=== PATIENT | male | born 1940 | race Caucasian/White ===

== ENCOUNTER 2016-09-07 16:34 | Inpatient (IN) | payer MEDICARE, OTHER ==
--- NOTE | 2016-09-07 17:34 | RAD ---
INDICATION: Short of breath . Recent valvular surgery. COMPARISON: Chest x-ray June 07, 2015 TECHNIQUE: PA and lateral dual-energy views were obtained. FINDINGS: Bones/Soft Tissues: There is interval sternotomy. There is interval cardiac pacemaker placement. Cardiomediastinal: The heart is normal in size. There is no vascular congestion. Lungs: There is mild airspace disease in right lung base Pleura: There are bilateral pleural effusions right greater than left. Other: None IMPRESSION: INTERVAL CARDIOTHORACIC SURGERY. MILD RIGHT BASILAR AIRSPACE DISEASE WITH SMALL BILATERAL PLEURAL EFFUSIONS RIGHT GREATER THAN LEFT.
[2016-09-07 18:53] LABS: Hematocrit 38 % (42-52); Hemoglobin 12.4 g/dl (14.0-18.0); Mean Corpuscular HGB Conc 33 g/dl (31-36); Mean Corpuscular Hemoglobin 28 pg (27-31); Mean Corpuscular Volume 86 fL (80-94); Mean Platelet Volume 8 um3 (7.4-10.4); Red Blood Count 4.39 10^6/ul (4.0-5.4); Red Cell Distribution Width 15 % (10.5-15)
[2016-09-07] MEDS ORDERED: Acetaminophen TAB* 325 MG PO PRN (18:57)
[2016-09-07] MEDS ORDERED: Acetaminophen TAB* 325 MG PO ONE (18:57)
[2016-09-07] MEDS ORDERED: Levofloxacin 750 MG IVPREMIX(* 750 MG/150 ML BAG IVPB ONE (19:06)
[2016-09-07 19:07] LABS: BUN/Creatinine Ratio 18.7 (8-20); C Reactive Protein 246.88 mg/L (< 5.00); Calcium 9.5 mg/dL (8.6-10.3); EGFR African American 67.2 (>60); EGFR Non-African American 52.3 (>60); Globulin 3.8 g/dL (2-4); Potassium 4.7 mmol/L (3.5-5.0); Total Bilirubin 1.5 mg/dL (0.2-1.0); Total Protein 7.8 g/dL (6.4-8.9)
[2016-09-07 19:13] LABS: Troponin I 0.18 ng/mL (<0.04)
[2016-09-07] MEDS ORDERED: Azithromycin IV(*) 500 MG in NS 0.9% 250 ML* 250 ML IVPB ONE (19:14)
--- NOTE | 2016-09-07 19:18 | ED ---
Sabino Morillo Janilya, scribed for Britt Servin MD on 09/07/16 at 1802 . Shortness of Breath - HPI Summary HPI Summary: A 75 y/o male came in to [facility] presenting w/ a gradual onset of constant SOB, low-grade fever of 100.5 F, and light productive cough starting a few days ago. Pt has been using Oxygen, which has relived some of his Sx. In addition, pt states that he has been sleeping more than usual. Pt denies urinary problems. On the or 26 of August, pt had aortic valve replacement and artery bypass surgeries in [place], [place]. The following week, pt had a pacemaker put in. Pt has been taking aspirin. - History of Current Complaint Chief Complaint: EDShortnessOfBreath Time Seen by Provider: 09/07/16 17:14 Hx Obtained From: Patient Onset/Duration: Gradual Onset, Lasting Days, Still Present Timing: Constant Current Severity: Moderate Alleviating Factors: Oxygen Associated Signs & Symptoms: Cough (Productive), Fever - Risk Factors Pulmonary Embolism: Negative Cardiac: Negative Pseudomonas: Negative Tuberculosis: Negative - Allergy/Home Medications Allergies/Adverse Reactions: Allergies Allergy/AdvReac Type Severity Reaction Status Date / Time No Known Drug Allergy Allergy none Verified 06/19/15 11:56 bees AdvReac Intermediate Swelling Uncoded 06/18/15 08:19 Home Medications: Home Medications Furosemide TAB* [Lasix TAB*] 40 mg PO DAILY 09/07/16 [History Confirmed 09/07/16 ] Gpzfkbyumzm-Altlmwjagpz-Vjg C- [Glucosamine Chondroitin] 1 tab PO DAILY [History Confirmed 09/07/16] Levothyroxine TAB* [Synthroid TAB*] 112 mcg PO DAILY 09/07/16 [History Confirmed 09/07/16] Lisinopril TAB* [Prinivil TAB*] 10 mg PO DAILY 09/07/16 [History Confirmed 09/07] Metoprolol Succinate XL TAB* [Toprol XL TAB*] 25 mg PO DAILY 09/07/16 [History Confirmed 09/07/16] Potassium Chlor TAB* [Klor Con ER TAB*] 20 meq PO DAILY 09/07/16 [History Confirmed 09/07/16] Simvastatin (NF) [Zocor (NF)] 40 mg PO QPM 09/07/16 [History Confirmed 09/07/16] oxyCODONE TAB* [Roxycodone TAB 5 mg*] 5 - 10 mg PO Q4HR 09/07/16 [History Confirmed 09/07/16] PMH/Surg Hx/FS Hx/Imm Hx Endocrine/Hematology History: Reports: Hx Diabetes, Hx Thyroid Disease Cardiovascular History: Reports: Hx Coronary Artery Disease - STENT 2010, Hx Hypertension - ON MEDICATION, Hx Myocardial Infarction - SILENT NOT SURE WHEN, Hx Pacemaker/ICD, Hx Valvular Heart Disease - AORTIC VALVE DISORDER, Other Cardiovascular Problems/Disorders - AORTIC ANEURYSM Respiratory History: Reports: Hx Sleep Apnea Denies: Hx Asthma Musculoskeletal History: Reports: Hx Arthritis - LEFT KNEE JOINT Sensory History: Reports: Hx Contacts or Glasses - GLASSES Denies: Hx Hearing Aid Opthamlomology History: Reports: Hx Contacts or Glasses - GLASSES - Surgical History Surgery Procedure, Year, and Place: HERNIA 1963. 2009 [facility]. 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 Have You Smoked in the Last Year: No Review of Systems Positive: Fever - 100.5 F Positive: Shortness Of Breath, Cough - light productive cough Genitourinary: Negative All Other Systems Reviewed And Are Negative: Yes Physical Exam Triage Information Reviewed: Yes Vital Signs On Initial Exam: Initial Vitals Temp Pulse Resp BP Pulse Ox 100.8 F 61 20 152/39 96 09/07/16 16:38 09/07/16 16:38 09/07/16 16:38 09/07/16 16:38 09/07/16 16:38 Vital Signs Reviewed: Yes Appearance: Positive: Well-Appearing, No Pain Distress Skin: Positive: Warm, Skin Color Reflects Adequate Perfusion, Dry, Other - Feels warm to touch Eyes: Positive: EOMI, TELMA ENT: Positive: Pharynx normal, TMs normal Neck: Positive: Supple, Nontender Respiratory/Lung Sounds: Positive: Clear to Auscultation, Breath Sounds Present. Negative: Rales, Rhonchi - no wheezes Cardiovascular: Positive: Tachycardia. Negative: Murmur, Rub - no gallops Abdomen Description: Positive: Nontender, Soft. Negative: Distended, Guarding - no rebound Bowel Sounds: Positive: Present Musculoskeletal: Positive: Strength/ROM Intact. Negative: Edema Left, Edema Right Neurological: Positive: Sensory/Motor Intact, Alert, Oriented to Person Place, Time, CN Intact II-III Psychiatric: Positive: Affect/Mood Appropriate Diagnostics - Vital Signs Vital Signs Temp Pulse Resp BP Pulse Ox 09/07/16 16:38 100.8 F 61 20 152/39 96 - Laboratory Lab Results: Lab Results 09/07/16 09/07/16 09/07/16 Range/Units 18:30 18:30 18:30 WBC 18.0 H (3.5-10.8) 10^3/ul RBC 4.39 (4.0-5.4) 10^6/ul Hgb 12.4 L (14.0-18.0) g/dl Hct 38 L (42-52) % MCV 86 (80-94) fL MCH 28 (27-31) pg MCHC 33 (31-36) g/dl RDW 15 (10.5-15) % Plt Count 254 (150-450) 10^3/ul MPV 8 (7.4-10.4) um3 Neut % (Auto) 92.1 H (38-83) % Lymph % (Auto) 2.6 L (25-47) % Hall % (Auto) 4.6 (1-9) % Eos % (Auto) 0 (0-6) % Baso % (Auto) 0.7 (0-2) % Absolute Neuts (auto) 16.5 H (1.5-7.7) 10^3/ul Absolute Lymphs (auto) 0.5 L (1.0-4.8) 10^3/ul Absolute Monos (auto) 0.8 (0-0.8) 10^3/ul Absolute Eos (auto) 0 (0-0.6) 10^3/ul Absolute Basos (auto) 0.1 (0-0.2) 10^3/ul Absolute Nucleated RBC 0 10^3/ul Nucleated RBC % 0 Sodium 134 (133-145) mmol/L Potassium 4.7 (3.5-5.0) mmol/L Chloride 102 (101-111) mmol/L Carbon Dioxide 24 (22-32) mmol/L Anion Gap 8 (2-11) mmol/L BUN 25 H (6-24) mg/dL Creatinine 1.34 H (0.67-1.17) mg/dL Est GFR ( Amer) 67.2 (>60) Est GFR (Non-Af Amer) 52.3 (>60) BUN/Creatinine Ratio 18.7 (8-20) Glucose 166 H (70-100) mg/dL Lactic Acid 1.8 (0.5-2.0) mmol/L Calcium 9.5 (8.6-10.3) mg/dL Total Bilirubin 1.50 H (0.2-1.0) mg/dL AST 27 (13-39) U/L ALT 29 (7-52) U/L Alkaline Phosphatase 70 (34-104) U/L Troponin I 0.18 H* (<0.04) ng/mL C-Reactive Protein 246.88 H (< 5.00) mg/L B-Natriuretic Peptide ( - 100) pg/mL Total Protein 7.8 (6.4-8.9) g/dL Albumin 4.0 (3.2-5.2) g/dL Globulin 3.8 (2-4) g/dL Albumin/Globulin Ratio 1.1 (1-3) Influenza A (Rapid) (Negative) Influenza B (Rapid) (Negative) 09/07/16 09/07/16 Range/Units 18:30 18:55 WBC (3.5-10.8) 10^3/ul RBC (4.0-5.4) 10^6/ul Hgb (14.0-18.0) g/dl Hct (42-52) % MCV (80-94) fL MCH (27-31) pg MCHC (31-36) g/dl RDW (10.5-15) % Plt Count (150-450) 10^3/ul MPV (7.4-10.4) um3 Neut % (Auto) (38-83) % Lymph % (Auto) (25-47) % Hall % (Auto) (1-9) % Eos % (Auto) (0-6) % Baso % (Auto) (0-2) % Absolute Neuts (auto) (1.5-7.7) 10^3/ul Absolute Lymphs (auto) (1.0-4.8) 10^3/ul Absolute Monos (auto) (0-0.8) 10^3/ul Absolute Eos (auto) (0-0.6) 10^3/ul Absolute Basos (auto) (0-0.2) 10^3/ul Absolute Nucleated RBC 10^3/ul Nucleated RBC % Sodium (133-145) mmol/L Potassium (3.5-5.0) mmol/L Chloride (101-111) mmol/L Carbon Dioxide (22-32) mmol/L Anion Gap (2-11) mmol/L BUN (6-24) mg/dL Creatinine (0.67-1.17) mg/dL Est GFR ( Amer) (>60) Est GFR (Non-Af Amer) (>60) BUN/Creatinine Ratio (8-20) Glucose (70-100) mg/dL Lactic Acid (0.5-2.0) mmol/L Calcium (8.6-10.3) mg/dL Total Bilirubin (0.2-1.0) mg/dL AST (13-39) U/L ALT (7-52) U/L Alkaline Phosphatase (34-104) U/L Troponin I (<0.04) ng/mL C-Reactive Protein (< 5.00) mg/L B-Natriuretic Peptide 299 H ( - 100) pg/mL Total Protein (6.4-8.9) g/dL Albumin (3.2-5.2) g/dL Globulin (2-4) g/dL Albumin/Globulin Ratio (1-3) Influenza A (Rapid) Negative (Negative) Influenza B (Rapid) Negative (Negative) Result Diagrams: 09/07/16 18:30 09/07/16 18:30 Lab Statement: Any lab studies that have been ordered have been reviewed, and results considered in the medical decision making process. - Radiology CXR Xray Interpretation: Positive (See Comments) - IMPRESSION: INTERVAL CARDIOTHORACIC SURGERY. MILD RIGHT BASILAR AIRSPACE DISEASE WITH SMALL BILATERAL PLEURAL EFFUSIONS RIGHT GREATER THAN LEFT. Radiology Interpretation Completed By: Radiologist - EKG 1634 Cardiac Rate: Tachycardia EKG Rhythm: Sinus Tachycardia - at 114 bpm EKG Interpretation: right BBB, PVC, with premature beats; similar to EKG on 12/2014 Course/Dx - Course Course Of Treatment: 75 yo male s/p aortic valve replacement sent in by Dr. Weiss with sob pt has wbc of 18K and a likely pneumonia. Hospitalist is already in the room, sepsis is in the differential as well as chf, but his bnp is not elevated. The hospitalist will be deciding on fluids for this pt. We did decide on abx and ceftriaxone and azithro have been ordered. Labs drawn at the [facility] show a ddimer that is elevated and the hospitalist will be made aware of this as well. - Diagnoses Provider Diagnoses: Pneumonia Discharge - Discharge Plan Condition: Stable Disposition: ADMITTED TO [facility] Referrals: Omari Gonzalez MD [Primary Care Provider] - The documentation as recorded by the Sabino tang Janilya accurately reflects the service I personally performed and the decisions made by me, Britt Servin MD.
[2016-09-07] MEDS ORDERED: oxyCODONE/Acetamin 5/325 MG* TAB PO PRN (19:29)
[2016-09-07] MEDS ORDERED: Ondansetron INJ* 2 MG/ML VIAL IV PRN (19:29)
[2016-09-07] MEDS ORDERED: NS 0.9% 1000 ML* 1,000 ML IV SCH (19:30)
[2016-09-07] MEDS ORDERED: Azithromycin IV(*) 500 MG in NS 0.9% 250 ML* 250 ML IVPB SCH (20:00)
[2016-09-07] MEDS ORDERED: cefTRIAXone VIAL(*) 1,000 MG in NS 0.9% 50 ML* 50 ML IVPB SCH (20:00)
[2016-09-07] MEDS ORDERED: Enoxaparin(*) 40 MG/0.4 ML SYR SUBCUT SCH (20:00)
[2016-09-07] MEDS ORDERED: cefTRIAXone VIAL(*) 1,000 MG in NS 0.9% 50 ML* 50 ML IVPB ONE (20:00)
[2016-09-07] MEDS ORDERED: Cefepime(*) 2 GM in NS 0.9% 50 ML* 50 ML IVPB SCH (20:00)
[2016-09-07] MEDS ORDERED: Levofloxacin 500 MG IVPREMIX(* 500 MG/100 ML BAG IVPB SCH (20:00)
[2016-09-07 20:08] LABS: Urine Bilirubin Negative (Negative); Urine Glucose Negative (Negative); Urine Nitrite Negative (Negative)
[2016-09-07] MEDS ORDERED: ceFAZolin 2 GM PREMIX (*) 0 GM/0 ML BAG IVPB ONE (20:18)
[2016-09-07] MEDS ORDERED: Levofloxacin 500 MG IVPREMIX(* 500 MG/100 ML BAG IVPB ONE (20:30)
[2016-09-07] MEDS ORDERED: Heparin DRIP 25,000 UNITS(*) 25,000 UNITS/500 ML BAG IVPB SCH (20:30)
[2016-09-07] MEDS ORDERED: Heparin VIAL(*) 5000 UNITS/ML VIAL (FIVE THOUSAND) IV SCH (21:00)
--- NOTE | 2016-09-07 21:14 | HP ---
HISTORY AND PHYSICAL:* ADDENDUM: DATE OF ADMISSION: 09/07/16 Shortly after admission, it was made aware that his outpatient labs from earlier today included a D-dimer which was grossly positive, reported at greater than 1050. This certainly may be due to recent surgery, but PE cannot be excluded. He is not a good candidate for CTA at this time due to his acute kidney injury. We will elect to hydrate him overnight to repeat basic metabolic panel in the morning and in the interim empirically treat with a heparin drip. Assuming that his renal function improves back to baseline tomorrow, he will undergo CTA to evaluate for pulmonary embolus to further determine longer term anticoagulation needs. JHONY ALBA [id number]/[facility] #: [id number]
[2016-09-07] MEDS ORDERED: CEFTAZIDIME 2 GM IVPB SCH ×2 (21:30)
--- NOTE | 2016-09-07 21:33 | HP ---
ADDENDUM NOW INCLUDED ON THIS REPORT ADMISSION HISTORY AND PHYSICAL: DATE OF ADMISSION: 09/07/16 PRIMARY CARE PROVIDER: Omari Gonzalez MD PRIMARY ELECTRONIC MUSICAL INSTRUMENT REPAIRER: Dr. Weiss. SUPERVISING PHYSICIAN: Everardo Cutler MD* (DICTATED BY JHONY ALBA) CHIEF COMPLAINT: Dyspnea. HISTORY OF PRESENT ILLNESS: This is a 75-year-old gentleman who recently underwent aortic valve replacement, CABG, and pacemaker placement who was referred by Dr. Weiss to the emergency department for evaluation of dyspnea. The patient's dyspnea started earlier this morning but he has had a productive cough over the last couple of days. He has been afebrile at home, but reports increased fatigue over the last couple of days and has been sleeping the majority of the day. The patient had a routine scheduled followup with Dr. Weiss today where he mentioned the dyspnea. He underwent pacemaker interrogation and echocardiogram, results of which are not available for review at this time. The patient reports no lower extremity edema or complaints of orthopnea. Denies abdominal pain, nausea, vomiting, diarrhea or urinary symptoms. PAST MEDICAL HISTORY: 1. Hypertension. 2. Aortic stenosis, status post aortic valve replacement. 3. Coronary artery disease, status post CABG. 4. Third degree heart block status post pacemaker placement. 5. Osteoarthritis. 6. History of diabetes, which improved with weight loss. 7. Hyperlipidemia. 8. Hypothyroidism. 9. AAA noted to be stable on prior imaging. PAST SURGICAL HISTORY: 1. CABG and aortic valve replacement on 08/25/16. 2. Pacemaker insertion on 08/31/16. 3. Bilateral inguinal hernia repairs. 4. Total knee arthroplasty. HOME MEDICATIONS: 1. Aspirin 162.5 mg p.o. daily. 2. Lasix 40 mg p.o. daily. 3. Glucosamine and chondroitin supplement 1 tablet p.o. daily. 4. Levothyroxine 112 mcg p.o. daily. 5. Lisinopril 10 mg p.o. daily. 6. Metoprolol succinate 25 mg p.o. daily. 7. Potassium chloride 20 mEq p.o. daily. 8. Simvastatin 40 mg p.o. daily. 9. Oxycodone 5 mg p.o. q.4 hours as needed for pain. FAMILY HISTORY: A brother had a history of acute MO and another brother had what sounded to be congenital heart disease. SOCIAL HISTORY: The patient lives with a female partner. He has less than 5- pack- year smoking history and denies any regular alcohol consumption. REVIEW OF SYSTEMS: As listed above in HPI and otherwise negative. PHYSICAL EXAMINATION GENERAL: This is a pleasant 75-year-old gentleman, lying comfortably in the hospital stretcher, accompanied by female partner, in no acute distress. VITAL SIGNS: Initial vitals are temperature 100.8 degrees Fahrenheit, pulse 61 beats per minute, respiratory rate 20, oxygen saturation 96% on room air, and blood pressure of 152/39 mmHg. Repeat vitals in the emergency department showed temperature at 102.8 degrees Fahrenheit, and pulse gianluca to 117 beats per minute, respiratory rate of 26, and oxygen saturation 95% on 2 L but blood pressure remaining the same at 154/48 mmHg. HEENT: Head is normocephalic and atraumatic. Mucous membranes are mildly dry. NECK: Supple and free of lymphadenopathy. No JVD appreciated. RESPIRATORY: There are reduced breath sounds appreciated in the right lower lobe but otherwise clear without crackles, rhonchi, or wheeze. CARDIOVASCULAR: Heart has a regular rate and rhythm. There is a subtle murmur appreciated. ABDOMEN: Soft and nontender to palpation. EXTREMITIES: No lower extremity edema appreciated. SKIN: Evaluated recent surgical sites, which includes a midline sternotomy incision that appears to be healing well without significant erythema or purulent drainage. There is also a pacemaker placed in the left upper chest. Steri-Strips are still in place, but again no gross erythema or purulent drainage. No fluctuance appreciated. PSYCH: The patient is alert and appropriately oriented. LABORATORY DATA: CBC: White blood cell count of 18,000, hemoglobin 12.4 g/dL , and platelet count of 254,000. Comprehensive metabolic panel shows normal sodium of 134 mmol/L, potassium 4.7 mmol/L. BUN elevated at 25, creatinine elevated at 1.34. Random glucose of 166 mg/dL. Total bilirubin mildly elevated at 1.5 with normal transaminases. Troponin mildly elevated at 0.18. CRP significantly elevated at 246. BNP mildly elevated at 299,000. Influenza screening is negative. Chest x-ray shows right pleural effusion. EKG shows sinus rhythm with biphasic precordial leads and a borderline right bundle- branch block. ASSESSMENT AND PLAN: This is a 75-year-old gentleman with a recent aortic valve replacement and CABG and pacemaker insertion who presents with dyspnea and productive cough, noted to be febrile in the emergency department. He is being admitted for presumed pneumonia. 1. Pneumonia - no significant infiltrate appreciated on chest x-ray, but there is pleural effusion and has history of productive cough and dyspnea accompanying obvious infectious parameters including fever, leukocytosis, and elevated CRP makes this most likely to be pneumonia. Urinalysis and culture are still pending. Blood cultures have also been collected. Based on his recent surgery and hospitalization, this will be classified as a hospital required pneumonia and treated as such with Levaquin, vancomycin, and cefepime. Sputum cultures have also been ordered. 2. Acute kidney injury - assume this is due to his acute infectious stage. Hold his Lasix and we will give him 1 L of fluid slowly. 3. Elevated troponin - assume this is demand related at this time. We will cycle troponins accordingly. 4. Recent pacemaker placement for what sounds to be third degree block. 5. Recent CABG and aortic valve replacement at [place]. 6. Hypothyroidism. Continue levothyroxine. 7. Hypertension. Continue metoprolol succinate. We will hold JIMENA inhibitor in the setting of acute kidney injury. 8. Hyperlipidemia - continue simvastatin. 9. Code status. The patient is full code. 10. DVT prophylaxis. The patient is at moderate to high risk for DVT and will be placed on 40 mg of Lovenox subcu daily. 11. Healthcare proxy is the patient's stepdaughter, Ro Rasmussen. DISPOSITION: The patient is being admitted to the hospital under inpatient status for pneumonia, status post CABG, aortic valve replacement, and pacemaker placement. ANTICIPATED LENGTH OF STAY: Greater than 2 days. JHONY ALBA ADDENDUM: DATE OF ADMISSION: 09/07/16 Shortly after admission, it was made aware that his outpatient labs from earlier today included a D-dimer which was grossly positive, reported at greater than 1050. This certainly may be due to recent surgery, but PE cannot be excluded. He is not a good candidate for CTA at this time due to his acute kidney injury. We will elect to hydrate him overnight to repeat basic metabolic panel in the morning and in the interim empirically treat with a heparin drip. Assuming that his renal function improves back to baseline tomorrow, he will undergo CTA to evaluate for pulmonary embolus to further determine longer term anticoagulation needs. JHONY ALBA CC: Omari Gonzalez MD; Dr. Weiss * [id number]/[facility] #: [id number]/[facility] #: [id number] BESSY
[2016-09-07] MEDS ORDERED: NS 0.9% 1000 ML* 500 ML IV ONE (21:34)
[2016-09-07] MEDS ORDERED: Vancomycin(*) 1,250 MG in NS 0.9% 250 ML* 250 ML IVPB ONE (22:00)
[2016-09-08 00:26] LABS: FIO2 40
[2016-09-08 00:29] LABS: PCO2 Arterial 35 mmHg (35-45)
[2016-09-08] MEDS ORDERED: Iodixanol* (CONTRAST) 320 MG/ML 100 ML SDV IV ONE (00:44)
[2016-09-08] MEDS ORDERED: Norepinephrine 16MCG/ML IVPRE* 4,000 MCG/250 ML BAG IV ONE ×2 (01:22→03:30)
[2016-09-08] MEDS ORDERED: Succinylcholine* 20 MG/ML 10 ML VIAL ONE (01:32)
[2016-09-08] MEDS ORDERED: Etomidate* 2 MG/ML 20 ML VIAL (40 MG) ONE (01:33)
[2016-09-08] MEDS ORDERED: Norepinephrine 16MCG/ML IVPRE* 4,000 MCG/250 ML BAG IV SCH (02:00)
[2016-09-08] MEDS ORDERED: NS 0.9% 1000 ML* 1,000 ML IV SCH (02:00)
[2016-09-08] MEDS ORDERED: Propofol* 100 ML ONE (02:42)
--- NOTE | 2016-09-08 02:52 | DS ---
TRANSFER SUMMARY Date of Admission: 09/07/2016 Date of Discharge: 09/08/2016 TRANSFER Diagnoses massive B pulmonary embolisms 2 weeks s/p bovine AVR & 1vCABG via sternotomy 1 week s/p pacer placement for 3rd degree AV block DM2, diet controlled HTN HLD hypothyroidism HPI This is a 75-year-old gentleman who recently underwent aortic valve replacement , CABG, and pacemaker placement who was referred by Dr. Weiss to the emergency department for evaluation of dyspnea. The patient's dyspnea started earlier this morning but he has had a productive cough over the last couple of days. He has been afebrile at home, but reports increased fatigue over the last couple of days and has been sleeping the majority of the day. The patient had a routine scheduled followup with Dr. Weiss today where he mentioned the dyspnea. He underwent pacemaker interrogation and echocardiogram, results of which are not available for review at this time. The patient reports no lower extremity edema or complaints of orthopnea. Denies abdominal pain, nausea, vomiting, diarrhea or urinary symptoms. Hospital Course Mr Morris presented during the day with constellation most concerning for HCAP. However due to his high risk of PE and concurrent JUAN it was decided to initiate heparin GTT, rehydrate the kidneys overnight, & perform CTA in AM. However within hours of admission, Mr Morris sat up to use a urinal becoming instantly severely SOB, tachycardic in the 150s, and hypotensive with systolics in the 70s-80s. He had no chest pain. SaO2 dropped to the high 80s, but were easily brought back to the mid 90s with an oxymask at ~5L. He was sent immediately to CTA of chest and then to ICU. Films were reviewed by myself in radiology identifying B massive pulmonary embolisms. As we do not have the capability for thrombectomy or intravascular tPA, a call to [facility] where he had his bovine AVR, 1vCABG, & pacer placed recently was made. Dr Tamez accepted the patient and ICU bed [address] Torres, ED graciously placed a femoral line for use of norepinephrine GTT for pressure support. Due to his co- morbidities and massive clot burden decision was made to intubate for safety en route. He will be sent on NS @125cc/hr, heparin GTT, norepinephrine GTT, & propofol GTT. Discharge Exam Lungs: clear CV: sinus tach, normal S1S2 abdomen: SNTND skin: diaphoretic, cool Radiology Exams CTA chest: massive B pulmonary embolism CXR: mild R basilar airspace disease, small B effusions Time for Discharge: 40min
[2016-09-08] MEDS ORDERED: fentaNYL* 50 MCG/ML 5 ML VIAL (250 MCG VIAL) ONE ×2 (03:30→03:34)
[2016-09-08 05:54] VITALS: BP 106/48
[2016-09-08] MEDS ORDERED: Levothyroxine TAB* 112 MCG TAB PO SCH (06:00)
--- NOTE | 2016-09-08 06:54 | PN ---
Progress Note - Progress Note Note: INTUBATION PROCEDURE NOTE INDICATION: airway protection in a critically ill patient for transfer to [facility] PROCEDURE PARACHUTE/COMBATANT DIVER OFFICER: Jose Leos MD ATTENDING PHYSICIAN: Bijan Torres MD CONSENT: Consent was obtained from Mr Morris prior to the procedure. Indications , risks, and benefits were explained at length. PROCUDURE SUMMARY: My hands were washed immediately prior to the procedure. [place] precautions were practiced. The patient was placed on a playground monitor including continuous pulse oximetry. Integrity of endotracheal tube balloon was demonstrated. Rapid sequence intubation was conducted. The patient received etomidate 20mg IV & succinyl choline for adequate paralysis. Using a Glidescope and size 8 endotracheal tube with stylet, the patient was intubated on the first attempt. The stylet was removed and cuff balloon was inflated. Appropriate endotracheal tube position was confirmed by direct visualization of vocal cord passage, fogging of the tube, and symmetric breath sounds. The tube was secured at 23cm at the lips. Post intubation chest x-ray confirmed appropriate placement. Attending physician was present throughout.
--- NOTE | 2016-09-08 08:10 | RAD ---
HISTORY: Elevated d-dimer, dyspnea COMPARISONS: None TECHNIQUE: Multiple contiguous axial CT scans of the chest were obtained after the administration of nonionic intravenous contrast, timed to the pulmonary arterial phase of contrast enhancement.. Coronal and sagittal multiplanar reformations are also submitted for review. FINDINGS: NECK AND THYROID: The lower neck and thyroid are unremarkable. CHEST WALL: There is no lower cervical, axillary, or supraclavicular lymphadenopathy by size criteria. A left-sided pacemaker is noted. HEART AND PERICARDIUM: The heart is unremarkable. AORTA AND PULMONARY VASCULATURE: A prosthetic aortic valve is noted. There are multiple pulmonary arterial filling defects within the lobar branches bilaterally. The thoracic aorta is otherwise unremarkable. There is ulcerated plaque versus short segment dissection of the abdominal aorta MEDIASTINUM: There are calcified mediastinal lymph nodes YANET: There is no hilar lymphadenopathy by size criteria. AIRWAY AND ESOPHAGUS: The airway is unremarkable, without endobronchial filling defect. The esophagus is grossly normal. LUNG PARENCHYMA: There is atelectasis of the right lower lobe. PLEURA: There is a moderate to large right pleural effusion. This may be partially loculated. There is a trace left pleural effusion UPPER ABDOMEN: As noted above, there is a short segment dissection versus ulcerated plaque of the abdominal aorta. Calcium adrenals are noted in the spleen. BONES AND SOFT TISSUES: Degenerative changes are noted of the spine. The patient is status post median sternotomy. OTHER: None. IMPRESSION: 1. MULTIPLE PULMONARY ARTERIAL FILLING DEFECTS IN THE LOBAR BRANCHES BILATERALLY CONSISTENT WITH BILATERAL PULMONARY EMBOLI. FINDINGS WERE COMMUNICATED TO DR. JORGE AT APPROXIMATELY 1:28 AM ON SEPTEMBER 08, 2016. 2. MODERATE TO LARGE RIGHT PLEURAL EFFUSION THAT MAY BE PARTIALLY LOCULATED. THERE IS ASSOCIATED COMPRESSIVE ATELECTASIS OF THE RIGHT LOWER LOBE. 3. ATHEROSCLEROSIS. THERE IS A SHORT SEGMENT DISSECTION VERSUS ULCERATIVE PLAQUE OF THE ABDOMINAL AORTA.
--- NOTE | 2016-09-08 08:12 | RAD ---
HISTORY: endotracheal tube placement COMPARISONS: September 07, 2016 at 5:24 PM, CT dated September 08, 2016 VIEWS:1: Single frontal portable view of the chest at 2:05 AM FINDINGS: LINES AND TUBES: An endotracheal tube is noted with the tip overlying the trachea at level clavicles. A left-sided pacemaker generator is noted. CARDIOMEDIASTINAL SILHOUETTE: The cardiomediastinal silhouette is normal for portable technique. PLEURA: Again noted is a partially loculated right pleural effusion LUNG PARENCHYMA: There is atelectasis of the right lower lung ABDOMEN: The upper abdomen is clear. There is no subphrenic gas. BONES AND SOFT TISSUES: The patient is status post median sternotomy. IMPRESSION: 1. LINES AND TUBES ABOVE. 2. RIGHT PLEURAL EFFUSION, PARTIALLY LOCULATED, WITH RIGHT BASILAR ATELECTASIS
--- NOTE | 2016-09-08 08:13 | RAD ---
HISTORY: Central line placement COMPARISONS: None VIEWS: Frontal views of the abdomen. FINDINGS: BOWEL: There is a nonobstructive bowel gas pattern. CALCULI: There are no abnormal calculi. BONES AND SOFT TISSUES: Degenerative changes are noted of the spine OTHER FINDINGS: Contrast is noted within the bladder. There is a central venous catheter overlying the expected location of the right common iliac vein. IMPRESSION: NONSPECIFIC BOWEL GAS PATTERN. LINES AND TUBES ABOVE.
[2016-09-08] MEDS ORDERED: Potassium Chlor TAB* 20 MEQ TAB.ER PO SCH (09:00)
[2016-09-08] MEDS ORDERED: Aspirin TAB* 325 MG PO SCH (09:00)
[2016-09-08] MEDS ORDERED: Atorvastatin* 20 MG TAB PO SCH (18:00)
[2016-09-08] MEDS ORDERED: Metoprolol Succinate XL TAB* 25 MG PO SCH (19:00)
== END 2016-09-08 03:45 | disposition short-term general hospital (02) | DRG 208 ==
LOC: ED 16:34 → MEDTELE 20:43 → ICU 09-08 00:14
PROVIDERS: ADMIT Hospitalist; ATTEND Hospitalist
PROC: 0BH17EZ Insertion of Endotracheal Airway into Trachea, Via Natural or Artificial Opening (ICD-10-PCS; principal; 2016-09-08)
PROC: 5A1935Z Respiratory Ventilation, Less than 24 Consecutive Hours (ICD-10-PCS; 2016-09-08)
PROC: 06HM33Z Insertion of Infusion Device into Right Femoral Vein, Percutaneous Approach (ICD-10-PCS; 2016-09-08)
DX: I26.99 Other pulmonary embolism without acute cor pulmonale (principal); I44.2 Atrioventricular block, complete; N17.9 Acute kidney failure, unspecified; I25.810 Atherosclerosis of coronary artery bypass graft(s) without angina pectoris; E11.9 Type 2 diabetes mellitus without complications; I11.9 Hypertensive heart disease without heart failure; E78.5 Hyperlipidemia, unspecified; E03.9 Hypothyroidism, unspecified; I71.4 Abdominal aortic aneurysm, without rupture; R74.8 Abnormal levels of other serum enzymes; M19.90 Unspecified osteoarthritis, unspecified site; Z96.659 Presence of unspecified artificial knee joint; Z79.84 Long term (current) use of oral hypoglycemic drugs; Z95.4 Presence of other heart-valve replacement; Z95.0 Presence of cardiac pacemaker; Z79.82 Long term (current) use of aspirin; Z95.1 Presence of aortocoronary bypass graft; Z79.891 Long term (current) use of opiate analgesic; Z79.899 Other long term (current) drug therapy; Z82.49 Family history of ischemic heart disease and other diseases of the circulatory system; Z87.891 Personal history of nicotine dependence
CPT/HCPCS: 36415; 71010; 71020; 71275; 74000; 80053; 81003; 82803; 83605; 83880; 84145; 84484; 85025; 85379; 85730; 86140; 87040; 87502; 93005; 99284; A9270-GY; J0330; J0690; J0696; J0713; J1644; J1650; J1956; J2704; J3010; J3370; Q9967

== ENCOUNTER 2017-10-05 02:28 | Emergency (ER) | payer MEDICARE, OTHER ==
[2017-10-05] MEDS ORDERED: Aspirin Low Dose CHEW TAB* 81 MG PO ONE (02:45)
[2017-10-05 03:05] LABS: ABS Basophils 0 10^3/ul (0-0.2); ABS Eosinophils 0 10^3/ul (0-0.6); ABS Lymphocytes 1.5 10^3/ul (1.0-4.8); ABS Monocytes 0.3 10^3/ul (0-0.8); ABS Neutrophils 10.5 10^3/ul (1.5-7.7); ABS Nucleated RBC 0 10^3/ul; Eosinophil % 0.3 % (0-6); Hematocrit 43 % (42-52); Hemoglobin 14.5 g/dl (14.0-18.0); Lymphocyte % 11.8 % (25-47); Mean Corpuscular HGB Conc 33 g/dl (31-36); Mean Corpuscular Hemoglobin 29 pg (27-31); Mean Corpuscular Volume 87 fL (80-94); Mean Platelet Volume 8 um3 (7.4-10.4); Nucleated Red Blood Cells % 0; Platelet Count 173 10^3/ul (150-450); Red Blood Count 5.02 10^6/ul (4.0-5.4); Red Cell Distribution Width 14 % (10.5-15); White Blood Count 12.3 10^3/ul (3.5-10.8)
[2017-10-05] MEDS ORDERED: Ketorolac INJ* 30 MG/ML 1 ML VIAL IV PUSH ONE (03:11)
[2017-10-05 03:14] LABS: INR 0.92 (0.77-1.02)
[2017-10-05 03:15] LABS: EGFR Non-African American 78.4 (>60)
[2017-10-05 04:45] VITALS: BP 156/69
--- NOTE | 2017-10-05 06:25 | ED ---
Alisson Morillo Julia, scribed for Sergio Haq MD on 10/05/17 at 0245 . HPI Chest Pain - HPI Summary HPI Summary: This patient is a 76 year old M presenting to [facility] with a chief complaint of lower anterior rib pain for the past week s/p fall worsening last night at 22: 00. Pt fell 8 days ago and hit his R hand into his anterior ribs and has had consistent pain since the fall. The patient rates the pain 6/10 in severity. Symptoms aggravated by deep breaths. Patient has a hx of CABG, OA, HTN, HLD. He takes baby ASA and 2 Oxycodone daily. - History of Current Complaint Chief Complaint: EDChestPainROMI Hx Obtained From: Patient Onset/Duration: Started Weeks Ago Timing: Constant Pain Intensity: 6 Pain Scale Used: 0-10 Numeric Chest Pain Location: Lower Sternal - and lower ribs Aggravating Factor(s): Deep Breaths Related History: Similar Episode/Dx as: - CABG, HTN - Additional Pertinent History Primary Care Physician: [id number] - Allergy/Home Medications Allergies/Adverse Reactions: Allergies Allergy/AdvReac Type Severity Reaction Status Date / Time bees AdvReac Intermediate Swelling Uncoded 10/05/17 02:38 PMH/Surg Hx/FS Hx/Imm Hx Endocrine/Hematology History: Reports: Hx Diabetes - TYPE II, Hx Thyroid Disease Cardiovascular History: Reports: Hx Coronary Artery Disease - STENT 2010, Hx Hypertension - ON MEDICATION, Hx Myocardial Infarction - SILENT NOT SURE WHEN, Hx Pacemaker/ICD, Hx Valvular Heart Disease - AORTIC VALVE DISORDER, Other Cardiovascular Problems/Disorders - AORTIC ANEURYSM Respiratory History: Reports: Hx Sleep Apnea Denies: Hx Asthma History: Denies: Hx Renal Disease Musculoskeletal History: Reports: Hx Arthritis - LEFT KNEE JOINT Sensory History: Reports: Hx Contacts or Glasses - GLASSES Denies: Hx Hearing Aid Opthamlomology History: Reports: Hx Contacts or Glasses - GLASSES - Surgical History Surgery Procedure, Year, and Place: HERNIA 1963. 2010 [facility] [place]. 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 Have You Smoked in the Last Year: No Review of Systems Negative: Fever Positive: Chest Pain All Other Systems Reviewed And Are Negative: Yes Physical Exam - Summary Physical Exam Summary: Appearance: Well appearing, no pain distress Skin: warm, dry, reflects adequate perfusion Head/face: normal Eyes: EOMI, TELMA ENT: normal, moist mucous membranes Neck: supple, non-tender Respiratory: CTA, breath sounds present Cardiovascular: RRR, pulses symmetrical, sternotomy scar, tenderness to palpation to left lateral chest wall without swelling or bruising, pacemaker left chest, no signifcantpain to palpation to anterior chest Abdomen: non-tender, soft Bowel: present Musculoskeletal: normal, strength/ROM intact, no LE edema Neuro: normal, sensory motor intact, A&Ox3 Triage Information Reviewed: Yes Vital Signs On Initial Exam: Initial Vitals Temp Pulse Resp BP Pulse Ox 97.3 F 65 18 168/72 97 10/05/17 02:32 10/05/17 02:32 10/05/17 02:32 10/05/17 02:32 10/05/17 02:32 Vital Signs Reviewed: Yes Diagnostics - Vital Signs Vital Signs Temp Pulse Resp BP Pulse Ox 10/05/17 02:32 97.3 F 65 18 168/72 97 - Laboratory Lab Results: Lab Results 10/05/17 10/05/17 10/05/17 Range/Units 02:48 02:48 02:48 WBC 12.3 H (3.5-10.8) 10^3/ul RBC 5.02 (4.0-5.4) 10^6/ul Hgb 14.5 (14.0-18.0) g/dl Hct 43 (42-52) % MCV 87 (80-94) fL MCH 29 (27-31) pg MCHC 33 (31-36) g/dl RDW 14 (10.5-15) % Plt Count 173 (150-450) 10^3/ul MPV 8 (7.4-10.4) um3 Neut % (Auto) 84.9 H (38-83) % Lymph % (Auto) 11.8 L (25-47) % [place] % (Auto) 2.8 (1-9) % Eos % (Auto) 0.3 (0-6) % Baso % (Auto) 0.2 (0-2) % Absolute Neuts (auto) 10.5 H (1.5-7.7) 10^3/ul Absolute Lymphs (auto) 1.5 (1.0-4.8) 10^3/ul Absolute Monos (auto) 0.3 (0-0.8) 10^3/ul Absolute Eos (auto) 0 (0-0.6) 10^3/ul Absolute Basos (auto) 0 (0-0.2) 10^3/ul Absolute Nucleated RBC 0 10^3/ul Nucleated RBC % 0 INR (Anticoag Therapy) 0.92 (0.77-1.02) APTT 30.0 (26.0-36.3) seconds Sodium (133-145) mmol/L Potassium (3.5-5.0) mmol/L Chloride (101-111) mmol/L Carbon Dioxide (22-32) mmol/L Anion Gap (2-11) mmol/L BUN (6-24) mg/dL Creatinine (0.67-1.17) mg/dL Est GFR ( Amer) (>60) Est GFR (Non-Af Amer) (>60) BUN/Creatinine Ratio (8-20) Glucose (70-100) mg/dL Lactic Acid (0.5-2.0) mmol/L Calcium (8.6-10.3) mg/dL Total Bilirubin (0.2-1.0) mg/dL AST (13-39) U/L ALT (7-52) U/L Alkaline Phosphatase (34-104) U/L Troponin I (<0.04) ng/mL B-Natriuretic Peptide 76 ( - 100) pg/mL Total Protein (6.4-8.9) g/dL Albumin (3.2-5.2) g/dL Globulin (2-4) g/dL Albumin/Globulin Ratio (1-3) 10/05/17 10/05/17 Range/Units 02:48 02:48 WBC (3.5-10.8) 10^3/ul RBC (4.0-5.4) 10^6/ul Hgb (14.0-18.0) g/dl Hct (42-52) % MCV (80-94) fL MCH (27-31) pg MCHC (31-36) g/dl RDW (10.5-15) % Plt Count (150-450) 10^3/ul MPV (7.4-10.4) um3 Neut % (Auto) (38-83) % Lymph % (Auto) (25-47) % [place] % (Auto) (1-9) % Eos % (Auto) (0-6) % Baso % (Auto) (0-2) % Absolute Neuts (auto) (1.5-7.7) 10^3/ul Absolute Lymphs (auto) (1.0-4.8) 10^3/ul Absolute Monos (auto) (0-0.8) 10^3/ul Absolute Eos (auto) (0-0.6) 10^3/ul Absolute Basos (auto) (0-0.2) 10^3/ul Absolute Nucleated RBC 10^3/ul Nucleated RBC % INR (Anticoag Therapy) (0.77-1.02) APTT (26.0-36.3) seconds Sodium 138 (133-145) mmol/L Potassium 4.1 (3.5-5.0) mmol/L Chloride 105 (101-111) mmol/L Carbon Dioxide 27 (22-32) mmol/L Anion Gap 6 (2-11) mmol/L BUN 14 (6-24) mg/dL Creatinine 0.94 (0.67-1.17) mg/dL Est GFR ( Amer) 100.9 (>60) Est GFR (Non-Af Amer) 78.4 (>60) BUN/Creatinine Ratio 14.9 (8-20) Glucose 214 H (70-100) mg/dL Lactic Acid 1.4 (0.5-2.0) mmol/L Calcium 9.7 (8.6-10.3) mg/dL Total Bilirubin 0.50 (0.2-1.0) mg/dL AST 16 (13-39) U/L ALT 13 (7-52) U/L Alkaline Phosphatase 89 (34-104) U/L Troponin I 0.00 (<0.04) ng/mL B-Natriuretic Peptide ( - 100) pg/mL Total Protein 7.7 (6.4-8.9) g/dL Albumin 4.5 (3.2-5.2) g/dL Globulin 3.2 (2-4) g/dL Albumin/Globulin Ratio 1.4 (1-3) Result Diagrams: 10/05/17 02:48 10/05/17 02:48 Lab Statement: Any lab studies that have been ordered have been reviewed, and results considered in the medical decision making process. - Radiology CXR (Ribs) Radiology Interpretation Completed By: ED Physician - no PTX, no definate fractures - EKG 0227 Cardiac Rate: NL - at 70 BPM, Other Rate ST Segment: Non-Specific Ectopy: PVCs - single EKG Interpretation: RBBB Re-Evaluation - Re-Evaluation 1 Re-Evaluation Time: 04:30 Change: Improved - Pt's pain is resolved with a Fentonyl patch Chest Pain Course/Dx - Course Course Of Treatment: Injury to chest wall. Constant pain since. Tonight some pain on L side also. No def fx seen. No Pneumonia seen. Pain totally gone with toradol. No ECG change or trop elevation. Tx symptomatically. Pt had been told to stay off NSAID (rx) given his lisinopril. use cyclobenzaprine. - Chest Pain Differential Diagnosis/HQI/PQRI: Acute OK, ACS, Angina, Chest Wall, GI Disease - Diagnoses Provider Diagnoses: Atypical chest pain, Chest wall contusion Discharge - Discharge Plan Condition: Good Disposition: HOME Prescriptions: Cyclobenzaprine (NF) [Cyclobenzaprine 5 MG (NF)] 5 mg PO TID PRN #15 tab PRN Reason: chest wall/muscle pain Patient Education Materials: Chest Wall Pain (ED) Referrals: Omari Gonzalez MD [Primary Care Provider] - Additional Instructions: Call to follow up with your doctor today. Return with shortness of breath, increased or new pain in your chest, worse, new symptoms or other concerns. The documentation as recorded by the Alisson tang Julia accurately reflects the service I personally performed and the decisions made by , Sergio Haq MD.
--- NOTE | 2017-10-05 08:03 | RAD ---
Indication: Chest pain, rib injury. Dual energy PA view of the chest, 3 views of the right ribs and 3 views of left ribs are reviewed. There is mild osteopenia noted. Overlying metallic structures may obscure some areas of the ribs. No definite fracture is identified. The lung rockwell demonstrate no pneumothorax. No mediastinal shift is noted. Patient is status post transsternal thoracotomy. IMPRESSION: No definite rib fractures are noted. Pacemaker leads are in place. Patient is status post transsternal thoracotomy.
== END 2017-10-05 04:47 | disposition home or self-care (01) ==
LOC: ED 02:28
DX: R07.89 Other chest pain (principal); S20.219A Contusion of unspecified front wall of thorax, initial encounter; W19.XXXA Unspecified fall, initial encounter; Y92.9 Unspecified place or not applicable; Z87.891 Personal history of nicotine dependence
CPT/HCPCS: 36415; 71111; 80053; 83605; 83880; 84484; 85025; 85610; 85730; 93005; 96374; 99283; A9270-GY; J1885

== ENCOUNTER 2017-10-09 08:35 | Inpatient (IN) | payer MEDICARE, OTHER ==
[2017-10-09 09:52] LABS: Hematocrit 38 % (42-52); Hemoglobin 12.7 g/dl (14.0-18.0); Mean Corpuscular HGB Conc 34 g/dl (31-36); Mean Corpuscular Hemoglobin 29 pg (27-31); Mean Corpuscular Volume 87 fL (80-94); Mean Platelet Volume 8 um3 (7.4-10.4); Platelet Count 140 10^3/ul (150-450); Red Blood Count 4.32 10^6/ul (4.0-5.4); Red Cell Distribution Width 14 % (10.5-15); White Blood Count 15.3 10^3/ul (3.5-10.8)
[2017-10-09 10:00] LABS: INR 1.04 (0.77-1.02)
[2017-10-09 10:07] LABS: EGFR Non-African American 24.2 (>60)
[2017-10-09 10:11] LABS: ABS Basophils 0.1 10^3/ul (0-0.2); ABS Eosinophils 0 10^3/ul (0-0.6); ABS Lymphocytes 1.3 10^3/ul (1.0-4.8); ABS Monocytes 1.6 10^3/ul (0-0.8); ABS Neutrophils 12.4 10^3/ul (1.5-7.7); ABS Nucleated RBC 0 10^3/ul; Eosinophil % 0.1 % (0-6); Lymphocyte % 8.3 % (25-47); Nucleated Red Blood Cells % 0
[2017-10-09] MEDS ORDERED: NS 0.9% 1000 ML* 1,000 ML IV SCH (10:30)
[2017-10-09] MEDS ORDERED: Pantoprazole IV* 40 MG IV ONE (10:31)
[2017-10-09] MEDS ORDERED: KCL 10 MEQ/50 ML IVPREMIX* 10 MEQ/50 ML BAG IV SCH (10:31)
[2017-10-09] MEDS ORDERED: Pantoprazole IV* 80 MG in NS 0.9% 250 ML* 250 ML IVPB SCH (11:00)
[2017-10-09] MEDS ORDERED: Potassium Chloride IV* 20 MEQ in NS 0.9% 100 ML* 100 ML IVPB ONE (11:00)
--- NOTE | 2017-10-09 11:31 | RAD ---
Indication: GI bleeding. Single frontal view of the chest performed at 0946 hours was reviewed. Comparison is made with previous exam dated September 08, 2016. No mediastinal shift is noted. Heart is of normal size and configuration. Lung rockwell appear clear. Pacemaker leads are in place. Patient is status post tracer thoracotomy. IMPRESSION: NO ACTIVE CARDIOPULMONARY DISEASE IS NOTED.
[2017-10-09] MEDS ORDERED: Ondansetron INJ* 2 MG/ML VIAL IV PRN (11:45)
[2017-10-09] MEDS ORDERED: Morphine INJ* 4 MG/ML 1 ML SYRINGE (NEW SYRINGE VERSION) IV PRN (11:45)
[2017-10-09 11:58] LABS: Urine Appearance Cloudy; Urine Blood Negative (Negative); Urine Color Yellow; Urine Ketones Negative (Negative); Urine Protein Negative (Negative); Urine Specific Gravity 1.013 (1.010-1.030); Urine Urobilinogen Negative (Negative)
--- NOTE | 2017-10-09 12:31 | RAD ---
Indication: Right red blood per rectum. CT of the abdomen and pelvis was performed without IV contrast. Oral contrast was administered. Coronal and sagittal reconstructed images were obtained. The lung bases demonstrate pleural thickening in the right lung base. Heart demonstrates no pericardial effusion. Liver is normal size. No focal lesions or intrahepatic duct dilatation is noted. The gallbladder demonstrates distended gallbladder. There is suggestion of high density material in the wall of the gallbladder which may represent gallstones. Pericholecystic fluid or wall thickening is noted. The possibility of acute cholecystitis should BE considered. The spleen demonstrates multiple calcifications from old granulomatous disease. The pancreas demonstrates no mass or pancreatic ductal dilatation. The common duct is not dilated. No adrenal masses are noted. The kidneys demonstrate no hydronephrosis. Atherosclerotic aorta is noted. No dilated loops of bowel are noted. CT of the pelvis demonstrates no pelvic adenopathy. Urinary bladder, prostate and seminal vesicles are grossly unremarkable. There is focal wall thickening in the descending colon extending to the sigmoid colon. There is some mild infiltration of fat is noted. This is suggestive of a colitis. There is diverticulosis of the sigmoid colon noted. No evidence of bowel obstruction is dense contrast in the right colon. Urinary bladder is otherwise unremarkable. The visualized bony structures demonstrates multilevel degenerative disc disease. IMPRESSION: There is diffuse circumferential wall thickening of the descending colon with some pericolonic stranding and reticulation of fat. Findings are suggestive of colitis which may be infectious or inflammatory. Additionally there is suggestion of a dilated gallbladder with gallbladder wall thickening and pericholecystic fluid suggestive of cholecystitis. There are likely gallstones in the gallbladder.
[2017-10-09] MEDS ORDERED: Piperacillin/Tazobac ADVAN(*) 3.375 GM in NS 0.9% 100 ML* 100 ML IVPB ONE (13:10)
[2017-10-09] MEDS ORDERED: Zosyn per Pharmacy* NOTE FOLLOW UP SCH (14:00)
[2017-10-09] MEDS: oxyCODONE TAB* 5 MG TAB PO SCH (14:39)
--- NOTE | 2017-10-09 16:00 | HP ---
CC: Dr. Gonzalez * HISTORY AND PHYSICAL: DATE OF ADMISSION: 10/09/17 PRIMARY CARE PROVIDER: Dr. Gonzalez. CHIEF COMPLAINT: Bright red blood per rectum. HISTORY OF PRESENT ILLNESS: Mr. Morris is 76-year-old male who presented to the emergency room on 10/05/17 with complaints of left upper quadrant pain. The patient tells me at that time he had pain right at the lower level of the ribs. He states that it became severely incapacitating and therefore he had presented to the emergency room. He was felt to have likely musculoskeletal pain. 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 He questioned that the pain may have been related to this. The patient states that he took 1 dose of Flexeril on 10/05/17, and following that he did vomit. He states following the vomiting episode his appetite has been worse than normal. The patient's daughter states that his appetite generally is poor; however, he is able to tell me that the appetite is worse than normal. On 10/06/17 the patient began to pass mucus per rectum. By Wednesday evening, the mucus was blood- tinged. On morning patient woke up and start to passing bright red blood per rectum. He was concerned that the Flexeril may have been interacting with his medications and therefore contacted his primary care provider's office to see if there could be any potential interaction. At that point, no recommendations were made. The patient continued to pass bright red blood per rectum on Wednesday and therefore again called his primary's office. At that time, he was instructed to stop the Flexeril. The patient also notes that while he was on the Flexeril and oxycodone together he felt very loopy. On Wednesday when he spoke to the nurse in his primary's office he was instructed, however, to present to the emergency room if the bleeding continued into Wednesday. Because of this the patient presented here. The patient denies feeling unwell. He denies any rectal pain. He denies any abdominal pain. He does state that the pain he was having earlier this week essentially resolved at this point unless he palpates deeply within his abdomen. The patient describes the bleeding episode, as if he has some leakage of a liquid material that he feels some wetness; he will then have the urge to have a bowel movement, he will go to the bathroom, clean himself up, and when he goes he notes that it is pure blood. This seemed to be the pattern. The patient did have a pad on when he came from his home to the hospital today so he will not make a mess. In the ER it was noted that pad was soaked. The pad was placed for approximately 1- 1/2 to 2 hours. The patient states that his bowel movements prior to this beginning were small amount. He never went over 2 days without having a bowel movement. He denies any black stools. He denies stools being hard or dry. The patient's daughter does note that he may have been having some diarrhea, though patient does not admit this to me. PAST MEDICAL HISTORY: 1. Status post bioprosthetic aortic valve replacement and single vessel CABG, August 2016. 2. Status post pacemaker for prolonged pauses. 3. Massive bilateral pulmonary emboli following the August 2016 hospitalization. 4. Borderline diabetes. 5. Hyperlipidemia. 6. Hypothyroidism. PAST SURGICAL HISTORY: 1. Bilateral inguinal hernia repair. 2. Bioprosthetic aortic valve with single vessel CABG. 3. Pacer insertion. 4. Right total knee replacement. 5. Left knee meniscus surgery. MEDICATIONS: 1. Oxycodone 5 mg p.o. twice daily. 2. Lipitor 20 mg p.o. daily. 3. Glucosamine chondroitin 1 tab p.o. daily. 4. Lisinopril 40 mg p.o. daily. 5. Amlodipine 5 mg p.o. daily. 6. Lasix 40 mg p.o. daily. 7. Metoprolol XL 50 mg p.o. daily. 8. Levothyroxine 112 mcg p.o. daily. ALLERGIES: BEES. FAMILY HISTORY: Mom due to suicide when he was a young child. Dad related complications from a gastric ulcer. SOCIAL HISTORY: The patient is a former smoker, he quit in 1979. He drinks alcohol very rarely. He works as a villegas. He is . He has 1 daughter, her name is Ro Rasmussen, phone number [phone]. REVIEW OF SYSTEMS: No fever. No chills. He does again state that his appetite has been poor since this past Wednesday. No chest pain. No palpitations. No edema. No cough. No shortness of breath. He had the one episode of vomiting this past Wednesday. He admits to the abdominal pain that he had had previously. He admits to the bright red blood per rectum. No hematuria. No dysuria. No focal weakness or sensory loss. No sudden changes in vision. No dysphagia. No joint pains or muscle pains out of the ordinary. No rashes. No anxiety or depression. PHYSICAL EXAMINATION GENERAL: The patient is a well-developed elderly male, sitting up in the stretcher; in no acute distress. VITAL SIGNS: Blood pressure 119/60, pulse 85, respirations 19, temp 96.5, O2 sat 98% on room air. HEENT: Pupils are equal and round. Extraocular muscles are intact. Oropharynx is clear. Oral mucosa is moist. There is no submandibular, cervical , or supraclavicular adenopathy. Thyroid is not enlarged. No thyroid nodules are noted. PULMONARY: Lungs are clear to auscultation bilaterally. CARDIAC: Normal S1 and S2. Regular rate and rhythm. There is a soft 2/6 systolic murmur. [place] best at the left upper sternal border. There is no lower extremity edema. ABDOMEN: Bowel sounds are present. Abdomen is soft, nondistended. He has mild tenderness in the left lower quadrant. MUSCULOSKELETAL: There is no cyanosis or clubbing of the digits. There is full active range of motion of all 4 extremities. NEURO: Cranial nerves II through XII are grossly intact. Sensation is intact to light touch throughout. Strength is 5/5 and symmetric in both upper and lower extremities bilaterally. SKIN: Warm and dry. There are no rashes. PSYCH: The patient is alert. He is oriented x3. Affect appears appropriate. LABORATORY DATA/DIAGNOSTIC STUDIES: WBC 15.3, hemoglobin 12.7, hematocrit 38, platelets 140. INR 1.04. Sodium 132, potassium 3.2, chloride 100, CO2 23, BUN 50, creatinine 2.60, glucose 199, bilirubin 1.2, AST 30, ALT 30, alk phos 87, BNP 162, albumin 3.4. Urinalysis reveals a specific gravity of 1.013 and otherwise negative. EKG reveals normal sinus rhythm with a right bundle branch block. He is essentially unchanged from previous. Chest x-ray no active cardiopulmonary disease is noted. ASSESSMENT AND PLAN: Mr. Morris is a 76-year-old male with a history of bioprosthetic aortic valve replacement, not on anticoagulation, history of massive bilateral pulmonary emboli, borderline type 2 diabetes, hypothyroidism, hyperlipidemia, and chronic pain for which he takes twice daily oxycodone, who presents to the emergency room with complaints of bright red blood per rectum. 1. Bright red blood per rectum. My suspicion is the patient may be suffering from a diverticular bleed. The patient describes a truly painless bleed at this point. The patient's hemoglobin has dropped from 14.5 on 10/05/17 down to 12.7 four days later. Additionally, I suspect he is somewhat dehydrated, so volume replacement may cause hemoglobin to drop lower. For now a repeat hemoglobin has been ordered for 1600 today. A GI consult has been requested. I spoke with Dr. Quan who will see the patient today. The plan will be to likely have the patient undergo scope tomorrow. Upper gastrointestinal bleed is in the differential however the patient looks quite well. While the BUN is elevated I do believe that the degree of elevation of the BUN is consistent with the degree of elevation in his creatinine. The patient received Protonix 80 mg p.o. x1. I will continue Protonix twice daily until decision is made about where he is likely bleeding from. 2. Acute renal failure. The patient's baseline creatinine is around 0.8 to 0.9. His creatinine is 3 times his baseline. The etiology to his renal failure is not completely clear. However, I do suspect may be partly related to volume depletion. The patient indicates that he has essentially not had very much to eat over the last several days. This in conjunction with being on Lasix can definitely cause dehydration. The patient has received 1 L of normal saline in the emergency room and will continue with normal saline at 100 mL per hour once he arrives to the floor. A followup BMP will be obtained tomorrow morning. Of note, the patient is mildly hypokalemic. He has ordered to receive 40 mEq of potassium IV. This will be rechecked tomorrow. The patient will have urine sent for urine sodium and urine urea as he is on Lasix making the fractional excretion of sodium not useful. 3. Leukocytosis. The patient has a moderate leukocytosis of 15,300. The patient shows no signs of infection. I suspect this may represent a stress reaction however on 10/05/17 his white blood cell count was elevated to 12.3. The patient is getting a CAT scan now with just oral contrast to see if anything in particular shows up. The patient did complain of left upper quadrant abdominal pain. However, when he described this to me he states that there was also pain within the left flank and intermittently the right flank. The left side seemed to radiate towards the front and possibly down towards the groin, making me suspicious that perhaps he could have had a kidney stone. We will monitor for any other signs of infection by holding off on antibiotics at this point. 4. Borderline diabetes. The patient's hemoglobin A1c will be obtained. For now I will hold off on fingersticks. 5. Hypothyroidism. We will continue patient's Synthroid at his current dose. 6. History of bilateral pulmonary embolisms. The patient will have SCDs ordered. Chemical prophylaxis will be avoided due to the patient's gastrointestinal bleed. 7. Code status is full. Again the patient indicates that his daughter Ro is his healthcare proxy. TIME SPENT: 65 minutes was spent admitting this patient. [id number]/[facility] #: [id number] BESSY
[2017-10-09 16:34] LABS: Hematocrit 38 % (42-52); Hemoglobin 12.7 g/dl (14.0-18.0)
--- NOTE | 2017-10-09 19:29 | RAD ---
Indication: Evaluate for cholecystitis. Real-time sonography of the right upper quadrant was performed. The liver measures 18 cm in length. No focal lesions or intrahepatic ductal dilatation is noted. The gallbladder demonstrates sludge within the gallbladder. Gallstones are noted with gallbladder wall thickening measuring up to 6 mm. Common duct measures 4 mm. Right kidney measures 13.2 x 5.7 x 6.0 cm. Pancreas, aorta and inferior vena cava are not visualized. IMPRESSION: Cholelithiasis. Gallbladder wall thickening and sludge is noted in the gallbladder.
--- NOTE | 2017-10-09 20:56 | CONS ---
GASTROENTEROLOGY CONSULT: DATE: 10/09/17 CONSULTING PHYSICIANS: Omari Gonzalez, Joe Weiss, Aparna Mead. REASON FOR CONSULT: Lower GI bleeding in a man known to have an abdominal aortic aneurysm and status post bioprosthetic aortic valve replacement and pacemaker 13 months ago. HISTORY OF PRESENT ILLNESS: This 76-year-old man, still active on [employer], does not have any chronic gastrointestinal problems. He is having some right subcostal abdominal pain and went to the emergency room on 10/05/17. It was felt to be musculoskeletal and he received a shot of Toradol and was sent home on cyclobenzaprine. The source of the presumed musculoskeletal pain was a fall or overwork or an occluding weightlifters belt he was using to hold up extra close. The very next day, he noticed that he was passing mucus that was bloody. That seemed to increase over the next couple of days. He was not running any fever and did not seem acutely ill. So, when he called in to his primary office, he was just told to stop the cyclobenzaprine. He was not on any NSAIDs apparently other than aspirin 81 mg. He began feeling a little weaker and the mucus discharge was if anything more profuse and so he came to the emergency room for assessment today. Yesterday, he went to the wash room 5 times passing this copious bloody mucus and twice so far today. At this time, he says there is a left subcostal pain in the left lower quadrant , component of distress. It is mild and he does not really feel bad overall. He vomited once yesterday. He had a colonoscopy in 2008 with a small tubular adenoma removed from 40 cm. Some diverticulosis was seen. He has never had any trouble with that. His usual bowel pattern is daily with rare skips. He eats an unrestricted diet and his weight may have gone up to 3 pounds since the time of his cardiac surgery, mid August 2016, in [place]. PAST MEDICAL HISTORY: 1. Coronary disease - single-vessel bypass, August 2016. 2. Conducting system disease - permanent pacemaker, August 2016, for third- degree block postop. 3. Aortic valve replacement. 4. Infrarenal abdominal aneurysm - being followed, having expanded 5 mm at his last ultrasound, CT 10/09/17 dimension pending 5. Hypertension. 6. Gallstones - seen on CT scan. 7. Status post right total knee replacement, 06/18/15. 8. Bilateral pulmonary emboli - August 2016 and treated with warfarin for 6 months. 9. Sigmoid tubular adenoma - 2008 colonoscopy. MEDICATIONS: As an outpatient oxycodone regularly BID, Lipitor 20, lisinopril 40, Toprol 50 XL, levothyroxine 112 mcg, aspirin 81, furosemide 40. ALLERGIES: BEE STINGS. 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 His daughter is a physician, who just moved to the [place] area to pursue acting. His son-in-law was a hospitalist at [facility]. REVIEW OF SYSTEMS: No history of fever, rash, cough, hemoptysis, syncope, palpitations, rectal bleeding prior to this month, hematuria, dysuria, fall, or trauma. PHYSICAL EXAM: He is a middle-aged man, in bed, appearing well, saying he is no distress at this time, afebrile, pulse 86, blood pressure 120/50. HEENT exam shows no icterus. He has no adenopathy. His lungs are clear and heart sounds are regular. The pacer pocket is nontender. The abdomen is symmetric with normal bowel sounds, soft, and with some subjective left-sided deep tenderness. Perianal inspection is normal and rectal reveals a copious amount of mucoid bloody effluent. Extremities show no edema. Neurologic shows normal orientation, mentation, cranial nerves, movement of all 4 extremities and gait. DIAGNOSTIC STUDIES/LAB DATA: Today, white count 15.3, hemoglobin 12.7, hematocrit 38, MCV 87, platelets 140. INR 1.04. Sodium 132; potassium 3.2; BUN 50, up from 4 days ago at 14; creatinine 2.60, up from 4 days ago at 0.94. Bilirubin is 1.20. Albumin 3.4. CT scan - thickening of the left colon on a study without IV contrast but with p.o. contrast. Diverticula are suggested. No change in his aneurysm is mentioned. Addendum on request IMPRESSION: This 76-year-old man has been passing bloody mucus for 3 to 3-1/2 days. It is quite striking, possibly suggest a colitic process. Alternately, it could be from ischemic colitis, although the amount of pain he complains of is rather unimpressive for that diagnosis. Nonetheless, he is clearly somewhat stoical. An unprepped flexible sigmoidoscopy should be of useful information is planned. It is planned to give him some cautious IV hydration and see how his renal function goes. Changes in his aneurysm affecting the inferior mesenteric artery and renal arteries are consideration. [id number] #: [id number] MTDD
[2017-10-09] MEDS: Pantoprazole IV* 40 MG IV SCH (23:08)
[2017-10-09] MEDS: ZOSYN 3.375 GM Q8H per EXTENDED INFUSION IVPB SCH ×2 (23:08)
--- NOTE | 2017-10-09 23:40 | ED ---
Russ Morillo Tiffany, scribed for Windy Figueroa MD on 10/09/17 at 0920 . GI/ HPI - HPI Summary HPI Summary: The patient is a 76 year old M [facility] of bloody mucous and bright red blood per rectum since two nights ago. Symptoms aggravated by nothing. Symptoms alleviated by nothing. Reports decreased appetite and rectal drainage. Denies vomiting, fever, chills. Patient was in ED four days ago, complained of chest wall pain then and additional left-sided abdominal pain that was resolved by the time he departed. Reports mucous stool three days ago which turned to blood tinged mucous, and now bright red blood per rectum. Called primary care providers office yesterday and spoke with nurse, who advised him to present to ED if bloody stools continued. Pt not taking anti- coagulants despite aortic valve replacement. Pt does take ASA 81mg daily. Pt was started on flexeril after the ED visit four days ago and wonders if the bright red blood is related to the flexeril. Pt also wears a tight belt around his abdomen and wonders if the blood is due to the belt. Describes poor appetite for the past several days. Was advised by Dr. Gonzalez's office to seek medical attention today. - History of Current Complaint Chief Complaint: EDGIBleed Time Seen by Provider: 10/09/17 09:00 Stated Complaint: F/U FOR PAIN Hx Obtained From: Patient, Family/Testing Manager - daughter is a physician in [place], I spoke to her by phone Onset/Duration: Started Days Ago - Two nights ago, Still Present Timing: Constant Severity: Moderate Current Severity: Severe Vaginal Bleeding Description: Bright Red Pain Intensity: 0 Associated Signs and Symptoms: Positive: Change in Appetite - decreased, Other: - Decreased appetite, mucousy rectal drainage with bright red blood. Negative: Vomiting Aggravating Factor(s): Nothing Alleviating Factor(s): Nothing - Additional Pertinent History Primary Care Physician: [id number] - Allergy/Home Medications Allergies/Adverse Reactions: Allergies Allergy/AdvReac Type Severity Reaction Status Date / Time bees AdvReac Intermediate Swelling Uncoded 10/05/17 02:38 Home Medications: Home Medications Aspirin EC Low Dose* [Ecotrin EC Low Dose 81 MG*] 81 mg PO DAILY 10/09/17 [ History Confirmed 10/09/17] Atorvastatin* [Lipitor 20 MG*] 20 mg PO DAILY 10/09/17 [History Confirmed ] Metoprolol Succinate XL TAB* [Toprol XL TAB*] 50 mg PO DAILY 10/09/17 [History Confirmed 10/09/17] oxyCODONE TAB* [Roxycodone TAB 5 mg*] 5 mg PO 1200,0000 10/09/17 [History Confirmed 10/09/17] PMH/Surg Hx/FS Hx/Imm Hx Previously Healthy: No Endocrine/Hematology History: Reports: Hx Diabetes - TYPE II, Hx Thyroid Disease Cardiovascular History: Reports: Hx Coronary Artery Disease - STENT 2010, Hx Hypertension, Hx Myocardial Infarction - SILENT NOT SURE WHEN, Hx Pacemaker/ICD , Hx Valvular Heart Disease - AORTIC VALVE DISORDER, Other Cardiovascular Problems/Disorders - AORTIC ANEURYSM Respiratory History: Reports: Hx Sleep Apnea Denies: Hx Asthma History: Denies: Hx Renal Disease Musculoskeletal History: Reports: Hx Arthritis - LEFT KNEE JOINT Sensory History: Reports: Hx Contacts or Glasses - GLASSES Denies: Hx Hearing Aid Opthamlomology History: Reports: Hx Contacts or Glasses - GLASSES - Surgical History Surgery Procedure, Year, and Place: HERNIA 1963. 2010 [facility]. 2010 [facility]. Aortic valve replacement Hx Anesthesia Reactions: No Infectious Disease History: No Infectious Disease History: Denies: Traveled Outside the [place] in Last 30 Days - Family History Known Family History: Positive: Other - mother of suicide - Social History Lives: Alone Alcohol Use: None Hx Substance Use: No Substance Use Type: Reports: None Hx Tobacco Use: Yes Smoking Status (MU): Former Smoker Type: Cigarettes Length of Time of Smoking/Using Tobacco: NOT SURE WHEN STARTED PROB TEENAGER Have You Smoked in the Last Year: No Review of Systems Negative: Fever, Chills Positive: Other - Bloody stools, decreased appetite, rectal drainage. Negative : Vomiting Genitourinary: Negative Skin: Negative Neurological: Negative Psychological: Normal All Other Systems Reviewed And Are Negative: Yes Physical Exam - Summary Physical Exam Summary: Appearance: mildly Ill-appearing, no pain distress, Well-nourished, wearing a sanitary pad that is soaked with bright red blood after 1.5 hrs in the ED Skin: Warm, color reflects adequate perfusion, midline scar on chest from aortic valve replacement Head: Normal Head/Face inspection Eyes: Conjunctiva clear ENT: Normal inspection Neck: Supple, no nodes, no JVD. Respiratory: Lungs clear, Normal breath sounds, no respiratory distress Cardio: RRR, No murmur, pulses normal, brisk capillary refill Abdomen: soft, nontender, no masses, no bruits Bowel sounds: present Rectal exam: large amount of bright red blood coming from rectum, no hemorrhoids , no masses, no stool Musculoskeletal: Strength Intact/ ROM intact. No calf tenderness. No edema. Neuro: Alert, muscle tone normal, facial symmetry, speech normal, sensory/motor intact Psychological: Normal Triage Information Reviewed: Yes Vital Signs On Initial Exam: Initial Vitals Temp Pulse Resp BP Pulse Ox 96.5 F 98 19 107/56 98 10/09/17 08:38 10/09/17 08:38 10/09/17 08:38 10/09/17 08:38 10/09/17 08:38 Vital Signs Reviewed: Yes Diagnostics - Vital Signs Vital Signs Temp Pulse Resp BP Pulse Ox 10/09/17 08:38 96.5 F 98 19 107/56 98 - Laboratory Lab Results: Lab Results 10/09/17 10/09/17 10/09/17 Range/Units 09:40 09:40 09:40 WBC 15.3 H (3.5-10.8) 10^3/ul RBC 4.32 (4.0-5.4) 10^6/ul Hgb 12.7 L (14.0-18.0) g/dl Hct 38 L (42-52) % MCV 87 (80-94) fL MCH 29 (27-31) pg MCHC 34 (31-36) g/dl RDW 14 (10.5-15) % Plt Count 140 L (150-450) 10^3/ul MPV 8 (7.4-10.4) um3 Neut % (Auto) 80.7 (38-83) % Lymph % (Auto) 8.3 L (25-47) % [place] % (Auto) 10.6 H (0-7) % Eos % (Auto) 0.1 (0-6) % Baso % (Auto) 0.3 (0-2) % Absolute Neuts (auto) 12.4 H (1.5-7.7) 10^3/ul Absolute Lymphs (auto) 1.3 (1.0-4.8) 10^3/ul Absolute Monos (auto) 1.6 H (0-0.8) 10^3/ul Absolute Eos (auto) 0 (0-0.6) 10^3/ul Absolute Basos (auto) 0.1 (0-0.2) 10^3/ul Absolute Nucleated RBC 0 10^3/ul Nucleated RBC % 0 INR (Anticoag Therapy) 1.04 H (0.77-1.02) APTT 27.7 (26.0-36.3) seconds Sodium 132 L (133-145) mmol/L Potassium 3.2 L (3.5-5.0) mmol/L Chloride 100 L (101-111) mmol/L Carbon Dioxide 23 (22-32) mmol/L Anion Gap 9 (2-11) mmol/L BUN 50 H (6-24) mg/dL Creatinine 2.60 H (0.67-1.17) mg/dL Est GFR ( Amer) 31.2 (>60) Est GFR (Non-Af Amer) 24.2 (>60) BUN/Creatinine Ratio 19.2 (8-20) Glucose 199 H (70-100) mg/dL Calcium 9.1 (8.6-10.3) mg/dL Total Bilirubin 1.20 H (0.2-1.0) mg/dL AST 30 (13-39) U/L ALT 30 (7-52) U/L Alkaline Phosphatase 87 (34-104) U/L B-Natriuretic Peptide ( - 100) pg/mL Total Protein 6.7 (6.4-8.9) g/dL Albumin 3.4 (3.2-5.2) g/dL Globulin 3.3 (2-4) g/dL Albumin/Globulin Ratio 1.0 (1-3) Urine Color Urine Appearance Urine pH (5-9) Ur Specific [place] (1.010-1.030) Urine Protein (Negative) Urine Ketones (Negative) Urine Blood (Negative) Urine Nitrate (Negative) Urine Bilirubin (Negative) Urine Urobilinogen (Negative) Ur Leukocyte Esterase (Negative) Urine Glucose (Negative) Blood Type Antibody Screen 10/09/17 10/09/17 10/09/17 Range/Units 09:40 09:40 10:46 WBC (3.5-10.8) 10^3/ul RBC (4.0-5.4) 10^6/ul Hgb (14.0-18.0) g/dl Hct (42-52) % MCV (80-94) fL MCH (27-31) pg MCHC (31-36) g/dl RDW (10.5-15) % Plt Count (150-450) 10^3/ul MPV (7.4-10.4) um3 Neut % (Auto) (38-83) % Lymph % (Auto) (25-47) % [place] % (Auto) (0-7) % Eos % (Auto) (0-6) % Baso % (Auto) (0-2) % Absolute Neuts (auto) (1.5-7.7) 10^3/ul Absolute Lymphs (auto) (1.0-4.8) 10^3/ul Absolute Monos (auto) (0-0.8) 10^3/ul Absolute Eos (auto) (0-0.6) 10^3/ul Absolute Basos (auto) (0-0.2) 10^3/ul Absolute Nucleated RBC 10^3/ul Nucleated RBC % INR (Anticoag Therapy) (0.77-1.02) APTT (26.0-36.3) seconds Sodium (133-145) mmol/L Potassium (3.5-5.0) mmol/L Chloride (101-111) mmol/L Carbon Dioxide (22-32) mmol/L Anion Gap (2-11) mmol/L BUN (6-24) mg/dL Creatinine (0.67-1.17) mg/dL Est GFR ( Amer) (>60) Est GFR (Non-Af Amer) (>60) BUN/Creatinine Ratio (8-20) Glucose (70-100) mg/dL Calcium (8.6-10.3) mg/dL Total Bilirubin (0.2-1.0) mg/dL AST (13-39) U/L ALT (7-52) U/L Alkaline Phosphatase (34-104) U/L B-Natriuretic Peptide 162 H ( - 100) pg/mL Total Protein (6.4-8.9) g/dL Albumin (3.2-5.2) g/dL Globulin (2-4) g/dL Albumin/Globulin Ratio (1-3) Urine Color Yellow Urine Appearance Cloudy Urine pH 5.0 (5-9) Ur Specific [place] 1.013 (1.010-1.030) Urine Protein Negative (Negative) Urine Ketones Negative (Negative) Urine Blood Negative (Negative) Urine Nitrate Negative (Negative) Urine Bilirubin Negative (Negative) Urine Urobilinogen Negative (Negative) Ur Leukocyte Esterase Negative (Negative) Urine Glucose Negative (Negative) Blood Type O Positive Antibody Screen Negative Result Diagrams: 10/11/17 06:42 10/11/17 06:42 Lab Statement: Any lab studies that have been ordered have been reviewed, and results considered in the medical decision making process. - Radiology CXR Radiology Interpretation Completed By: Radiologist - NO ACTIVE CARDIOPULMONARY DISEASE IS NOTED. ED physician has reviewed this radiology report. - CT Abd/Pel CT Interpretation Completed By: ED Physician - There is diffuse circumferential wall thickening of the descending colon with some pericolonic stranding and reticulation of fat. Findings are suggestive of colitis which may be infectious or inflammatory. Additionally there is suggestion of a dilated gallbladder with gallbladder wall thickening and pericholecystic fluid suggestive of cholecystitis. There are likely gallstones in the gallbladder. ED physician has reviewed this radiology report. - EKG 09:22 Cardiac Rate: NL - 90 BPM EKG Rhythm: Sinus Rhythm ST Segment: Non-Specific Ectopy: None EKG Interpretation: Nml AV. Prolonged IVCT with RBBB. Nml QTc. Left axis -2. EKG Comparison: No Significant Change - From 10/05/17 Re-Evaluation - Re-Evaluation First Eval Re-Evaluation Time: 10:54 Change: Improved Comment: Pt having no pain. Heart rate 88 BPM. BP 124 systolic. Called daughter , who is physician, and advised her of his status. GIGU Course/Dx - Course Course Of Treatment: Medications reviewed this visit. EKG no change from . Nml CXR. CT Abd/Pel reveals, per radiologist, There is diffuse circumferential wall thickening of the descending colon with some pericolonic stranding and reticulation of fat. Findings are suggestive of colitis which may be infectious or inflammatory. Additionally there is suggestion of a dilated gallbladder with gallbladder wall thickening and pericholecystic fluid suggestive of cholecystitis. There are likely gallstones in the gallbladder. Discussed with Dr. Mead (hospitalist), who will admit patient. The patient is agreeable with this plan. - Diagnoses Differential Diagnoses - Male: Diverticulitis, Blood Dyscrasia, Ischemic Bowel, Peptic Ulcer Disease Provider Diagnoses: Bright red blood per rectum, Hypokalemia, Acute kidney injury (nontraumatic) - Physician Notifications Discussed Care Of Patient With: Aparna Mead Time Discussed With Above Provider: 10:48 Instructed by Provider To: Other - Dr. Mead (hospitalist) agrees to admit patient. She will consult Dr. Quan Discharge - Discharge Plan Condition: Good Disposition: ADMITTED TO [facility] documentation as recorded by the Russ tang Tiffany accurately reflects the service I personally performed and the decisions made by Henry dallas Barbara J, MD.
--- NOTE | 2017-10-09 23:42 | CONS ---
GASTROENTEROLOGY CONSULTATION DATE: 10/09/17 CONSULTING PHYSICIANS: Dr. Omari Gonzalez; Dr. Joe Weiss; Dr. Aparna Mead. REASON FOR CONSULT: Passage of rectal blood and mucus after an emergency room visit, 10/05/17, where he received Toradol and cyclobenzaprine. HISTORY: This 76-year-old man who, 13 months ago, had a bioprosthetic aortic valve replacement and a week later a permanent pacemaker and 3 weeks after that bilateral pulmonary emboli, made a full recovery, but for the last 3 days has been passing abnormal mucus and blood. History is complex, but he was having some pain in the right subcostal area after falling and striking that area with his hand about 10 or 12 days ago. He also wondered whether wearing a tight weightlifters belt to hold clothes in place may have been related to that. With a nagging left subcostal pain, he went to the emergency room on 10/05/17. It was felt that his pain was musculoskeletal and he received a Toradol shot and was sent home on cyclobenzaprine. The very next day, he said his stool became mucousy and blood tinged and this increased steadily over the next several days. There was no fever or severe crampy pain. Yesterday, over 24 hours, he went to the washroom about 5 times passing the mucus and blood. It has happened twice today. With this being mysterious, he came to the emergency room today. DICTATION ENDS ABRUPTLY [id number]/[facility] #: [id number]
[2017-10-10] MEDS: oxyCODONE TAB* 5 MG TAB PO SCH ×3 (00:54→23:28)
[2017-10-10] MEDS: NS 0.9% 1000 ML* 1,000 ML IV SCH ×2 (02:25→15:25)
[2017-10-10] MEDS: ZOSYN 3.375 GM Q8H per EXTENDED INFUSION IVPB SCH ×4 (05:34→14:08)
[2017-10-10] MEDS: Levothyroxine TAB* 112 MCG TAB PO SCH (05:34)
[2017-10-10 06:17] LABS: ABS Basophils 0.1 10^3/ul (0-0.2); ABS Eosinophils 0.1 10^3/ul (0-0.6); ABS Lymphocytes 1.7 10^3/ul (1.0-4.8); ABS Monocytes 1.4 10^3/ul (0-0.8); ABS Neutrophils 11.1 10^3/ul (1.5-7.7); ABS Nucleated RBC 0 10^3/ul; Eosinophil % 0.6 % (0-6); Hematocrit 37 % (42-52); Hemoglobin 12.4 g/dl (14.0-18.0); Lymphocyte % 11.7 % (25-47); Mean Corpuscular HGB Conc 34 g/dl (31-36); Mean Corpuscular Hemoglobin 29 pg (27-31); Mean Corpuscular Volume 86 fL (80-94); Mean Platelet Volume 8 um3 (7.4-10.4); Nucleated Red Blood Cells % 0; Platelet Count 135 10^3/ul (150-450); Red Cell Distribution Width 14 % (10.5-15); White Blood Count 14.4 10^3/ul (3.5-10.8)
[2017-10-10 06:28] LABS: EGFR Non-African American 51.2 (>60)
[2017-10-10] MEDS ORDERED: Atorvastatin* 20 MG TAB PO SCH (09:00)
[2017-10-10] MEDS: Pantoprazole IV* 40 MG IV SCH ×2 (09:31→22:31)
[2017-10-10] MEDS ORDERED: fentaNYL* 50 MCG/ML 2 ML VIAL (100 MCG VIAL) ONE (10:18)
[2017-10-10] MEDS ORDERED: Midazolam* 1 MG/ML 10 ML VIAL (10 MG) ONE (10:18)
[2017-10-10] MEDS: Metoprolol Succinate XL TAB* 50 MG PO SCH (11:50)
--- NOTE | 2017-10-10 17:08 | PN ---
Subjective Date of Service: 10/10/17 Interval History: Seen this AM No additional diarrhea or bloody BMs mild abdominal pain with pressure otherwise none no N/V Objective Active Medications: Atorvastatin Calcium (Lipitor*) 20 mg PO DAILY [facility] Sodium Chloride (Ns 0.9% 1000 Ml*) 1,000 mls @ 150 mls/hr IV PER RATE [facility] Last Admin: 10/09/17 10:52 Dose: 150 mls/hr Sodium Chloride (Ns 0.9% 1000 Ml*) 1,000 mls @ 100 mls/hr IV PER RATE [facility] Last Admin: 10/10/17 15:25 Dose: 100 mls/hr Piperacillin Sod/Tazobactam (Sod 3.375 gm/ Sodium Chloride) 100 mls @ 25 mls/ hr IVPB Q8H [facility] Last Admin: 10/10/17 14:08 Dose: 25 mls/hr Levothyroxine Sodium (Synthroid Tab*) 112 mcg PO 0600 [facility] Last Admin: 10/10/17 05:34 Dose: 112 mcg Metoprolol Succinate (Toprol Xl Tab*) 50 mg PO DAILY [facility] Last Admin: 10/10/17 11:50 Dose: 50 mg Morphine Sulfate (Morphine Inj (Syringe)*) 4 mg IV Q4H PRN PRN Reason: PAIN Ondansetron HCl (Zofran Inj*) 4 mg IV Q6H PRN PRN Reason: NAUSEA Oxycodone HCl (Roxycodone Tab*) 5 mg PO 1200,0000 [facility] Last Admin: 10/10/17 11:50 Dose: 5 mg Pantoprazole Sodium (Protonix Iv*) 40 mg IV Q12H [facility] Last Admin: 10/10/17 09:31 Dose: 40 mg Pharmacy Consult (Zosyn Per Pharmacy*) 1 note FOLLOW UP .ZOSYN PER PHARMACY [facility] Vital Signs - 8 hr 10/10/17 10/10/17 10/10/17 11:28 11:50 14:18 Temperature 97.4 F Pulse Rate 79 Respiratory 16 16 16 Rate Blood Pressure 113/63 (mmHg) O2 Sat by Pulse 96 Oximetry 10/10/17 16:59 Temperature 98.3 F Pulse Rate 70 Respiratory 17 Rate Blood Pressure 124/61 (mmHg) O2 Sat by Pulse 98 Oximetry Oxygen Devices in Use Now: None Appearance: NAD Eyes: No Scleral Icterus, PERRLA Ears/Nose/Mouth/Throat: Clear Oropharnyx, Mucous Membranes Moist Neck: NL Appearance and Movements; NL JVP, Trachea Midline Respiratory: Symmetrical Chest Expansion and Respiratory Effort, Clear to Auscultation Cardiovascular: RRR, - - 2/6 VINICIO Abdominal: - - LLQ TTP Extremities: No Edema Skin: No Rash or Ulcers Neurological: Alert and Oriented x 3 Result Diagrams: 10/10/17 05:55 10/10/17 05:55 Additional Lab and Data: Lab Results 10/09/17 10/09/17 10/09/17 Range/Units 09:40 09:40 09:40 WBC 15.3 H (3.5-10.8) 10^3/ul RBC 4.32 (4.0-5.4) 10^6/ul Hgb 12.7 L (14.0-18.0) g/dl Hct 38 L (42-52) % MCV 87 (80-94) fL MCH 29 (27-31) pg MCHC 34 (31-36) g/dl RDW 14 (10.5-15) % Plt Count 140 L (150-450) 10^3/ul MPV 8 (7.4-10.4) um3 Neut % (Auto) 80.7 (38-83) % Lymph % (Auto) 8.3 L (25-47) % [place] % (Auto) 10.6 H (0-7) % Eos % (Auto) 0.1 (0-6) % Baso % (Auto) 0.3 (0-2) % Absolute Neuts (auto) 12.4 H (1.5-7.7) 10^3/ul Absolute Lymphs (auto) 1.3 (1.0-4.8) 10^3/ul Absolute Monos (auto) 1.6 H (0-0.8) 10^3/ul Absolute Eos (auto) 0 (0-0.6) 10^3/ul Absolute Basos (auto) 0.1 (0-0.2) 10^3/ul Absolute Nucleated RBC 0 10^3/ul Nucleated RBC % 0 INR (Anticoag Therapy) 1.04 H (0.77-1.02) APTT 27.7 (26.0-36.3) seconds Sodium 132 L (133-145) mmol/L Potassium 3.2 L (3.5-5.0) mmol/L Chloride 100 L (101-111) mmol/L Carbon Dioxide 23 (22-32) mmol/L Anion Gap 9 (2-11) mmol/L BUN 50 H (6-24) mg/dL Creatinine 2.60 H (0.67-1.17) mg/dL Est GFR ( Amer) 31.2 (>60) Est GFR (Non-Af Amer) 24.2 (>60) BUN/Creatinine Ratio 19.2 (8-20) Glucose 199 H (70-100) mg/dL Calcium 9.1 (8.6-10.3) mg/dL Total Bilirubin 1.20 H (0.2-1.0) mg/dL AST 30 (13-39) U/L ALT 30 (7-52) U/L Alkaline Phosphatase 87 (34-104) U/L B-Natriuretic Peptide ( - 100) pg/mL Total Protein 6.7 (6.4-8.9) g/dL Albumin 3.4 (3.2-5.2) g/dL Globulin 3.3 (2-4) g/dL Albumin/Globulin Ratio 1.0 (1-3) Urine Color Urine Appearance Urine pH (5-9) Ur Specific [place] (1.010-1.030) Urine Protein (Negative) Urine Ketones (Negative) Urine Blood (Negative) Urine Nitrate (Negative) Urine Bilirubin (Negative) Urine Urobilinogen (Negative) Ur Leukocyte Esterase (Negative) Urine Glucose (Negative) Blood Type Antibody Screen 10/09/17 10/09/17 10/09/17 Range/Units 09:40 09:40 10:46 WBC (3.5-10.8) 10^3/ul RBC (4.0-5.4) 10^6/ul Hgb (14.0-18.0) g/dl Hct (42-52) % MCV (80-94) fL MCH (27-31) pg MCHC (31-36) g/dl RDW (10.5-15) % Plt Count (150-450) 10^3/ul MPV (7.4-10.4) um3 Neut % (Auto) (38-83) % Lymph % (Auto) (25-47) % [place] % (Auto) (0-7) % Eos % (Auto) (0-6) % Baso % (Auto) (0-2) % Absolute Neuts (auto) (1.5-7.7) 10^3/ul Absolute Lymphs (auto) (1.0-4.8) 10^3/ul Absolute Monos (auto) (0-0.8) 10^3/ul Absolute Eos (auto) (0-0.6) 10^3/ul Absolute Basos (auto) (0-0.2) 10^3/ul Absolute Nucleated RBC 10^3/ul Nucleated RBC % INR (Anticoag Therapy) (0.77-1.02) APTT (26.0-36.3) seconds Sodium (133-145) mmol/L Potassium (3.5-5.0) mmol/L Chloride (101-111) mmol/L Carbon Dioxide (22-32) mmol/L Anion Gap (2-11) mmol/L BUN (6-24) mg/dL Creatinine (0.67-1.17) mg/dL Est GFR ( Amer) (>60) Est GFR (Non-Af Amer) (>60) BUN/Creatinine Ratio (8-20) Glucose (70-100) mg/dL Calcium (8.6-10.3) mg/dL Total Bilirubin (0.2-1.0) mg/dL AST (13-39) U/L ALT (7-52) U/L Alkaline Phosphatase (34-104) U/L B-Natriuretic Peptide 162 H ( - 100) pg/mL Total Protein (6.4-8.9) g/dL Albumin (3.2-5.2) g/dL Globulin (2-4) g/dL Albumin/Globulin Ratio (1-3) Urine Color Yellow Urine Appearance Cloudy Urine pH 5.0 (5-9) Ur Specific [place] 1.013 (1.010-1.030) Urine Protein Negative (Negative) Urine Ketones Negative (Negative) Urine Blood Negative (Negative) Urine Nitrate Negative (Negative) Urine Bilirubin Negative (Negative) Urine Urobilinogen Negative (Negative) Ur Leukocyte Esterase Negative (Negative) Urine Glucose Negative (Negative) Blood Type O Positive Antibody Screen Negative Assess/Plan/Problems-Billing Assessment: 76 yo M h/o CABG, AVR, transient HB s/p PPM, PEs 2017, DM2 p/w blood and mucous in stool found with e/o ischemic colitis
--- NOTE | 2017-10-10 17:55 | PN ---
Progress Note - Progress Note Date of Service: 10/10/17 Note: Continuation of todays progress note: A/P: 76 yo M h/o CABG, AVR, transient HB s/p PPM, Ps 2017, DM2 found with blood and mucous in stools with e/o ischemic colitis on flex-sigmoidoscopy Ischemic colitis - s/p flex sig. Blood has abated. Advance diet. Check H/H in morning. Stop abx. JUAN - suspect pre renal. Improved with fluids. Continue light fluids overnight. DM2 - on no meds. CAD - restart ASA. c/w metoprolol DVT ppx - SCDs
[2017-10-10] MEDS: Atorvastatin* 20 MG TAB PO SCH (19:41)
[2017-10-11] MEDS: NS 0.9% 1000 ML* 1,000 ML IV SCH (02:32)
[2017-10-11] MEDS: Levothyroxine TAB* 112 MCG TAB PO SCH (05:54)
[2017-10-11 07:20] LABS: ABS Basophils 0 10^3/ul (0-0.2); ABS Eosinophils 0.2 10^3/ul (0-0.6); ABS Lymphocytes 1.9 10^3/ul (1.0-4.8); ABS Neutrophils 8.2 10^3/ul (1.5-7.7); ABS Nucleated RBC 0 10^3/ul; Eosinophil % 1.6 % (0-6); Hematocrit 36 % (42-52); Lymphocyte % 16.7 % (25-47); Mean Corpuscular HGB Conc 34 g/dl (31-36); Mean Corpuscular Hemoglobin 29 pg (27-31); Mean Corpuscular Volume 86 fL (80-94); Mean Platelet Volume 8 um3 (7.4-10.4); Nucleated Red Blood Cells % 0; Platelet Count 162 10^3/ul (150-450); Red Blood Count 4.12 10^6/ul (4.0-5.4); Red Cell Distribution Width 14 % (10.5-15); White Blood Count 11.2 10^3/ul (3.5-10.8)
[2017-10-11 07:32] VITALS: BP 136/65
[2017-10-11 07:37] LABS: EGFR Non-African American 67.6 (>60)
[2017-10-11] MEDS: Atorvastatin* 20 MG TAB PO SCH (09:17)
[2017-10-11] MEDS: Metoprolol Succinate XL TAB* 50 MG PO SCH (09:17)
[2017-10-11] MEDS: Pantoprazole IV* 40 MG IV SCH (09:17)
--- NOTE | 2017-10-11 12:18 | PRO ---
DATE: 10/10/17 - ROOM #[id number] REFERRING PHYSICIAN: Omari Gonzalez; Jhon Ravi.* PROCEDURE: Upper gastrointestinal endoscopy and CLOtest; flexible sigmoidoscopy and biopsy of proximal sigmoid edema and exudate. INDICATION: This 76-year-old man complained of upper abdominal pain in several locations over the last 5 to 6 days. It seemed to be in the right upper quadrant, then in the left upper quadrant and then on exam yesterday it was more in left lower quadrant. He presented apparently dehydrated with creatinine 2.4, BUN 50, well above his base line. CT scan showed thickening of the descending colon suggestive of ischemic colitis. He had been passing bloody almost jelly like stools. He is known to have an infrarenal aneurysm and the measurements from yesterday' s CT scan are pending. ENDOSCOPIST: Dr. Quan MEDICATIONS: Midazolam 5.5, fentanyl 87.5. FINDINGS: He is a healthy-appearing older man in no distress at this time. His abdomen is soft and there is some minimal left periumbilical to left lower quadrant tenderness. Perianal inspection is unremarkable. EGD: Larynx - narrow, symmetric. Esophagus - easily entered and the mucosa is normal in the upper and mid esophagus. At 8 o'clock orientation, there is a diverticulum at about 34 to 35 cm, smooth, relatively shallow with a wide opening and empty. There were no erosions and no scars. The EG junction is at 40, normal snug and there is no hiatal hernia. Stomach - Generally normal mucosa in the cardia, fundus, body and antrum. The rugal folds are a little bit attenuated with a question of atrophy. There was no blood and no erosions. Duodenum - the pylorus, bulb and second through fourth portions were normal. During withdrawal, a biopsy was taken mid gastric body for CLOtest (patient on Zosysn last 18 hours). FLEXIBLE SIGMOIDOSCOPY: Initial views show a coating of dark ochre stool in the rectum and rectosigmoid. Lavage reveals a totally normal mucosa in the rectum. There is a transition to some erythema and granularity at about 25 cm and then by 30 cm exudate on the edges of the folds, typical of ischemic colitis , which becomes overt and moderately severe at about 35 to 38 cm. There is thumbprinting and a purplish-white color to the swollen folds. Five biopsies were taken from that area. IMPRESSION: 1. Small esophageal diverticulum. 2. Minimal gastric granularity - CLOtest pending Addendum: Clotest negative; biopsy chronic gastritis + ischemic colitis 3. Mild distal sigmoid diverticulosis. 4. Typical ischemic colitis in the upper sigmoid, biopsies pending. Whether the ischemic colitis is just occurring in a high risk individual or whether it reflects expansion or dissection of his aneurysm is still being worked through, although the dramatic fall in his BUN and creatinine today is generally a good sign and his lack of pain supports that. [id number]/[facility] #: [id number] [facility]
--- NOTE | 2017-10-12 03:04 | DS ---
CC: Dr. Gonzalez * DISCHARGE SUMMARY: DATE OF ADMISSION: 10/09/17 DATE OF DISCHARGE: 10/11/17 PRIMARY CARE PROVIDER: Omari Gonzalez MD PRIMARY DIAGNOSES: 1. Ischemic colitis. 2. Acute kidney injury. SECONDARY DIAGNOSES: Include: 1. Type 2 diabetes, hemoglobin A1c is 6.7 on this admission. 2. History of coronary artery disease with single-vessel coronary artery bypass graft. 3. History of aortic valve replacement. 4. Hyperlipidemia. 5. Hypothyroidism. MEDICATIONS ON DISCHARGE: Include: 1. Oxycodone 5 mg twice daily. 2. Atorvastatin 20 mg daily. 3. Glucosamine chondroitin 1 tab daily. 4. Lasix 40 mg daily. 5. Metoprolol succinate 50 mg daily. 6. Levothyroxine 112 mcg daily. 7. Aspirin 81 mg daily. 8. Metformin 500 mg daily. 9. Lisinopril 20 mg daily. Please note the addition of metformin 500 mg daily and the decrease in dose of lisinopril from 40 to 20 mg daily. Please also note the discontinuation of amlodipine 5 mg daily. The patient's blood pressures ranged in the one teens to 130s prior to discharge suspect on the reintroduction of his blood pressure medications upon followup. PERTINENT IMAGING PERFORMED DURING HOSPITAL STAY: CT abdomen and pelvis, there is diffuse circumferential wall thickening of the descending colon with some pericolonic stranding and reticulation of fat. Findings are suggestive of colitis, which may be infectious or inflammatory. Additionally, there is suggestion of dilated gallbladder with gallbladder wall thickening and pericholecystic fluid with suggestion of cholecystitis. There are likely gallstones in the gallbladder. Gallbladder ultrasound performed to follow up to CT abdomen and pelvis, impression: Cholelithiasis, gallbladder wall thickening, a sludge is noted in the gallbladder. Gallbladder wall thickening measured 6 mm and the common duct is 4 mm. PERTINENT LABORATORY DATA: Hemoglobin on presentation 12.7, hemoglobin on discharge 12.0. Creatinine on presentation 2.6, creatinine on discharge 1.07. Hemoglobin A1c 6.7. PROCEDURES PERFORMED DURING HOSPITAL STAY: EGD and flex sigmoidoscopy by Dr. Quan. HISTORY OF PRESENT ILLNESS AND HOSPITAL COURSE: This is a 76-year-old man with a past medical history as outlined in the history of present illness on the day of admission, who presented to the hospital with abdominal pain as well as bright red blood and mucus in stools for several days prior to presentation. He underwent a flex sigmoidoscopy with evidence of ischemic colitis per discussion with Dr. Quan. Formal report of EGD and flex sigmoidoscopy is still pending. Biopsies were taken and pending at the time of this discharge. His bleeding subsided during the course of the hospital stay. His last stool on the day of discharge was brown without blood or melena. He is tolerating diet, mostly eating soft foods such as eggs prior to his discharge. His hemoglobin remains largely stable, dropped to less than 1 g/dL during the course of this hospital stay and discharge value of 12.0. On presentation, his white blood cell count is 15.3. He was started on Zosyn, which was discontinued after flex sigmoidoscopy and his white blood cell count was noted to continue to decline. His T-max during the hospital stay was 100.6 on the day of presentation. There were no complications during the course of this hospital stay. FOLLOWUP INSTRUCTIONS: At followup, please: 1. Please note the discontinuation of antihypertensives and the decrease of lisinopril. Please add antihypertensives as blood pressure rebounds. 2. Metformin added at low dose to start 1 week after discharge. Please follow hemoglobin A1c and titrate medications as necessary. 3. Please follow biopsies obtained during EGD and flex sigmoidoscopy. 4. No other specific labs or vitals that need followup. Reasons to return to the hospital include, but are not limited to, recurrent or worsening symptoms including bleeding, mucus from any source including rectum, chest pain or shortness of breath, lightheadedness, loss of consciousness, near loss of consciousness, and inability to obtain or tolerate medications discussed with the patient at length. He acknowledged understanding. TIME SPENT: Greater than 60 minutes was spent on discharge of this patient of which greater than half was spent [id number] with the patient. [id number]/[facility] #: [id number] [facility]
== END 2017-10-11 12:00 | disposition home or self-care (01) | DRG 394 ==
LOC: ED 08:35 → MED 11:45
PROVIDERS: ADMIT Hospitalist; ATTEND Internal Medicine
PROC: 0DB68ZX Excision of Stomach, Via Natural or Artificial Opening Endoscopic, Diagnostic (ICD-10-PCS; principal; 2017-10-10)
PROC: 0DBN8ZX Excision of Sigmoid Colon, Via Natural or Artificial Opening Endoscopic, Diagnostic (ICD-10-PCS; 2017-10-10)
DX: K55.9 Vascular disorder of intestine, unspecified (principal); N17.9 Acute kidney failure, unspecified; I44.2 Atrioventricular block, complete; E11.9 Type 2 diabetes mellitus without complications; E78.5 Hyperlipidemia, unspecified; E03.9 Hypothyroidism, unspecified; D72.829 Elevated white blood cell count, unspecified; I45.10 Unspecified right bundle-branch block; E87.6 Hypokalemia; I25.10 Atherosclerotic heart disease of native coronary artery without angina pectoris; E86.0 Dehydration; K80.20 Calculus of gallbladder without cholecystitis without obstruction; K57.30 Diverticulosis of large intestine without perforation or abscess without bleeding; K22.5 Diverticulum of esophagus, acquired; G89.29 Other chronic pain; I71.4 Abdominal aortic aneurysm, without rupture; Z96.651 Presence of right artificial knee joint; Z95.1 Presence of aortocoronary bypass graft; Z95.2 Presence of prosthetic heart valve; Z95.0 Presence of cardiac pacemaker; Z79.891 Long term (current) use of opiate analgesic; Z79.899 Other long term (current) drug therapy; Z91.030 Bee allergy status; Z81.8 Family history of other mental and behavioral disorders; Z83.79 Family history of other diseases of the digestive system; Z87.891 Personal history of nicotine dependence; Z86.711 Personal history of pulmonary embolism
CPT/HCPCS: 36415; 71045; 74176; 76705; 80048; 80053; 81003; 82272; 83036; 83880; 84300; 84540; 85014; 85018; 85025; 85610; 85730; 86850; 86900; 86901; 87077; 88305; 88342; 93005; 99156; 99157; 99285; A9270-GY; J2250; J2543; J3010; J3480

== ENCOUNTER 2018-08-10 13:46 | Emergency (ER) | payer MEDICARE, OTHER ==
--- OUTSIDE RECORDS SUMMARY | 2018-08-10 13:53 | XMS REPORT | Continuity of Care Document ---
:1940 External Reference #:[id number] Author Name Becky Mackey Care Team Providers Name Role Phone Cullen Jordan MD Primary Care Physician Unavailable Payers Type Date Identification Numbers Payment Provider Subscriber Effective: 2008 Policy Number: [id number] Medicare Kole Suárez PayID: [id number] [address] [place] [address] Policy Number: [id number] [employer] Kole Suárez Group Number: [id number] [address] PayID: [id number] [place] [address] Advance Directives Description No Information Available Problems Date Description Provider Status Onset: 10/18/2017 Cholelithiasis without Monroe Swift Active obstruction Delmy,FACP Onset: 06/14/2008 Hypothyroidism Jose Carlos Coates M.D.,FACP Onset: 07/01/2009 Mixed hyperlipidemia Jose Carlos Coates M.D.FACP Onset: 12/31/2010 Abdominal aortic aneurysm without Monroe Swift Active rupture Delmy,FACP Note: 4 cm Onset: 02/06/2012 Coronary arteriosclerosis Joes Carlos Coates M.D.,FACP Onset: 07/29/2012 Type 2 diabetes mellitus Jose Carlos Coates M.D.,FACP Onset: 06/20/2013 Chronic ischemic heart disease Joe Weiss M.D., FACC, Active FSCAI Onset: 06/20/2013 Essential hypertension Joe Weiss M.D., JAVIER, Active FSCAI Onset: 01/24/2015 Localized, primary osteoarthritis Nithin Cuevas M.D. Active Onset: 09/11/2015 Arthroplasty of knee Marline Kim M.D. Active Onset: 03/27/2016 Localized, primary osteoarthritis Marline Kim M.D. Active of the pelvic region and thigh Onset: 04/29/2016 Pain in thoracic spine Marline Kim M.D. Active Onset: 09/07/2016 Heart valve replacement Joe Weiss M.D., JAVIER, Active FSCAI Onset: 09/07/2016 Cardiac pacemaker in situ Joe Weiss M.D., JAVIER, Active [facility]SCAI Onset: 05/03/2018 Premature beats Jess Jones M.D. Active Onset: 05/03/2018 Paroxysmal atrial fibrillation Jess Jones M.D. Active Onset: 05/03/2018 Right bundle branch block Jess Jones M.D. Active Onset: 05/03/2018 Complete atrioventricular block Jess Jones M.D. Active Onset: 05/03/2018 Arteriosclerosis of coronary Jess Jones M.D. Active artery bypass graft Onset: 06/14/2008 Impaired fasting glycaemia Monroe Swift, José Antonio Brock FACP Inactive: 07/29/2012 Onset: 06/20/2013 Hyperlipidemia Joe Weiss M.D., FACC, FSCAI Inactive Inactive: 11/09/2013 Onset: 06/14/2008 Benign essential hypertension Monroe Swift M.D.,FACP Inactive Inactive: 11/09/2013 Onset: 06/14/2008 Aortic valve disorder Monroe Swift M.D.,FACP Inactive Inactive: 03/28/2015 Onset: 03/28/2011 Aortic valve stenosis Monroe Swift M.D.,FACP Inactive Inactive: 11/04/2016 Note: mod-severe Onset: 05/06/2015 Chronic ischemic heart disease, Joe eWiss M.D., JAVIER, Inactive unspecified FSCAI Inactive: 12/27/2016 Onset: 06/24/2016 Encounter for planned Joe Weiss M.D., FACC, Inactive postprocedural wound closure FSCAI Inactive: 12/27/2016 Family History Date Family Member(s) Problem(s) Comments Father due to Cancer () - thyroid Mother due to Suicide () Siblings 2 3 originally First Brother due to Heart Disease () - VSD or ASD, was on balloon pump First Sister Arthritis, Rheumatoid Social History Type Date Description Comments Sex Unknown Marital Status Marital Status Lives With Occupation Currently Working Tobacco Use Start: Unknown End: Former Cigarette Smoker Unknown ETOH Use 11/20/2016 Denies alcohol use Recreational Drug Use Denies Drug Use Tobacco Use Start: Unknown End: Patient is a former smoker quit in 1980 Unknown Smoking Status Reviewed: 07/27/18 Patient is a former smoker quit in 1980 Exercise Type/Frequency Exercises sporadically Allergies, Adverse Reactions, Alerts Date Description Reaction Status Severity Comments 06/14/2008 Bee Stings Active 11/04/2016 Tramadol Active Medications Medication Date Status Form Strength Qnty SIG Indications Ordering Provider Viagra 03/12 Active Tablets 50mg 10tab take 1 [place] s tablet by eleno Jordan as M.D. needed Shingrix 02/09 Active Suspension 50mcg 2unit 0.5 Rec s milliliters Adalberto Swift, intramuscula M.D.,FACP r now and 2-3 months later repeat Amlodipine 10/18 Active Tablets 2.5mg 90tab take 1 s tablet by Adalberto Swift mouth every M.D.,FACP day Lisinopril 10/18 Active Tablets 20mg 90tab take 1 I10 s tablet by Adalberto Swift mouth every M.D.,FACP day Amoxicillin 04/13 Active Capsules 500mg 12cap 4 tabs 1 hr s prior to Adalberto Swift dental M.D.,FACP procedure prn Atorvastatin 12/07 Active Tablets 20mg 90tab Take 1 s Tablet By Adalberto Swift, Mouth AT M.D.,FACP Bedtime Furosemide 11/20 Active Tablets 20mg 30tab Take 1 s Tablet By Adalberto Swift Mouth Every M.D.,FACP Morning Metoprolol 11/20 Active Tablets ER 50mg 90tab Take 1 Monroe Succinate 24HR s Tablet By Adalberto Swift, Mouth Every M.D.,FACP Day Oxycodone HCL 07/18 Active Tablets 5mg 90tab Take 1 To 2 s Tablets By Adalberto Swift, Mouth Every M.D.,FACP 12 Hours as Needed For Pain Maximum Daily Dose Of 3 Per Day Synthroid 01/11 Active Tablets 112mcg 90tab take 1 s tablet by Adalberto Swift, mouth every M.D.,FACP morning Voltaren 05/03 Active Gel 1% 100un apply 4 M17.11 its grams to Adalberto Swift, affected M.DRohan,FAC area(s) two times daily as needed Glucosamine Active Capsules 1500Com 1 by mouth Unknown every day Aspirin Active Chewtabs 81mg 90uni 1 by mouth ts every day Adalberto Swift M.D.,[facility] Multivitamin Active 1 po daily Metformin HCL 10/11 Hx Tablets 500mg 1 by mouth daily - 10/18 Augmentin 07/09 Hx Tablets 875-125mg 14tab by mouth s twice a day Mildred Vance.DRohan,[facility] 10/01 Amlodipine 02/01 Hx Tablets 5mg 90tab Take 1 Monroe Bes s Tablet By Adalberto Swift, - Mouth Every M.D.,[facility] Amlodipine 12/04 Hx Tablets 2.5mg 30tab 1 by mouth Monroe Bes s every day Mildred Vance M.D.,FACP 02/01 Furosemide 11/09 Hx Tablets 40mg 30tab 1 by mouth Monroe s every day Mildred Vance M.D.,[facility] 11/20 Furosemide 10/29 Hx Tablets 20mg 30tab take 1 s tablet every Adalberto Swift, - morning M.D.,[facility] 11/09 Lisinopril 10/19 Hx Tablets 40mg 30tab Take 1/2 I10 Laura s Tablet By Jamaal, - Mouth Every [employer] Lisinopril 10/12 Hx Tablets 30mg 30tab 1 by mouth I10 s every day [place], [employer] - 10/19 Lisinopril 10/05 Hx Tablets 20mg 90tab 1 by mouth I10 s every day [place], [employer] - 10/12 [place] 09/29 Hx Tablets 5mg 1tabs take 1 tab by mouth Adalberto Swift, - (patient is M.D.,[facility] 11/20 not taking at this time) Warfarin 09/14 Hx Tablets 3mg 120ta 2 tabs daily bs or as Adalberto Swift, - directed Delmy,[facility] 12/13 Lisinopril 09/14 Hx Tablets 10mg 30tab 1 by mouth I10 s every day Adalberto Swift, - Delmy,[facility] 10/05 Cheratussin ac 09/14 Hx Syrup 100-10mg/ 236ml 10 5ML milliliters Adalberto Swift, - by mouth Delmy,[facility] 11/04 four times a day as needed Tramadol HCL 04/29 Hx Tablets 50mg 60tab four times a Z96.651 s day as Adalberto Swift, - needed M.Adalberto,[facility] 06/09 Oxycodone HCL 10/14 Hx Tablets 5mg 45tab 1-2 tab by s mouth twice [place], - a day as [employer] 03/31 needed for pain Oxycodone HCL 07/04 Hx Tablets 5mg 60tab 1 -2 tabs by Latonya /2015 s mouth every [place], - 6 hours as [employer] 07/18 needed pain Cephalexin 06/26 Hx Tablets 500mg 60tab one by mouth Z47.1 s four times a [place], - day for two [employer] Oxycodone HCL 06/07 Hx Tablets 5mg 90tab 1-2 every 4 M17.11 s hours as Julio, - needed for M.D. 09/21 pain. Warfarin 06/07 Hx Tablets 2mg 60tab 1 tablet by M17.11 Latonya Sodium s mouth daily, Shayna, - or dose per [employer] 07/03 /mind[facility] nurse service. do not start until after surgery. Valium 01/08 Hx Tablets 5mg 5tabs 1 by mouth 30 minutes Young, - before M.D. 03/28 injections. May take a second if no effect. Oxycodone HCL 01/08 Hx Capsules 5mg 80cap 1-2 tab by s mouth four Young, - times a day M.D. 07/03 as needed pain Ibuprofen 12/11 Hx Tablets 800mg 90tab by mouth s three times Young, - a day as M.D. 01/24 needed [place] 10/26 Hx Tablets 5-325mg 40tab 1-2 tabs by s mouth bid as Young, - needed for M.D. 03/28 pain /2014 Diazepam 10/25 Hx Tablets 5mg 1tabs 1 by mouth 30 min prior Young, - to procedure M.D. 12/03 Ibuprofen 03/27 Hx Tablets 600mg 60tab one time a s day as Young, - needed pain M.D. 03/27 Ibuprofen 03/27 Hx Tablets 600mg 60tab 1 by mouth s three times Young, - a day as M.D. 10/24 needed Epipen 2-Irvin 01/29 Hx Solution 0.3mg/0.3 2unit use as Monroe Auto-Inject ML s directed Adalberto Swift, - Delmy,[facility] 03/26 Synthroid 10/26 Hx Tablets 125mcg 30tab Take 1 Monroe s Tablet By Adalberto Swift, - Mouth One M.DRohan,FACP 01/11 Time Daily Simvastatin 12/16 Hx Tablets 40mg 90tab 1 by mouth s every night Stefecam, - at bedtime M.D., 12/07 [facility] Celebrex 11/28 Hx Capsules 200mg 30cap 1 po bid prn 715.16 Mildred Frankel M.D.,[facility] 11/09 Voltaren 11/28 Hx Gel 1% 100un Apply 4 715.16 its Grams To Mildred Vance M.D.,[facility] 03/26 Area Times A Day as Needed Plavix 02/04 Hx Tablets 75mg 90tab 1 po qd 693.0 Monroe Mildred Frankel M.D.,[facility] 09/02 Triamcinolone 02/04 Hx Cream 0.5% 30g qd prn 693.0 Monroe Acetonide Mildred Vance M.D.,[facility] 07/29 Sarna 02/04 Hx Lotion 0.5-0.5% 60g as needed 693.0 Monroe Mildred Vance M.D.,[facility] 07/29 Medrol Dosepak 02/04 Hx Tablets 4mg 1Pak as directed 693.0 Monroe Mildred Vance M.D.,[facility] 07/29 Lisinopril 02/04 Hx Tablets 40mg 90tab 1 tab by I10 Joe s mouth every Stefek, - day (on M.D., 09/14 hold) [facility] Simvastatin 02/04 Hx Tablets 40mg 90tab 1 po qhs 414.01 s Mildred Vance M.D.,[facility] 12/16 Furosemide 02/04 Hx Tablets 20mg 45tab 1/2 tab by 414.01 Joe s mouth every Stefek, - day M.DRohan, 10/24 [facility] Metoprolol 02/04 Hx Tablets ER 100mg 180ta 1 by mouth Joe Succinate 24HR bs twice a day Mildred Weiss M.D., 09/06 [facility] Isosorbide 02/04 Hx Tablets ER 60mg 135ta 1 1/2 tabs I25.10 Joe Mononitrate 24HR bs by mouth Isela - every day M.DRohan, 09/06 [facility] Aspirin Ec 12/[address] 81mg 90tab po qd Monroe Mildred Frankel M.D.,[facility] 06/20 Metoprolol 12/23 Hx Tablets ER 25mg 30tab 2 po qd Monroe Succinate 24HR s Mildred Vance M.D.,[facility] 02/04 Glucosamine 12/02 Hx Tablets po bid Monroe Chondroitin Adalberto Swift Advanced Mildred Brock,[facility] 02/04 Aleve 12/02 Hx Tablets 220mg bid prn Monroe Mildred Vance M.D.,[facility] 02/04 Lisinopril 12/02 Hx Tablets 20mg 60tab 1 po qd 401.1 Monroe Mildred Frankel M.D.,[facility] 02/04 Prinzide 12/23 Hx Tablets 20-12.5mg 90tab Take One 401.1 s Tablet By Adalberto Swift - Mouth Every M.D.,[facility] 12/02 Augmentin 12/18 Hx Tablets 875-125mg 20tab 1 tablet bid 078.3 Stevano s for 10 days , Mildred Keating M.D. 07/24 Prinizide Hx 12.5/20 90uni 1 po qAM Monroe / mg ts Mildred Vance M.D.,[facility] 07/24 Aspirin Hx Tablets 325mg 60tab 1/2 tabs q Stefek, / s day MD Joe - 09/14 Glucosamine Hx 1 po qd Unknown Chondroitin /0000 - 03/26 Synthroid Hx Tablets 137mcg 30tab Take One Monroe s Tablet By Adalberto Swift, - Mouth Once M.D.,[facility] 10/26 Daily /2013 Colace Hx Capsules 100mg 1 by mouth Unknown /0000 up to 3 - times a day 04/29 prn /2015 constipation Metoprolol Hx Tablets ER 25mg 1 by mouth Unknown Succinate ER /0000 24HR every day - 11/20 Furosemide 00 Hx Tablets 40mg 1 by mouth Unknown /0000 every day x7 - days 09/14 Potassium 00/00 Hx Tablets ER 20Meq 1 by mouth Unknown Chloride ER /0000 every day x7 - days 09/14 Medications Administered in Office Medication Date Status Form Strength Qnty SIG Indications Ordering Provider Depomedrol Administered Injection Marline 40MG 016 Delmy Kim Hyaluron Or Administered Injection Vanessa Derivative,Ort 015 ezequiel Marte,For RPA-C Intra-Articula r Inj Per Dose Hyaluron Or Administered Injection Nithin Derivative,Ort 015 Delmy Cuevas,For Intra-Articula r Inj Per Dose Hyaluron Or Administered Injection Nithin Derivative,Ort 015 Delmy Cuevas,For Intra-Articula r Inj Per Dose Depomedrol Administered Injection Nithin 80MG Funmi Cuevas M.D. Immunizations CPT Code Status Date Vaccine Lot # [id number] Given 07/27/2018 Influenza Virus Vaccine, Quadrivalent, Split, [id number] Preservative Free 58052 Given 06/30/2018 Zoster (Shingles) Vaccine (HZV), Recombinant, Subunit, Adjuvanted 01394 Given 02/11/2018 Zoster (Shingles) Vaccine (HZV), Recombinant, Subunit, Adjuvanted 89453 Given 06/16/2017 Influenza Virus Vaccine, Quadrivalent, Split, [id number] Preservative Free 59501 Given 04/29/2016 Influenza Virus Vaccine, Quadrivalent, Split, [id number] Preservative Free 82006 Given 07/03/2015 Influenza Virus Vaccine, Quadrivalent, Split, [id number] Preservative Free 06481 Given 03/28/2015 Pneumococcal Conjugate Vaccine 13 Valent For [id number] Intramuscular Use Q2037 Given 07/29/2012 Fluvirin Im 3Yrs And Older [id number] 27071 Given 07/29/2012 Zoster (Zostavax) [id number] 72618 Given 12/18/2009 Tetanus And Diptheria (Td) For Adult Use [id number] Preservative Free 30046 Given 07/01/2009 Pneumonia Vaccine [id number] Vital Signs Date Vital Result Comment 07/27/2018 11:40am Height 69.5 inches 5'9.50" Weight 221.00 lb w/boots Heart Rate 77 /min BP Systolic Sitting 140 mmHg BP Diastolic Sitting 80 mmHg BP Systolic Recheck 160 mmHg BP Diastolic Recheck 95 mmHg Body Temperature 97.3 F O2 % BldC Oximetry 95 % BMI (Body Mass Index) 32.2 kg/m2 05/03/2018 10:56am Height 69.5 inches 5'9.50" Weight 220.00 lb with shoes Heart Rate 62 /min BP Systolic 132 mmHg large cuff Rue (later in exam) BP Diastolic 80 mmHg large cuff Rue (later in exam) BP Systolic Sitting 160 mmHg Lue lg cuff BP Diastolic Sitting 80 mmHg Lue lg cuff BP Systolic Standing 156 mmHg Lue lg cuff BP Diastolic Standing 84 mmHg Lue lg cuff Respiratory Rate 16 /min BMI (Body Mass Index) 32.0 kg/m2 Ejection Fraction 45-50% date 01/07/17 ECHO 02/09/2018 1:05pm Height 69.5 inches 5'9.50" Weight 214.00 lb Heart Rate 69 /min BP Systolic Sitting 125 mmHg BP Diastolic Sitting 85 mmHg Body Temperature 98.0 F O2 % BldC Oximetry 98 % BMI (Body Mass Index) 31.1 kg/m2 10/18/2017 11:53am Weight 209.00 lb Heart Rate 77 /min BP Systolic Sitting 152 mmHg BP Diastolic Sitting 74 mmHg BP Systolic Recheck 168 mmHg BP Diastolic Recheck 85 mmHg Body Temperature 97.6 F O2 % BldC Oximetry 96 % 10/01/2017 9:57am Weight 216.00 lb Heart Rate 78 /min BP Systolic Sitting 148 mmHg BP Diastolic Sitting 88 mmHg Body Temperature 97.6 F O2 % BldC Oximetry 95 % 06/16/2017 10:58am Weight 210.00 lb Heart Rate 72 /min BP Systolic Sitting 152 mmHg BP Diastolic Sitting 79 mmHg Body Temperature 97.9 F O2 % BldC Oximetry 98 % 04/20/2017 10:59am Height 70 inches 5'10" Weight 204.00 lb Heart Rate 64 /min BP Systolic Sitting 128 mmHg Rue reg cuff BP Diastolic Sitting 82 mmHg Rue reg cuff BP Systolic Standing 126 mmHg Rue BP Diastolic Standing 82 mmHg Rue Respiratory Rate 14 /min BMI (Body Mass Index) 29.3 kg/m2 Ejection Fraction 45-50% 01/06/17 02/22/2017 11:02am Weight 204.00 lb Heart Rate 79 /min BP Systolic Sitting 152 mmHg BP Diastolic Sitting 74 mmHg BP Systolic Recheck 135 mmHg BP Diastolic Recheck 70 mmHg Body Temperature 98.0 F O2 % BldC Oximetry 98 % 01/27/2017 10:46am Height 70 inches 5'10" Weight 204.00 lb w/ shoes Heart Rate 66 /min reg BP Systolic Sitting 150 mmHg Lue, reg cuff BP Diastolic Sitting 80 mmHg Lue, reg cuff BP Systolic Standing 140 mmHg Lue BP Diastolic Standing 80 mmHg Lue Respiratory Rate 16 /min BMI (Body Mass Index) 29.3 kg/m2 Ejection Fraction 45-50% as of 01/06/17 echo 12/16/2016 11:34am Height 70 inches 5'10" Weight 203.00 lb w/ shoes Heart Rate 80 /min reg BP Systolic Sitting 110 mmHg Lue. reg cuff BP Diastolic Sitting 66 mmHg Lue. reg cuff Respiratory Rate 16 /min BMI (Body Mass Index) 29.1 kg/m2 Ejection Fraction 40% as of 09/08/16 echo 11/20/2016 9:06am Height 70 inches 5'10" Weight 202.25 lb Heart Rate 76 /min BP Systolic Sitting 160 mmHg BP Diastolic Sitting 80 mmHg Body Temperature 97.8 F O2 % BldC Oximetry 98 % BMI (Body Mass Index) 29.0 kg/m2 11/11/2016 10:25am Height 70.5 inches 5'10.50" Weight 200.00 lb with shoes Heart Rate 70 /min BP Systolic Sitting 150 mmHg Rue reg cuff BP Diastolic Sitting 82 mmHg Rue reg cuff BP Systolic Standing 144 mmHg Rue reg cuff BP Diastolic Standing 86 mmHg Rue reg cuff Respiratory Rate 16 /min BMI (Body Mass Index) 28.3 kg/m2 11/04/2016 2:08pm Height 70.5 inches 5'10.50" Weight 202.50 lb Heart Rate 90 /min BP Systolic Sitting 180 mmHg BP Diastolic Sitting 88 mmHg Body Temperature 98.3 F O2 % BldC Oximetry 98 % BMI (Body Mass Index) 28.6 kg/m2 09/23/2016 11:04am Height 70.5 inches 5'10.50" Weight 203.50 lb w/boots Heart Rate 80 /min 80 LA standing BP Systolic 140 mmHg Ra reg cuff BP Diastolic 62 mmHg Ra reg cuff BP Systolic Sitting 130 mmHg Ra reg cuff BP Diastolic Sitting 74 mmHg Ra reg cuff BP Systolic Standing 124 mmHg Ra reg cuff BP Diastolic Standing 74 mmHg Ra reg cuff BMI (Body Mass Index) 28.8 kg/m2 Ejection Fraction 40% Echo 09/08/16 09/14/2016 11:30am Weight 206.25 lb Heart Rate 86 /min BP Systolic Sitting 156 mmHg BP Diastolic Sitting 91 mmHg BP Systolic Recheck 152 mmHg BP Diastolic Recheck 80 mmHg Body Temperature 97.0 F O2 % BldC Oximetry 93 % 09/07/2016 11:11am Height 70.5 inches 5'10.50" Weight 204.00 lb Heart Rate 100 /min 128 BP Systolic Sitting 130 mmHg right arm, reg cuff BP Diastolic Sitting 72 mmHg right arm, reg cuff BP Systolic Standing 126 mmHg right arm, reg cuff BP Diastolic Standing 68 mmHg right arm, reg cuff Respiratory Rate 28 /min BMI (Body Mass Index) 28.9 kg/m2 Ejection Fraction 40% 09/01/16 06/24/2016 2:31pm Height 70.5 inches 5'10.50" Weight 214.00 lb Heart Rate 58 /min 64 BP Systolic Sitting 150 mmHg right arm, reg cuff BP Diastolic Sitting 82 mmHg right arm, reg cuff BP Systolic Standing 146 mmHg right arm, reg cuff BP Diastolic Standing 78 mmHg right arm, reg cuff Respiratory Rate 20 /min BMI (Body Mass Index) 30.3 kg/m2 Ejection Fraction 40-45% 05/27/16 06/10/2016 2:59pm Height 70.5 inches 5'10.50" Weight 217.00 lb Heart Rate 66 /min 70 BP Systolic Sitting 156 mmHg left arm, reg cuff BP Diastolic Sitting 88 mmHg left arm, reg cuff BP Systolic Standing 150 mmHg left arm, reg cuff BP Diastolic Standing 84 mmHg left arm, reg cuff Respiratory Rate 16 /min BMI (Body Mass Index) 30.7 kg/m2 Ejection Fraction 40-45% 05/27/16 05/15/2016 2:35pm Height 70.5 inches 5'10.50" Weight 206.00 lb Respiratory Rate 16 /min Pain Level 8 BMI (Body Mass Index) 29.1 kg/m2 04/29/2016 11:30am Heart Rate 60 /min Respiratory Rate 16 /min Pain Level 4 04/29/2016 8:40am Height 70.5 inches 5'10.50" Weight 206.00 lb Heart Rate 58 /min BP Systolic Sitting 154 mmHg BP Diastolic Sitting 72 mmHg Body Temperature 97.5 F O2 % BldC Oximetry 98 % BMI (Body Mass Index) 29.1 kg/m2 04/06/2016 9:36am Height 70.5 inches 5'10.50" Weight 203.00 lb Pain Level 4 BMI (Body Mass Index) 28.7 kg/m2 04/01/2016 11:09am Height 70.5 inches 5'10.50" Weight 203.00 lb Heart Rate 58 /min 60 BP Systolic Sitting 146 mmHg right arm, reg cuff BP Diastolic Sitting 80 mmHg right arm, reg cuff BP Systolic Standing 142 mmHg right arm, reg cuff BP Diastolic Standing 74 mmHg right arm, reg cuff Respiratory Rate 20 /min BMI (Body Mass Index) 28.7 kg/m2 Ejection Fraction 55-60% 01/03/15 03/27/2016 11:27am Height 70.5 inches 5'10.50" Weight 182.00 lb BMI (Body Mass Index) 25.7 kg/m2 09/11/2015 11:01am Height 70.5 inches 5'10.50" Weight 182.00 lb Pain Level 3 BMI (Body Mass Index) 25.7 kg/m2 07/31/2015 11:21am Height 70.5 inches 5'10.50" Weight 182.00 lb Pain Level 3 BMI (Body Mass Index) 25.7 kg/m2 07/15/2015 1:14pm Height 70.5 inches 5'10.50" Weight 182.00 lb Pain Level 2 BMI (Body Mass Index) 25.7 kg/m2 07/03/2015 2:27pm Height 70.5 inches 5'10.50" Weight 188.50 lb Heart Rate 53 /min BP Systolic Sitting 116 mmHg BP Diastolic Sitting 63 mmHg Body Temperature 97.5 F O2 % BldC Oximetry 98 % BMI (Body Mass Index) 26.7 kg/m2 07/01/2015 1:18pm Height 70.5 inches 5'10.50" Weight 182.00 lb Body Temperature 97.1 F BMI (Body Mass Index) 25.7 kg/m2 06/26/2015 1:37pm Height 70.5 inches 5'10.50" Weight 182.00 lb Body Temperature 97.3 F BMI (Body Mass Index) 25.7 kg/m2 06/07/2015 11:07am Height 70.5 inches 5'10.50" Weight 182.00 lb Heart Rate 48 /min BP Systolic 136 mmHg BP Diastolic 62 mmHg BMI (Body Mass Index) 25.7 kg/m2 05/10/2015 1:31pm Height 70.5 inches 5'10.50" Weight 191.00 lb Heart Rate 60 /min BP Systolic Sitting 124 mmHg BP Diastolic Sitting 63 mmHg Body Temperature 98.7 F O2 % BldC Oximetry 98 % BMI (Body Mass Index) 27.0 kg/m2 05/06/2015 1:32pm Height 70.5 inches 5'10.50" Weight 194.00 lb Heart Rate 60 /min 62 BP Systolic Sitting 128 mmHg right arm, reg cuff BP Diastolic Sitting 64 mmHg right arm, reg cuff BP Systolic Standing 120 mmHg right arm, reg cuff BP Diastolic Standing 62 mmHg right arm, reg cuff Respiratory Rate 20 /min BMI (Body Mass Index) 27.4 kg/m2 Ejection Fraction 55-60% 01/03/15 03/28/2015 2:58pm Height 70.5 inches 5'10.50" Weight 188.00 lb Heart Rate 66 /min BP Systolic Sitting 132 mmHg BP Diastolic Sitting 72 mmHg Body Temperature 97.9 F O2 % BldC Oximetry 96 % BMI (Body Mass Index) 26.6 kg/m2 03/21/2015 11:04am Height 70.5 inches 5'10.50" Weight 181.00 lb Heart Rate 55 /min BP Systolic 149 mmHg BP Diastolic 90 mmHg BMI (Body Mass Index) 25.6 kg/m2 02/07/2015 11:15am Height 71 inches 5'11" Weight 195.00 lb Pain Level 5 BMI (Body Mass Index) 27.2 kg/m2 01/31/2015 11:11am Height 71 inches 5'11" Weight 195.00 lb Pain Level 9 BMI (Body Mass Index) 27.2 kg/m2 01/25/2015 3:12pm Heart Rate 62 /min 66 BP Systolic 119 mmHg Home BP cuff, L arm BP Diastolic 67 mmHg Home BP cuff, L arm BP Systolic Sitting 118 mmHg left arm, reg cuff BP Diastolic Sitting 64 mmHg left arm, reg cuff BP Systolic Standing 96 mmHg left arm, reg cuff BP Diastolic Standing 62 mmHg left arm, reg cuff Respiratory Rate 16 /min 01/24/2015 11:00am Height 71 inches 5'11" Weight 195.00 lb Pain Level 5 BMI (Body Mass Index) 27.2 kg/m2 01/03/2015 12:45pm Height 71 inches 5'11" Weight 195.00 lb at home Heart Rate 56 /min 58 sit and stand gr BP Systolic Sitting 170 mmHg Ra reg cuff BP Diastolic Sitting 84 mmHg Ra reg cuff BP Systolic Standing 166 mmHg Ra reg cuff BP Diastolic Standing 84 mmHg Ra reg cuff Respiratory Rate 16 /min BMI (Body Mass Index) 27.2 kg/m2 12/11/2014 1:22pm Height 71 inches 5'11" Weight 207.00 lb Pain Level 4 BMI (Body Mass Index) 28.9 kg/m2 12/04/2014 2:46pm Height 71 inches 5'11" Weight 194.00 lb Heart Rate 60 /min 64 BP Systolic Sitting 150 mmHg right arm, reg cuff BP Diastolic Sitting 84 mmHg right arm, reg cuff BP Systolic Standing 128 mmHg right arm, reg cuff BP Diastolic Standing 78 mmHg right arm, reg cuff Respiratory Rate 16 /min BMI (Body Mass Index) 27.1 kg/m2 10/30/2014 1:19pm Height 71 inches 5'11" Weight 207.00 lb Pain Level 10 BMI (Body Mass Index) 28.9 kg/m2 03/27/2014 1:32pm Height 71 inches 5'11" Weight 207.00 lb Heart Rate 57 /min BP Systolic 128 mmHg BP Diastolic 64 mmHg BMI (Body Mass Index) 28.9 kg/m2 03/16/2014 2:52pm Height 70.5 inches 5'10.50" Weight 219.00 lb with steel toed boots on Heart Rate 60 /min 70 BP Systolic Sitting 120 mmHg left arm, reg cuff BP Diastolic Sitting 70 mmHg left arm, reg cuff BP Systolic Standing 108 mmHg left arm, reg cuff BP Diastolic Standing 68 mmHg left arm, reg cuff Respiratory Rate 20 /min BMI (Body Mass Index) 31.0 kg/m2 11/09/2013 3:40pm Height 70.5 inches 5'10.50" Weight 211.00 lb Heart Rate 60 /min BP Systolic Sitting 126 mmHg BP Diastolic Sitting 62 mmHg BMI (Body Mass Index) 29.8 kg/m2 06/20/2013 2:06pm Height 70.5 inches 5'10.50" Weight 218.00 lb down 9 lbs Heart Rate 62 /min BP Systolic Sitting 138 mmHg LA large cuff BP Diastolic Sitting 72 mmHg LA large cuff BP Systolic Standing 132 mmHg LA BP Diastolic Standing 76 mmHg LA Respiratory Rate 16 /min BMI (Body Mass Index) 30.8 kg/m2 11/28/2012 10:02am Height 70.5 inches 5'10.50" Weight 227.00 lb Heart Rate 67 /min BP Systolic Sitting 162 mmHg irregular BP Diastolic Sitting 84 mmHg irregular O2 % BldC Oximetry 96 % BMI (Body Mass Index) 32.1 kg/m2 07/29/2012 9:57am Height 71 inches 5'11" Weight 241.00 lb Heart Rate 64 /min BP Systolic Sitting 140 mmHg BP Diastolic Sitting 82 mmHg BMI (Body Mass Index) 33.6 kg/m2 02/05/2012 12:03pm Height 70.75 inches 5'10.75" Weight 243.50 lb Heart Rate 68 /min BP Systolic Sitting 160 mmHg BP Diastolic Sitting 80 mmHg BMI (Body Mass Index) 34.2 kg/m2 12/02/2010 2:05pm Weight 250.00 lb Heart Rate 78 /min BP Systolic Sitting 154 mmHg BP Diastolic Sitting 58 mmHg 12/18/2009 9:00am Weight 257.00 lb Heart Rate 68 /min BP Systolic Sitting 150 mmHg BP Diastolic Sitting 74 mmHg Body Temperature 98.4 F 07/01/2009 10:43am Height 72 inches 6'0", with boots on Weight 251.00 lb Heart Rate 80 /min BP Systolic Sitting 144 mmHg BP Diastolic Sitting 80 mmHg BMI (Body Mass Index) 34.0 kg/m2 06/14/2008 2:06pm Height 70 inches 5'10" Weight 240.00 lb Heart Rate 84 /min BP Systolic Sitting 142 mmHg BP Diastolic Sitting 78 mmHg BMI (Body Mass Index) 34.4 kg/m2 Results Test Date Facility Test Result H/L Range Note Laboratory test 07/27/2018 [facility] Hemoglobin A1c 6.7 5-7 finding Laboratory test 05/23/2018 [facility] TSH (Thyroid 4.96 N 0.34 -5.[address] Stim Horm) mcIU/[place] [address] [phone] Laboratory test 02/10/2018 [facility] Lipase 13 U/L N 11.0- 82.[address] [place], [place] [id number] [phone] Comp Metabolic 02/10/2018 [facility] Sodium 139 mmol/L N 135- [address] [place] [address] [phone] Potassium 4.5 mmol/L N 3.5-5.0 Chloride 106 mmol/L N 101-111 Co2 Carbon Dioxide 27 mmol/L N 22-32 Anion Gap 6 mmol/L N 2-11 Glucose 129 mg/dL High 70-100 Blood Urea Nitrogen 10 mg/dL N 6-24 Creatinine 1.09 mg/dL N 0.67-1.17 BUN/Creatinine Ratio 9.2 N 8-20 Calcium 9.4 mg/dL N 8.6-10.3 Total Protein 7.0 g/dL N 6.4-8.9 Albumin 4.2 g/dL N 3.2-5.2 Globulin 2.8 g/dL N 2-4 Albumin/Globulin Ratio 1.5 N 1-3 Total Bilirubin 0.60 mg/dL N 0.2-1.0 Alkaline Phosphatase 98 U/L N 34-104 Alt 19 U/L N 7-52 Ast 20 U/L N 13-39 Egfr Non- 65.9 >60 Egfr 79.8 >60 1 Urine Microalbumin 11/25/2017 [facility] Ur Microalbumin < 15.[address] (mg/L) mg/[place] [address] [phone] Urine Creatinine 148.27 mg/dL Urine Microalbumin/Creatinine TNP ug/mg <31 3 Thyroid 11/24/2017 [facility] Thyroid Stim 5.5 mIU/L Abnormal 0.3-4.[address] [place] [address] [phone] Free T4 1.1 ng/dL 0.9 - 1.7 5 Thyroperoxidase Antibody 6.8 IU/mL <9.0 6 Comp Metabolic Panel 11/24/2017 [facility] Sodium 137 mmol/L Low 139-[address] [place] [address] [phone] Potassium 4.0 mmol/L N 3.5-5.0 Chloride 103 mmol/L N 101-111 Co2 Carbon Dioxide 26 mmol/L N 22-32 Anion Gap 8 mmol/L N 2-11 Glucose 132 mg/dL High 70-100 Blood Urea Nitrogen 15 mg/dL N 6-24 Creatinine 1.08 mg/dL N 0.67-1.17 BUN/Creatinine Ratio 13.9 N 8-20 Calcium 9.3 mg/dL N 8.6-10.3 Total Protein 6.8 g/dL N 6.4-8.9 Albumin 4.0 g/dL N 3.2-5.2 Globulin 2.8 g/dL N 2-4 Albumin/Globulin Ratio 1.4 N 1-3 Total Bilirubin 1.30 mg/dL High 0.2-1.0 Alkaline Phosphatase 127 U/L High 34-104 Alt 68 U/L High 7-52 Ast 30 U/L N 13-39 Egfr Non- 66.7 >60 Egfr 85.7 >60 8 Lipid Profile 11/24/2017 [facility] Triglycerides 90 mg/dL 9 (Trig/Chol/HDL) [address] [place], [place] [id number] [phone] Cholesterol 93 mg/dL 10 HDL Cholesterol 42.2 mg/dL 11 LDL Cholesterol 33 mg/dL 12 Laboratory 11/24/2017 [facility] Hemoglobin A1c 6.9 % High 4.0 -5.[address] (Glyco HGB) [place], [place] [address] [phone] Laboratory 10/10/2017 [facility] Surgical SEE RESULT [address] Interface Order BELOW [place], [place] [address] [phone] Laboratory 10/09/2017 [facility] B-Type 162 pg/mL High [address] [place] [address] Peptide BNP [phone] Stool Occult 10/09/2017 [facility] Stool Occult SEE RESULT [address] Blood, Diag BELOW [place], [place] [address] [phone] Type & Screen 10/09/2017 [facility] Patient [place] [address] [phone] Antibody Screen NEGATIVE Laboratory test 10/09/2017 [facility] Partial 27.7 N 26.0- 36.[address] [place] [address] PTT [phone] Inr/Protime 10/09/2017 [facility] Inr 1.04 High 0.77-1.[address] [place] [address] [phone] CBC Auto Diff 10/09/2017 [facility] White Blood 15.3 High 3.5- 10.[address] Count 10^3/[place] [address] [phone] Red Blood Count 4.32 10^6/uL N 4.0-5.4 Hemoglobin 12.7 g/dL Low 14.0-18.0 Hematocrit 38 % Low 42-52 Mean Corpuscular Volume 87 fL N 80-94 Mean Corpuscular Hemoglobin 29 pg N 27-31 Mean Corpuscular HGB Conc 34 g/dL N 31-36 Red Cell Distribution Width 14 % N 10.5-15 Platelet Count 140 10^3/uL Low 150-450 Mean Platelet Volume 8 um3 N 7.4-10.4 Abs Neutrophils 12.4 10^3/uL High 1.5-7.7 Abs Lymphocytes 1.3 10^3/uL N 1.0-4.8 Abs Monocytes 1.6 10^3/uL High 0-0.8 Abs Eosinophils 0 10^3/uL N 0-0.6 Abs Basophils 0.1 10^3/uL N 0-0.2 Abs Nucleated RBC 0 10^3/uL Granulocyte % 80.7 % N 38-83 Lymphocyte % 8.3 % Low 25-47 Monocyte % 10.6 % High 0-7 Eosinophil % 0.1 % N 0-6 Basophil % 0.3 % N 0-2 Nucleated Red Blood Cells % 0 Comp Metabolic Panel 10/09/2017 [facility] Sodium 132 mmol/L Low 133-145 [place] [address] [phone] Potassium 3.2 mmol/L Low 3.5-5.0 Chloride 100 mmol/L Low 101-111 Co2 Carbon Dioxide 23 mmol/L N 22-32 Anion Gap 9 mmol/L N 2-11 Glucose 199 mg/dL High 70-100 Blood Urea Nitrogen 50 mg/dL High 6-24 Creatinine 2.60 mg/dL High 0.67-1.17 BUN/Creatinine Ratio 19.2 N 8-20 Calcium 9.1 mg/dL N 8.6-10.3 Total Protein 6.7 g/dL N 6.4-8.9 Albumin 3.4 g/dL N 3.2-5.2 Globulin 3.3 g/dL N 2-4 Albumin/Globulin Ratio 1.0 N 1-3 Total Bilirubin 1.20 mg/dL High 0.2-1.0 Alkaline Phosphatase 87 U/L N 34-104 Alt 30 U/L N 7-52 Ast 30 U/L N 13-39 Egfr Non- 24.2 >60 Egfr 31.2 >60 17 Urinalysis Profile 10/09/2017 [facility] Urine Color Yellow [address] [place] [address] [phone] Urine Appearance Cloudy Urine Specific [place] 1.013 N 1.010-1.030 Urine pH 5.0 N 5-9 Urine Urobilinogen Negative Negative Urine Ketones Negative Negative Urine Protein Negative Negative Urine Leukocytes Negative Negative Urine Blood Negative Negative Urine Nitrite Negative Negative Urine Bilirubin Negative Negative Urine Glucose Negative Negative Laboratory test 06/16/2017 [facility] Hemoglobin A1c 6.8 5-7 finding Laboratory test 01/22/2017 [facility] TSH (Thyroid Stim 1.93 N 0.34-5.60 18 finding [facility] Horm) mcIU/[place] [address] [phone] Free T4 (Free Thyroxine) 0.88 ng/dL N 0.61-1.12 19 Magnesium 2.1 mg/dL N 1.9-2.7 20 Basic Metabolic Panel 12/05/2016 [facility] Sodium 137 mmol/L N 133-[address] [place] [phone] [phone] Potassium 4.1 mmol/L N 3.5-5.0 Chloride 104 mmol/L N 101-111 Co2 Carbon Dioxide 28 mmol/L N 22-32 Anion Gap 5 mmol/L N 2-11 Glucose 112 mg/dL High 70-100 Blood Urea Nitrogen 13 mg/dL N 6-24 Creatinine 0.86 mg/dL N 0.67-1.17 BUN/Creatinine Ratio 15.1 N 8-20 Calcium 9.5 mg/dL N 8.6-10.3 Egfr Non- 86.9 N >60 Egfr 111.8 N >60 21 Laboratory test 12/05/2016 [facility] Rheumatoid Factor <15 IU/ mL N <15 22 finding [facility] [place] [address] [phone] Uric Acid 5.6 mg/dL N 4.4-7.6 Erythrocyte Sed Rate 20 mm/Hr N 0-40 Hemoglobin A1c (Glyco HGB) 6.4 % High Less than 6.0 23 Protime W/ Inr 11/20/2016 [facility] Prothrombin Time 31.0 Inr 2.5 Protime W/ Inr 11/09/2016 [facility] Prothrombin Time 33.3 Inr 2.7 Laboratory test 10/28/2016 [facility] TSH (Thyroid 0.42 mcIU/mL N 0.34-5.60 [address] Stim Horm) [place] [address] [phone] CBC Auto Diff 10/28/2016 [facility] White Blood 7.6 10^3/uL N 3.5-10.[address] [place] [address] [phone] Red Blood Count 4.93 10^6/uL N 4.0-5.4 Hemoglobin 13.3 g/dL Low 14.0-18.0 Hematocrit 41 % Low 42-52 Mean Corpuscular Volume 84 fL N 80-94 Mean Corpuscular Hemoglobin 27 pg N 27-31 Mean Corpuscular HGB Conc 32 g/dL N 31-36 Red Cell Distribution Width 16 % High 10.5-15 Platelet Count 200 10^3/uL N 150-450 Mean Platelet Volume 8 um3 N 7.4-10.4 Abs Neutrophils 4.6 10^3/uL N 1.5-7.7 Abs Lymphocytes 2.2 10^3/uL N 1.0-4.8 Abs Monocytes 0.6 10^3/uL N 0-0.8 Abs Eosinophils 0.1 10^3/uL N 0-0.6 Abs Basophils 0.1 10^3/uL N 0-0.2 Abs Nucleated RBC 0 10^3/uL N Granulocyte % 60.2 % N 38-83 Lymphocyte % 29.6 % N 25-47 Monocyte % 7.3 % N 1-9 Eosinophil % 1.2 % N 0-6 Basophil % 1.7 % N 0-2 Nucleated Red Blood Cells % 0 N Lipid Profile 10/28/2016 [facility] Triglycerides 88 mg/dL N 25 (Trig/Chol/HDL) [address] [place] [address] [phone] Cholesterol 115 mg/dL N 26 HDL Cholesterol 42.8 mg/dL N 27 LDL Cholesterol 55 mg/dL N 28 Comp Metabolic Panel 10/28/2016 [facility] Sodium 138 mmol/L N 133-[address] [place] [address] [phone] Potassium 4.4 mmol/L N 3.5-5.0 Chloride 105 mmol/L N 101-111 Co2 Carbon Dioxide 30 mmol/L N 22-32 Anion Gap 3 mmol/L N 2-11 Glucose 117 mg/dL High 70-100 Blood Urea Nitrogen 11 mg/dL N 6-24 Creatinine 0.79 mg/dL N 0.67-1.17 BUN/Creatinine Ratio 13.9 N 8-20 Calcium 10.2 mg/dL N 8.6-10.3 Total Protein 7.5 g/dL N 6.4-8.9 Albumin 4.3 g/dL N 3.2-5.2 Globulin 3.2 g/dL N 2-4 Albumin/Globulin Ratio 1.3 N 1-3 Total Bilirubin 0.70 mg/dL N 0.2-1.0 Alkaline Phosphatase 65 U/L N 34-104 Alt 12 U/L N 7-52 Ast 17 U/L N 13-39 Egfr Non- 96.1 N >60 Egfr 123.6 N >60 29 Protime W/ Inr 10/26/2016 [facility] Prothrombin Time 23.3 Inr 1.9 Protime W/ Inr 10/19/2016 [facility] Prothrombin Time 16.5 Inr 1.4 Protime W/ Inr 10/12/2016 [facility] Inr 1.5 Protime W/ Inr 10/02/2016 [facility] Inr 1.5 Protime W/ Inr 09/22/2016 [facility] Inr 2.4 Protime W/ Inr 09/15/2016 [facility] Inr 2.5 Urinalysis Profile 09/07/2016 [facility] Urine Color Gaby N [address] [place] [address] [phone] Urine Appearance Cloudy N Urine Specific [place] 1.020 N 1.010-1.030 Urine pH 5.0 N 5-9 Urine Urobilinogen Negative N Negative Urine Ketones Negative N Negative Urine Protein Negative N Negative Urine Leukocytes Negative N Negative Urine Blood Negative N Negative Urine Nitrite Negative N Negative Urine Bilirubin Negative N Negative Urine Glucose Negative N Negative Laboratory test 09/07/2016 [facility] Procalcitonin 0.3 ng/mL N <0.6 [address] [place] [address] [phone] Rapid Influenza 09/07/2016 [facility] Influenza A NEGATIVE N Negative 31 A & B Molecular [address] [place] [address] [phone] Influenza B Molecular NEGATIVE N Negative Laboratory test 09/07/2016 [facility] Rapid Influenza SEE RESULT [address] [place] [address] [phone] Comp Metabolic 09/07/2016 [facility] Sodium 134 mmol/L N 133- [address] 5 [place] [address] [phone] Potassium 4.7 mmol/L N 3.5-5.0 Chloride 102 mmol/L N 101-111 Co2 Carbon Dioxide 24 mmol/L N 22-32 Anion Gap 8 mmol/L N 2-11 Glucose 166 mg/dL High 70-100 Blood Urea Nitrogen 25 mg/dL High 6-24 Creatinine 1.34 mg/dL High 0.67-1.17 BUN/Creatinine Ratio 18.7 N 8-20 Calcium 9.5 mg/dL N 8.6-10.3 Total Protein 7.8 g/dL N 6.4-8.9 Albumin 4.0 g/dL N 3.2-5.2 Globulin 3.8 g/dL N 2-4 Albumin/Globulin Ratio 1.1 N 1-3 Total Bilirubin 1.50 mg/dL High 0.2-1.0 Alkaline Phosphatase 70 U/L N 34-104 Alt 29 U/L N 7-52 Ast 27 U/L N 13-39 Egfr Non- 52.3 N >60 Egfr 67.2 N >60 33 Laboratory test 09/07/2016 [facility] C Reactive 246.88 mg/L High < 5.00 [address] [place] [address] [phone] Troponin-I (TnI) 0.18 ng/mL High <0.04 35 Lactic Acid 1.8 mmol/L N 0.5-2.0 36 B-Type Natriuretic Peptide BNP 299 pg/mL High 37 CBC Auto 09/07/2016 [facility] White Blood 18.0 10^3/uL High 3.5-10.[address] [place] [address] [phone] Red Blood Count 4.39 10^6/uL N 4.0-5.4 Hemoglobin 12.4 g/dL Low 14.0-18.0 Hematocrit 38 % Low 42-52 Mean Corpuscular Volume 86 fL N 80-94 Mean Corpuscular Hemoglobin 28 pg N 27-31 Mean Corpuscular HGB Conc 33 g/dL N 31-36 Red Cell Distribution Width 15 % N 10.5-15 Platelet Count 254 10^3/uL N 150-450 Mean Platelet Volume 8 um3 N 7.4-10.4 Abs Neutrophils 16.5 10^3/uL High 1.5-7.7 Abs Lymphocytes 0.5 10^3/uL Low 1.0-4.8 Abs Monocytes 0.8 10^3/uL N 0-0.8 Abs Eosinophils 0 10^3/uL N 0-0.6 Abs Basophils 0.1 10^3/uL N 0-0.2 Abs Nucleated RBC 0 10^3/uL N Granulocyte % 92.1 % High 38-83 Lymphocyte % 2.6 % Low 25-47 Monocyte % 4.6 % N 1-9 Eosinophil % 0 % N 0-6 Basophil % 0.7 % N 0-2 Nucleated Red Blood Cells % 0 N Laboratory test 09/07/2016 [facility] Partial 31.7 seconds N 26.0-36.[address] [place] [address] PTT [phone] Blood Culture SEE RESULT BELOW 38 CBC Auto 09/07/2016 [facility] White Blood 20.5 10^3/uL High 3.5-10.[address] [place] [address] [phone] Red Blood Count 4.46 10^6/uL N 4.0-5.4 Hemoglobin 12.6 g/dL Low 14.0-18.0 Hematocrit 39 % Low 42-52 Mean Corpuscular Volume 87 fL N 80-94 Mean Corpuscular Hemoglobin 28 pg N 27-31 Mean Corpuscular HGB Conc 32 g/dL N 31-36 Red Cell Distribution Width 15 % N 10.5-15 Platelet Count 257 10^3/uL N 150-450 Mean Platelet Volume 8 um3 N 7.4-10.4 Abs Neutrophils 19.0 10^3/uL High 1.5-7.7 Abs Lymphocytes 0.6 10^3/uL Low 1.0-4.8 Abs Monocytes 0.8 10^3/uL N 0-0.8 Abs Eosinophils 0 10^3/uL N 0-0.6 Abs Basophils 0.1 10^3/uL N 0-0.2 Abs Nucleated RBC 0 10^3/uL N Granulocyte % 92.5 % High 38-83 Lymphocyte % 3.1 % Low 25-47 Monocyte % 4.1 % N 1-9 Eosinophil % 0 % N 0-6 Basophil % 0.3 % N 0-2 Nucleated Red Blood Cells % 0 N Comp Metabolic Panel 09/07/2016 [facility] Sodium 135 mmol/L N 133-[address] [place] [address] [phone] Chloride 101 mmol/L N 101-111 Co2 Carbon Dioxide 25 mmol/L N 22-32 Glucose 201 mg/dL High 70-100 Blood Urea Nitrogen 24 mg/dL N 6-24 Creatinine 1.35 mg/dL High 0.67-1.17 BUN/Creatinine Ratio 17.8 N 8-20 Calcium 9.1 mg/dL N 8.6-10.3 Total Protein 7.2 g/dL N 6.4-8.9 Albumin 3.9 g/dL N 3.2-5.2 Globulin 3.3 g/dL N 2-4 Albumin/Globulin Ratio 1.2 N 1-3 Total Bilirubin 1.40 mg/dL High 0.2-1.0 Alkaline Phosphatase 68 U/L N 34-104 Alt 32 U/L N 7-52 Egfr Non- 51.8 N >60 Egfr 66.6 N >60 39 Potassium 4.7 mmol/L N 3.5-5.0 40 Anion Gap 9 mmol/L N 2-11 Ast 35 U/L N 13-39 41 Laboratory test 09/07/2016 [facility] B-Type 228 pg/mL High [address] [place] [address] Peptide BNP [phone] D Dimer Quantitative > 1050 ng/mL High Less Than 230 43 Basic Metabolic Panel 06/12/2016 [facility] Sodium 138 mmol/L N 133-[address] [place] [address] [phone] Potassium 4.4 mmol/L N 3.5-5.0 Chloride 105 mmol/L N 101-111 Co2 Carbon Dioxide 29 mmol/L N 22-32 Anion Gap 4 mmol/L N 2-11 Glucose 94 mg/dL N 70-100 Blood Urea Nitrogen 10 mg/dL N 6-24 Creatinine 0.96 mg/dL N 0.67-1.17 BUN/Creatinine Ratio 10.4 N 8-20 Calcium 9.5 mg/dL N 8.6-10.3 Egfr Non- 76.8 N >60 Egfr 98.7 N >60 44 Inr/Protime 06/12/2016 [facility] Inr 0.96 N 0.89-1.[address] [place] [address] [phone] Cath Panel 06/12/2016 [facility] Partial 29.7 seconds N 26.0- 36.[address] [place] [place] [address] PTT [phone] CBC Auto Diff 06/12/2016 [facility] White Blood 8.1 10^3/uL N 3.5-10.[address] [place] [address] [phone] Red Blood Count 4.94 10^6/uL N 4.0-5.4 Hemoglobin 14.3 g/dL N 14.0-18.0 Hematocrit 43 % N 42-52 Mean Corpuscular Volume 88 fL N 80-94 Mean Corpuscular Hemoglobin 29 pg N 27-31 Mean Corpuscular HGB Conc 33 g/dL N 31-36 Red Cell Distribution Width 15 % N 10.5-15 Platelet Count 191 10^3/uL N 150-450 Mean Platelet Volume 8 um3 N 7.4-10.4 Abs Neutrophils 4.4 10^3/uL N 1.5-7.7 Abs Lymphocytes 2.8 10^3/uL N 1.0-4.8 Abs Monocytes 0.6 10^3/uL N 0-0.8 Abs Eosinophils 0.2 10^3/uL N 0-0.6 Abs Basophils 0 10^3/uL N 0-0.2 Abs Nucleated RBC 0.01 10^3/uL N Granulocyte % 54.9 % N 38-83 Lymphocyte % 34.8 % N 25-47 Monocyte % 7.0 % N 1-9 Eosinophil % 3.0 % N 0-6 Basophil % 0.3 % N 0-2 Nucleated Red Blood Cells % 0.1 N Laboratory test 05/25/2016 [facility] TSH (Thyroid 3.78 N 0.34 -5.[address] Stim Horm) mcIU/[place] [address] [phone] Urine 05/25/2016 [facility] Urine 67.75 mg/dL N Microalbumin [address] [place] [address] [phone] Ur Microalbumin (mg/L) < 15.0 mg/L N Urine Microalbumin/Creatinine TNP ug/mg N <31 45 Laboratory test 05/25/2016 [facility] Testosterone 285.71 N 240-[address] Total ng/[place] [address] [phone] Hemoglobin A1c (Glyco HGB) 6.3 % High Less than 6.0 46 FSH And LH 05/25/2016 [facility] FSH (Follicle Stim 12.1 mIU/mL N 1-[address] Hormone) [place] [address] [phone] LH (Lutenizing Hormone) 5.0 ?IU/mL N 2-12 Basic Metabolic Panel 05/25/2016 [facility] Sodium 138 mmol/L N 133-[address] [place] [address] [phone] Potassium 4.6 mmol/L N 3.5-5.0 Chloride 105 mmol/L N 101-111 Co2 Carbon Dioxide 29 mmol/L N 22-32 Anion Gap 4 mmol/L N 2-11 Glucose 112 mg/dL High 70-100 Blood Urea Nitrogen 13 mg/dL N 6-24 Creatinine 0.92 mg/dL N 0.67-1.17 BUN/Creatinine Ratio 14.1 N 8-20 Calcium 9.5 mg/dL N 8.6-10.3 Egfr Non- 80.6 N >60 Egfr 103.7 N >60 47 Lipid Profile 03/31/2016 [facility] Triglycerides 79 mg/dL N 48 (Trig/Chol/HDL) [address] [place] [address] [phone] Cholesterol 125 mg/dL N 49 HDL Cholesterol 51.6 mg/dL N 50 LDL Cholesterol 58 mg/dL N 51 Laboratory test finding 03/31/2016 [facility] Alt (SGPT) 13 U/L N 7-52 52 [address] [place] [address] [phone] Ast (Sgot) 18 U/L N 13-39 53 Laboratory test 07/03/2015 [facility] Hemoglobin A1c 5.8 5-7 finding CBC No Diff 06/07/2015 [facility] White Blood Count 7.6 N 4.8- 10.[address] 10^3/[place] [address] [phone] Red Blood Count 4.56 10^6/uL N 4.0-5.4 Hemoglobin 14.1 g/dL N 14.0-18.0 Hematocrit 42 % N 42-52 Mean Corpuscular Volume 92 fL N 80-94 Mean Corpuscular Hemoglobin 31 pg N 27-31 Mean Corpuscular HGB Conc 34 g/dL N 31-36 Red Cell Distribution Width 15 % N 10.5-15 Platelet Count 188 10^3/uL N 150-450 Mean Platelet Volume 8 um3 N 7.4-10.4 Urinalysis Profile 06/07/2015 [facility] Urine Color Yellow N [address] [place] [address] [phone] Urine Appearance Clear N Urine Specific [place] 1.015 N 1.010-1.030 Urine pH 5.0 N 5-9 Urine Urobilinogen Negative N Negative Urine Ketones Negative N Negative Urine Protein Negative N Negative Urine Leukocytes Negative N Negative Urine Blood Negative N Negative Urine Nitrite Negative N Negative Urine Bilirubin Negative N Negative Urine Glucose Negative N Negative Comp Metabolic Panel 06/07/2015 [facility] Sodium 137 mmol/L N 133-145 [address] [place] [address] [phone] Potassium 4.3 mmol/L N 3.5-5.0 Chloride 103 mmol/L N 101-111 Co2 Carbon Dioxide 28 mmol/L N 22-32 Anion Gap 6 mmol/L N 2-11 Glucose 101 mg/dL High 70-100 Blood Urea Nitrogen 12 mg/dL N 6-24 Creatinine 0.93 mg/dL N 0.67-1.17 BUN/Creatinine Ratio 12.9 N 8-20 Calcium 9.7 mg/dL N 8.6-10.3 Total Protein 6.5 g/dL N 6.4-8.9 Albumin 4.4 g/dL N 3.2-5.2 Globulin 2.1 g/dL N 2-4 Albumin/Globulin Ratio 2.1 N 1-3 Total Bilirubin 0.70 mg/dL N 0.2-1.0 Alkaline Phosphatase 52 U/L N 34-104 Alt 12 U/L N 7-52 Ast 16 U/L N 13-39 Egfr Non- 79.9 N >60 Egfr 102.7 N >60 55 Inr/Protime 06/07/2015 [facility] Inr 0.98 N 0.78-1.[address] [place] [address] [phone] Laboratory test 06/07/2015 [facility] Partial 32.9 seconds N 26.0-36.3 [address] [place] [address] PTT [phone] Type & Screen 06/07/2015 [facility] Patient O Positive [address] [place] [address] [phone] Antibody Screen NEGATIVE N Laboratory test 06/07/2015 [facility] Urine Culture And SEE RESULT [address] [address] [phone] Laboratory test 05/03/2015 [facility] TSH (Thyroid Stim 3.20 ?IU /mL N 0.34- finding [address] Horm) 5.60 [place], [place] [id number] [phone] Free T4 (Free Thyroxine) 0.90 ng/mL N 0.61-1.12 Urine Microalbumin 05/03/2015 [facility] Ur Microalbumin 12.0 mg /L N Random [address] (mg/L) [place] [address] [phone] Urine Creatinine 137.34 mg/dL N Urine Microalbumin/Creatinine 8.7 ug/mg N <31 Laboratory test 01/01/2015 Hemoglobin A1c (Glyco 6.2 % High Less than 6.0 58 finding HGB) Lipid Profile 01/01/2015 Triglycerides 82 mg/dL N 59 (Trig/Chol/HDL) Cholesterol 125 mg/dL N 60 HDL Cholesterol 42.3 mg/dL N 61 LDL Cholesterol 66 mg/dL N 62 Basic Metabolic Panel 01/01/2015 Sodium 138 mmol/L N 133-145 Potassium 4.0 mmol/L N 3.5-5.0 Chloride 106 mmol/L N 101-111 Co2 Carbon Dioxide 28 mmol/L N 22-32 Anion Gap 4 mmol/L N 2-11 Glucose 102 mg/dL High 70-100 Blood Urea Nitrogen 16 mg/dL N 6-24 Creatinine 0.78 mg/dL N 0.67-1.17 BUN/Creatinine Ratio 20.5 High 8-20 Calcium 9.2 mg/dL N 8.6-10.3 Egfr Non- 97.8 N >60 Egfr 125.8 N >60 63 Laboratory test 01/01/2015 TSH (Thyroid Stim 0.19 ?IU/mL Low 0.34-5.60 finding Horm) Laboratory test 01/01/2014 [facility] TSH (Thyroid 0.41 IU/mL N 0.34-5.[address] Stimulating Horm) [place] [address] [phone] Free T4 0.93 ng/mL N 0.61-1.12 Comp Metabolic Panel 09/27/2013 Sodium 139 mmol/L 133-145 Potassium 5.0 mmol/L 3.7-5.6 Chloride 106 mmol/L 101-111 Co2 Carbon Dioxide 29 mmol/L 22-32 Anion Gap 4 mmol/L 2-11 Blood Urea Nitrogen 17 mg/dL 6-24 Creatinine 0.95 mg/dL 0.67-1.17 BUN/Creatinine Ratio 17.9 8-20 Calcium 9.8 mg/dL 8.6-10.3 Total Protein 6.6 g/dL 6.4-8.9 Albumin 4.4 g/dL 3.2-5.2 Globulin 2.2 g/dL 2-4 Albumin/Globulin Ratio 2.0 1-3 Total Bilirubin 0.80 mg/dL 0.2-1.0 Alkaline Phosphatase 63 U/L 34-104 Alt 16 U/L 7-52 Ast 17 U/L 13-39 Egfr Non- 78.4 >60 Egfr 100.8 >60 64 Lipid Profile (Trig/Chol/HDL) 09/27/2013 Triglycerides 81 mg/dL 65 Cholesterol 115 mg/dL 66 HDL Cholesterol 38.6 mg/dL 67 LDL Cholesterol 60 mg/dL 68 Laboratory test finding 09/27/2013 Hemoglobin A1c 6.5 % High Less than 6.0 69 Glucose 112 mg/dL High 70-100 TSH (Thyroid Stimulating Horm) 0.11 IU/mL Low 0.34-5.60 Urine Microalbumin 11/25/2012 [facility] Ur Microalbumin 9.0 mg/ L [address] (Mg/L) [place] [address] [phone] Urine Creatinine 93.4 mg/dL Urine Microalbumin/Creatinine 9.6 ug/mg Less Than 31 Laboratory test 11/25/2012 [facility] Hemoglobin A1c 7.1 % High Less than [address] [place] [address] [phone] Laboratory test 07/19/2012 [facility] Creatine Kinase 80 U/L 0-[address] [place] [address] [phone] TSH (Thyroid Stimulating Horm) 0.88 MIU/ML 0.34-5.60 Hemoglobin A1c 7.6 % High Less than 6.0 72 CMP Panel 07/19/2012 [facility] Sodium 140 mmol/L 133-[address] [place] [address] [phone] Potassium 4.4 mmol/L 3.5-5.0 Chloride 109 mmol/L 101-111 Co2 Carbon Dioxide 26.0 mmol/L 22-32 Anion Gap 5.0 mmol/L 2-11 Glucose 135 mg/dL High 70-100 Blood Urea Nitrogen 14 mg/dL 6-24 Creatinine 1.00 mg/dL 0.50-1.40 BUN/Creatinine Ratio 14.0 8-20 Calcium 9.6 mg/dL 8.1-9.9 Total Protein 6.2 g/dL 6.2-8.1 Albumin 4.2 g/dL 3.2-5.2 Globulin 2.0 g/dL 2-4 Albumin/Globulin Ratio 2.1 1-3 Total Bilirubin 1.0 mg/dL 0.4-1.5 Alkaline Phosphatase 68 U/L 30-110 Alt 23 U/L 14-54 Ast 23 U/L 12-42 Egfr Non- 74.1 >60 Egfr 95.3 >60 73 Lipid Panel 07/19/2012 [facility] Triglycerides 122 mg/dL 40- [address] [place] [address] [phone] Cholesterol 140 mg/dL Less than 200 HDL Cholesterol 34 mg/dL Low 40-60 74 Cholesterol/HDL Ratio 4.1 Average 1-4.44 LDL Cholesterol 81.6 mg/dL Less Than 100 75 Liver Function 08/26/2011 [facility] Total Protein 6.1 GM/DL Low 6.2-8.1 Panel [address] [place] [address] [phone] Albumin 4.0 GM/DL 3.2-5.2 Globulin 2.1 GM/DL 2-4 Albumin/Globulin Ratio 1.9 1-3 Bilirubin Total 0.7 mg/dL 0.4-1.5 76 Bilirubin Direct 0.1 mg/dL 0.1-0.5 Indirect Bilirubin 0.6 mg/dL 0.3-1.0 77 Alkaline Phosphatase 85 U/L 39-117 Alt (SGPT) 19 U/L 17-63 Ast (Sgot) 22 U/L 12-42 Lipid Profile 08/26/2011 [facility] Triglyceride 281 mg/dL High 40-200 (Trig/Chol/HDL) [address] [place] [address] [phone] Cholesterol 137 mg/dL Less Than 200 78 High Density Lipoprotein 36 mg/dL Low 40-60 79 Cholesterol/HDL Ratio 3.81 AVERAGE 1-4.97 Low Density Lipoprotein 45 mg/dL Less Than 100 80 Basic Metabolic Panel 08/26/2011 [facility] Sodium 140 mmol/L 135-145 [address] [place] [address] [phone] Potassium 4.2 mmol/L 3.5-5.0 Chloride 106 mmol/L 101-111 Co2 (Carbon Dioxide) 27.0 mmol/L 22-32 Anion Gap 7.0 mmol/L 2-11 81 Glucose 123 mg/dL High 70-100 BUN 13 mg/dL 6-24 Creatinine 1.1 mg/dL 0.50-1.40 One Over Creatinine 0.90 BUN/Creatinine Ratio 11.8 8-20 Calcium 9.4 mg/dL 8.1-9.9 eGFR Non- 66.6 > 60 eGFR 85.6 > 60 82 Basic Metabolic Panel 03/13/2011 [facility] Sodium 137 mmol/L 135-[address] [place] [address] [phone] Potassium 4.5 mmol/L 3.5-5.0 Chloride 105 mmol/L 101-111 Co2 (Carbon Dioxide) 28.0 mmol/L 22-32 Anion Gap 4.0 mmol/L 2-11 83 Glucose 164 mg/dL High 70-100 BUN 9 mg/dL 6-24 Creatinine 0.80 mg/dL 0.50-1.40 One Over Creatinine 1.20 BUN/Creatinine Ratio 11.3 8-20 Calcium 9.2 mg/dL 8.1-9.9 eGFR Non- 96.1 > 60 eGFR 123.6 > 60 84 MRSA/Vre Screen 01/22/2011 [facility] MRSA/Vre [facility] [address] [place] [address] [phone] CBC No Diff 01/16/2011 [facility] White Blood 6.9 CUMM 4.8- 10. [address] Count 8 [place] [address] [phone] Red Cell Count 4.69 CUMM 4.6-6.2 Hemoglobin 14.1 g/dL 14.0-18.0 Hematocrit 42 % 42-52 Mean Corpuscular Volume 89 um3 80-94 Mean Corpuscular Hemoglob 30 pg 27-31 Mean Corpuscular HGB Cone 34 g/dL 32-36 Redcell Distribution WDTH 13 % 10.5-15 Platelet Count 227 CUMM 150-450 Mean Platelet Volume 7.8 um3 7.4-10.4 Basic Metabolic Panel 01/16/2011 [facility] Sodium 139 mmol/L 135-[address] [place] [address] [phone] Potassium 3.9 mmol/L 3.5-5.0 Chloride 108 mmol/L 101-111 Co2 (Carbon Dioxide) 26.0 mmol/L 22-32 Anion Gap 5.0 mmol/L 2-11 86 Glucose 123 mg/dL High 70-100 BUN 9 mg/dL 6-24 Creatinine 0.90 mg/dL 0.50-1.40 One Over Creatinine 1.10 BUN/Creatinine Ratio 10.0 8-20 Calcium 9.3 mg/dL 8.1-9.9 eGFR Non- 83.9 > 60 eGFR 107.9 > 60 87 Protime 01/16/2011 [facility] Inr 0.96 0.82-1.17 88 [address] [place] [address] [phone] Protime 11.3 SEC 10.2-14.8 89 Laboratory test 01/16/2011 [facility] PTT (Aptt) 29.6 25.15- 38.53 finding [address] [place] [address] [phone] CBC No Diff 12/30/2010 [facility] White Blood 7.2 CUMM 4.8- 10.[address] [place] [address] [phone] Red Cell Count 4.78 CUMM 4.6-6.2 Hemoglobin 14.5 g/dL 14.0-18.0 Hematocrit 43 % 42-52 Mean Corpuscular Volume 90 um3 80-94 Mean Corpuscular Hemoglob 30 pg 27-31 Mean Corpuscular HGB Cone 34 g/dL 32-36 Redcell Distribution WDTH 14 % 10.5-15 Platelet Count 216 CUMM 150-450 Mean Platelet Volume 8.4 um3 7.4-10.4 Basic Metabolic Panel 12/30/2010 [facility] Sodium 141 mmol/L 135-145 [address] [place] [address] [phone] Potassium 4.2 mmol/L 3.5-5.0 Chloride 107 mmol/L 101-111 Co2 (Carbon Dioxide) 29.0 mmol/L 22-32 Anion Gap 5.0 mmol/L 2-11 90 Glucose 116 mg/dL High 70-100 BUN 13 mg/dL 6-24 Creatinine 1.00 mg/dL 0.50-1.40 One Over Creatinine 1.00 BUN/Creatinine Ratio 13.0 8-20 Calcium 9.3 mg/dL 8.1-9.9 eGFR Non- 74.3 > 60 eGFR 95.6 > 60 91 Laboratory test 12/30/2010 [facility] PTT (Aptt) 30.0 25.15- 38.53 finding [address] [place] [address] [phone] Protime 12/30/2010 [facility] Inr 1.00 0.82-1.17 92 [address] [place] [address] [phone] Protime 11.8 SEC 10.2-14.8 93 Lipid Panel - 11/17/2010 [facility] CPK (Creatine 80 U/L 0- [address] [place]) [place] [address] [phone] CMP Panel 11/17/2010 [facility] Sodium 139 mmol/L 135-145 [place] [address] [phone] Potassium 4.0 mmol/L 3.5-5.0 Chloride 104 mmol/L 101-111 Co2 (Carbon Dioxide) 29.0 mmol/L 22-32 Anion Gap 6.0 mmol/L 2-11 94 Glucose 150 mg/dL High 70-100 BUN 13 mg/dL 6-24 Creatinine 0.90 mg/dL 0.50-1.40 One Over Creatinine 1.10 BUN/Creatinine Ratio 14.4 8-20 Calcium 9.6 mg/dL 8.1-9.9 Total Protein 6.5 GM/DL 6.2-8.1 Albumin 4.2 GM/DL 3.2-5.2 Globulin 2.3 GM/DL 2-4 Albumin/Globulin Ratio 1.8 1-3 Bilirubin Total 1.0 mg/dL 0.4-1.5 95 Alkaline Phosphatase 67 U/L 39-117 Alt (SGPT) 35 U/L 17-63 Ast (Sgot) 28 U/L 12-42 eGFR Non- 84.2 > 60 eGFR 108.2 > 60 96 Lipid Panel 11/17/2010 [facility] Triglyceride 257 mg/dL High 40-200 [address] [place] [address] [phone] Cholesterol 216 mg/dL High Less Than 200 97 High Density Lipoprotein 36 mg/dL Low 40-60 98 Cholesterol/HDL Ratio 6.00 AVERAGE High 1-4.97 Low Density Lipoprotein 129 mg/dL High Less Than 100 99 Laboratory test 11/17/2010 [facility] TSH 0.37 MIU/ML 0.34- 5.60 finding [address] [place] [address] [phone] Thyroxine Free 0.90 ng/dL 0.61-1.24 Laboratory test 06/26/2009 [facility] CPK (Creatine 90 U/L 0- 200 100 finding 101 [facility] [place]) [place] [address] [phone] Thyroxine Free 0.83 NG/ML 0.61-1.24 101 TSH 2.42 MIU/ML 0.34-5.60 PSA Screening 0.23 NG/ML 0-4 102 Lipid Profile 06/26/2009 [facility] Triglyceride 212 mg/dL High 40-200 (Trig/Chol/HDL) [address] [place] [address] [phone] Cholesterol 250 mg/dL High Less Than 200 103 High Density Lipoprotein 39 mg/dL Low 40-60 104 Cholesterol/HDL Ratio 6.41 AVERAGE High 1-4.97 Low Density Lipoprotein 169 mg/dL High Less Than 100 105 Comp Metabolic Panel 06/26/2009 [facility] Sodium 138 mmol/L 135-145 [address] [place] [address] [phone] Potassium 4.3 mmol/L 3.5-5.0 Chloride 104 mmol/L 101-111 Co2 (Carbon Dioxide) 28.0 mmol/L 22-32 Anion Gap 6.0 mmol/L 2-11 106 Glucose 113 mg/dL High 70-100 107 BUN 16 mg/dL 6-24 Creatinine 1.00 mg/dL 0.50-1.40 One Over Creatinine 1.00 BUN/Creatinine Ratio 16.0 8-20 Calcium 9.6 mg/dL 8.1-9.9 108 Total Protein 6.7 GM/DL 6.2-8.1 Albumin 4.2 GM/DL 3.2-5.2 Globulin 2.5 GM/DL 2-4 Albumin/Globulin Ratio 1.7 1-3 Bilirubin Total 0.8 mg/dL 0.4-1.5 109 Alkaline Phosphatase 63 U/L 39-117 Alt (SGPT) 28 U/L 17-63 Ast (Sgot) 23 U/L 12-42 eGFR Non- 79.5 > 60 eGFR 96.1 > 60 110 Surgical 02/04/2009 [facility] Surgical [address] <SEE NOTE> [place], [place] [id number] [phone] Basic 06/08/2008 [facility] Sodium 140 mmol/L 135- Metabolic [address] [place] [address] [phone] Potassium 4.4 mmol/L 3.5-5.0 Chloride 106 mmol/L 101-111 Co2 (Carbon Dioxide) 30.0 mmol/L 22-32 Anion Gap 4.0 mmol/L 2-11 112 Glucose 121 mg/dL High 70-100 113 BUN 18 mg/dL 6-24 Creatinine 0.91 mg/dL 0.50-1.40 One Over Creatinine 1.00 BUN/Creatinine Ratio 19.8 8-20 Calcium 9.7 mg/dL 8.1-9.9 114 Lipid Profile 06/08/2008 [facility] Triglyceride 191 mg/dL 40 -200 (Trig/Chol/HDL) [address] [place] [address] [phone] Cholesterol 210 mg/dL High Less Than 200 115 High Density Lipoprotein 38 mg/dL Low 40-60 116 Cholesterol/HDL Ratio 5.53 AVERAGE High 1-4.97 Low Density Lipoprotein 134 mg/dL High Less Than 100 117 Liver Function 06/08/2008 [facility] Total Protein 7.2 GM/DL 6.2-8.[address] [place] [address] [phone] Albumin 4.1 GM/DL 3.2-5.2 Globulin 3.1 GM/DL 2-4 Albumin/Globulin Ratio 1.3 1-3 Bilirubin Total 0.7 mg/dL 0.4-1.5 Bilirubin Direct < 0.1 mg/dL Low 0.1-0.5 Indirect Bilirubin (SEE NOTE) mg/dL 0.1-0.75 118 Alkaline Phosphatase 68 U/L 39-117 Alt (SGPT) 32 U/L 17-63 Ast (Sgot) 23 U/L 12-42 Laboratory test 06/08/2008 [facility] CPK (Creatine 85 U/L 0- [address] [place]) [place] [address] [phone] Thyroxine Free 1.00 NG/ML 0.61-1.24 119 TSH 0.52 MIU/ML 0.34-5.60 PSA Screening 0.21 NG/ML 0-4 120 1 Because ethnic data is not always readily available, this report includes an eGFR for both -Americans and non- Americans. The National Kidney Disease Education Program (NKDEP) does not endorse the use of the MDRD equation for patients that are not between the ages of 18 and 70, are , have extremes of body size, muscle mass, or nutritional status, or are non- or non-. According to the National Kidney Foundation, irrespective of diagnosis, the stage of the disease is based on the level of kidney function: Stage Description GFR(mL/min/1.73 m(2)) 1 Kidney damage with normal or decreased GFR 90 2 Kidney damage with mild decrease in GFR 60-89 3 Moderate decrease in GFR 30-59 4 Severe decrease in GFR 15-29 5 Kidney failure <15 (or dialysis) 2 [id number] 3 Unable to calculate due to low microalbumin 4 Test Performed by: [place] [address] 5 Test Performed by: [place] [address] 6 Test Performed by: [place] [address] 7 FASTING 10 HOUR 8 Because ethnic data is not always readily available, this report includes an eGFR for both -Americans and non- Americans. The National Kidney Disease Education Program (NKDEP) does not endorse the use of the MDRD equation for patients that are not between the ages of 18 and 70, are , have extremes of body size, muscle mass, or nutritional status, or are non- or non-. According to the National Kidney Foundation, irrespective of diagnosis, the stage of the disease is based on the level of kidney function: Stage Description GFR(mL/min/1.73 m(2)) 1 Kidney damage with normal or decreased GFR 90 2 Kidney damage with mild decrease in GFR 60-89 3 Moderate decrease in GFR 30-59 4 Severe decrease in GFR 15-29 5 Kidney failure <15 (or dialysis) 9 Desirable: <150 Borderline High: 150-199 High: 200-499 Very High: >500 10 Desirable: <200 Borderline High: 200-239 High: >239 11 Low: <40 Desirable: 40-60 High: >60 12 Desirable: <100 Near Optimal: 100-129 Borderline High: 130-159 High: 160-189 Very High: >189 13 Therapeutic target for the treatment of diabetes mellitus patients is <7% HBA1C, and in selective patients <6.0%. Please refer to [place] [employer] diabetic care guidelines for further information. 14 SEE RESULT BELOW Name: KOLE SUÁREZ : [address]: Jhon Ravi MD Acct: [id number] Unit: [id number] AGE: 76 Location: [place] [address] Re10/09/17 Dis: 10/11/17 SEX: M Status: DIS IN SPEC: [id number] VICK: 10/10/17-[address] [facility] [address]: Jairon Quan MD REQ: [id number] RECD: 10/10/17134 STATUS: ELIJAH GRIFFITH DR: Monroe Ravi MD _ ORDERED: LEVEL 4/2, IMMUNO-FIRST An H. pylori immunohistochemical stain, with appropriately reacting controls , was performed on sections cut from specimen one and is negative for Helicobacter organisms. Addendum Signed (signature on file) Latonya Stark MD 0940 FINAL DIAGNOSIS 1. Stomach, greater curvature, biopsy: -- Marked active, chronic gastritis; see comment. 2. Colon, sigmoid, biopsy: -- Ischemic colitis. COMMENT: An H. pylori immunohistochemical stain is pending for specimen 1 and the results will be reported in an addendum. CLINICAL HISTORY Abdominal pain, bloody diarrhea; BUN up POST-OPERATIVE DIAGNOSIS EGD: Larynx ? normal, narrow; esophagus ? tic at approximate 35, smooth; esophagogastric - normal; stomach ? flattish/? atrophic, no polyps, CLOtest; biopsy x6; duodenum ? normal x40 cm. Colon: flex sigmoid ? normal 0-25 then colon erythema exudate biopsied x5. Conclusions/Plan: Esophageal tic; gastritis, biopsied; mild diverticulosis; ischemic colitis CONTINUED ON NEXT PAGE DEPARTMENT OF PATHOLOGY, [address] [place] [address] Rico Fields M.D. Director [facility] # [id number] RUN DATE: 10/13/17 [facility] LIVE PAGE 2 Patient: SUÁREZKOLE [id number] (Continued) GROSS DESCRIPTION (Continued) GROSS DESCRIPTION 1. The specimen is received in formalin labeled, Biopsy Gastric Greater Curvature, and consists of a 0.5 by up to 0.3 x 0.2 cm packer irregular soft tissue fragment which is submitted entirely in one cassette. 2. The specimen is received in formalin labeled, Biopsies Sigmoid Colon, and consists of a 0.5 x 0.3 x 0.2 cm aggregate of packer-dubose irregular soft tissue fragments which is submitted entirely in one cassette. Signed (signature on file) Latonya Stark MD 1121 END OF REPORT DEPARTMENT OF PATHOLOGY, [address] [place] [address] Rico Fields M.D. Director [facility] # [id number] 15 >100 to <200 pg/mL: likely compensated congestive heart failure (CHF) 200 to 400 pg/mL: likely moderate CHF >400 pg/mL: likely moderate to severe CHF 16 SEE RESULT BELOW Name: KOLE SUÁREZ Nikhil : [address]: Windy Figueroa MD Acct: [id number] Unit: [id number] AGE: 76 Location: ED Re10/09/17 SEX: M Status: REG ER SPEC: [id number] VICK: 10/09/[address] [facility] [address]: Windy Figueroa MD REQ: [id number] RECD: 10/09/17 STATUS: COMP NATALIIAHR DR: Monroe Swift MD _ SOURCE: STOOL SPDESC: ORDERED: Occult Bl, Diag Procedure Result Reported Site Stool Occult Blood (1) Final 10/09/17- 951 ML Stool Occult Blood Positive * ML - MAIN LAB ([facility]) . END OF REPORT * ML=Testing performed at Main Lab DEPARTMENT OF PATHOLOGY, [address] [place] [address] Rico Fields M.D. Director [facility] # [id number] 17 Because ethnic data is not always readily available, this report includes an eGFR for both -Americans and non- Americans. The National Kidney Disease Education Program (NKDEP) does not endorse the use of the MDRD equation for patients that are not between the ages of 18 and 70, are , have extremes of body size, muscle mass, or nutritional status, or are non- or non-. According to the National Kidney Foundation, irrespective of diagnosis, the stage of the disease is based on the level of kidney function: Stage Description GFR(mL/min/1.73 m(2)) 1 Kidney damage with normal or decreased GFR 90 2 Kidney damage with mild decrease in GFR 60-89 3 Moderate decrease in GFR 30-59 4 Severe decrease in GFR 15-29 5 Kidney failure <15 (or dialysis) 18 Copy Result to: GENIA SWIFT ([id number]) 19 Copy Result to: GENIA SWIFT ([id number]) 20 Copy Result to: GENIA SWIFT ([id number]) 21 Because ethnic data is not always readily available, this report includes an eGFR for both -Americans and non- Americans. The National Kidney Disease Education Program (NKDEP) does not endorse the use of the MDRD equation for patients that are not between the ages of 18 and 70, are , have extremes of body size, muscle mass, or nutritional status, or are non- or non-. According to the National Kidney Foundation, irrespective of diagnosis, the stage of the disease is based on the level of kidney function: Stage Description GFR(mL/min/1.73 m(2)) 1 Kidney damage with normal or decreased GFR 90 2 Kidney damage with mild decrease in GFR 60-89 3 Moderate decrease in GFR 30-59 4 Severe decrease in GFR 15-29 5 Kidney failure <15 (or dialysis) 22 Test Performed by: [address] [address] 23 Therapeutic target for the treatment of diabetes Mellitus patients is <7% HBA1C, and in selective patients <6.0%.Please refer to [place] [employer] Diabetic care guidelines for further information. 24 FASTING 10 HOUR 25 Desirable <150 Borderline high 150-199 High 200-499 Very High >500 26 Desirable <200 Borderline high 200-239 High >239 27 Low <40 Desirable: 40-60 High: >60 28 Desirable: <100 mg/dL Near Optimal: 100-129 mg/dL Borderline High: 130-159 mg/dL High: 160-189 mg/dL Very High: >189 mg/dL 29 Because ethnic data is not always readily available, this report includes an eGFR for both -Americans and non- Americans. The National Kidney Disease Education Program (NKDEP) does not endorse the use of the MDRD equation for patients that are not between the ages of 18 and 70, are , have extremes of body size, muscle mass, or nutritional status, or are non- or non-. According to the National Kidney Foundation, irrespective of diagnosis, the stage of the disease is based on the level of kidney function: Stage Description GFR(mL/min/1.73 m(2)) 1 Kidney damage with normal or decreased GFR 90 2 Kidney damage with mild decrease in GFR 60-89 3 Moderate decrease in GFR 30-59 4 Severe decrease in GFR 15-29 5 Kidney failure <15 (or dialysis) 30 Interpretive information available on [employer] Lab Test Catalog at [email or web address] 31 [employer] Glass: [id number] JERRYNOTricia CORTÉS 32 SEE RESULT BELOW Name: SUÁREZADITYA VARGASDARRIN Tejeda : [address]: Britt Servin MD Acct: [id number] Unit: [id number] AGE: 75 Location: ED Re09/07/16 SEX: M Status: REG ER SPEC: [id number] VICK: 09/07/[address] [facility] [address]: Britt Servin MD REQ: [id number] RECD: 09/07/16 STATUS: NATALIIA GRIFFITH DR: Monroe Swift MD _ SOURCE: NASAL SPDESC: ORDERED: Flu A B Request Procedure Result Reported Site Rapid Influenza A B Request Final 09/07/161853 ML Specimen received for Influenza A/B Molecular testing * ML - MAIN LAB ([facility]) . END OF REPORT * ML=Testing performed at Main Lab DEPARTMENT OF PATHOLOGY, [address] [place] [id number] Rico Fields M.D. Director [facility] # [id number] 33 Because ethnic data is not always readily available, this report includes an eGFR for both -Americans and non- Americans. The National Kidney Disease Education Program (NKDEP) does not endorse the use of the MDRD equation for patients that are not between the ages of 18 and 70, are , have extremes of body size, muscle mass, or nutritional status, or are non- or non-. According to the National Kidney Foundation, irrespective of diagnosis, the stage of the disease is based on the level of kidney function: Stage Description GFR(mL/min/1.73 m(2)) 1 Kidney damage with normal or decreased GFR 90 2 Kidney damage with mild decrease in GFR 60-89 3 Moderate decrease in GFR 30-59 4 Severe decrease in GFR 15-29 5 Kidney failure <15 (or dialysis) 34 Acute inflammation: >10.00 35 Result TnIDx:0.18 Called to [id number] at: 19:13:12 by:[id number] Read back by: [id number] 99th percentile=0.04 ng/mL Troponin results at [facility] and [facility] are not interchangeable. 36 [facility] Severe Sepsis and Septic Shock Management Bundle Measure requires all lactic acids initially measuring >2.0 mmol/L be repeated. 37 >100 to <200 pg/mL: likely compensated congestive heart failure (CHF) 200 to 400 pg/mL: likely moderate CHF >400 pg/mL: likely moderate to severe CHF 38 SEE RESULT BELOW Name: KOLE SUÁREZ : [address]: Everardo Cutler MD Acct: [id number] Unit: [id number] AGE: 75 Location: ICU [id number] Re09/07/16 Dis: 09/08/16 SEX: M Status: DIS IN SPEC: [id number] VICK: 09/07/[address] [facility] [address]: Britt Servin MD REQ: [id number] RECD: 09/07/16 STATUS: NATALIIA GRIFFITH DR: Monroe Swift MD _ SOURCE: BLOOD,VENO SPDESC: ORDERED: Blood Cult Procedure Result Reported Site Aerobic Culture Bottle Final 09/12/16- 1906 ML No Growth Day 5 Anaerobic Culture Bottle Final 09/12/16- 1906 ML No Growth Day 5 * ML - MAIN LAB ([facility]) . END OF REPORT * ML=Testing performed at Main Lab DEPARTMENT OF PATHOLOGY, [address] [place] [address] Rico Fields M.D. Director [facility] # [id number] 39 Because ethnic data is not always readily available, this report includes an eGFR for both -Americans and non- Americans. The National Kidney Disease Education Program (NKDEP) does not endorse the use of the MDRD equation for patients that are not between the ages of 18 and 70, are , have extremes of body size, muscle mass, or nutritional status, or are non- or non-. According to the National Kidney Foundation, irrespective of diagnosis, the stage of the disease is based on the level of kidney function: Stage Description GFR(mL/min/1.73 m(2)) 1 Kidney damage with normal or decreased GFR 90 2 Kidney damage with mild decrease in GFR 60-89 3 Moderate decrease in GFR 30-59 4 Severe decrease in GFR 15-29 5 Kidney failure <15 (or dialysis) 40 Unable to report test result due to hemolysis. 41 Unable to report test result due to hemolysis. 42 >100 to <200 pg/mL: likely compensated congestive heart failure (CHF) 200 to 400 pg/mL: likely moderate CHF >400 pg/mL: likely moderate to severe CHF 43 Please note: The following may produce a false positive D Dimer test: - Rheumatoid factor greater than 60 IU/ml - Plasma hemoglobin greater than 0.05 gm/dl - Bilirubin greater than 50 mg/dl - Lipids greater than 1000 mg/dl - FDP greater than 20 ug/ml 44 Because ethnic data is not always readily available, this report includes an eGFR for both -Americans and non- Americans. The National Kidney Disease Education Program (NKDEP) does not endorse the use of the MDRD equation for patients that are not between the ages of 18 and 70, are , have extremes of body size, muscle mass, or nutritional status, or are non- or non-. According to the National Kidney Foundation, irrespective of diagnosis, the stage of the disease is based on the level of kidney function: Stage Description GFR(mL/min/1.73 m(2)) 1 Kidney damage with normal or decreased GFR 90 2 Kidney damage with mild decrease in GFR 60-89 3 Moderate decrease in GFR 30-59 4 Severe decrease in GFR 15-29 5 Kidney failure <15 (or dialysis) 45 Unable to calculate due to low microalbumin 46 Therapeutic target for the treatment of diabetes Mellitus patients is <7% HBA1C, and in selective patients <6.0%.Please refer to [place] [employer] Diabetic care guidelines for further information. 47 Because ethnic data is not always readily available, this report includes an eGFR for both -Americans and non- Americans. The National Kidney Disease Education Program (NKDEP) does not endorse the use of the MDRD equation for patients that are not between the ages of 18 and 70, are , have extremes of body size, muscle mass, or nutritional status, or are non- or non-. According to the National Kidney Foundation, irrespective of diagnosis, the stage of the disease is based on the level of kidney function: Stage Description GFR(mL/min/1.73 m(2)) 1 Kidney damage with normal or decreased GFR 90 2 Kidney damage with mild decrease in GFR 60-89 3 Moderate decrease in GFR 30-59 4 Severe decrease in GFR 15-29 5 Kidney failure <15 (or dialysis) 48 Desirable <150 Borderline high 150-199 High 200-499 Very High >500 49 Desirable <200 Borderline high 200-239 High >239 50 Low <40 Desirable: 40-60 High: >60 51 Desirable: <100 mg/dL Near Optimal: 100-129 mg/dL Borderline High: 130-159 mg/dL High: 160-189 mg/dL Very High: >189 mg/dL [address] Monroe Swift [address] Monroe Swift 54 06/18 55 Because ethnic data is not always readily available, this report includes an eGFR for both -Americans and non- Americans. The National Kidney Disease Education Program (NKDEP) does not endorse the use of the MDRD equation for patients that are not between the ages of 18 and 70, are , have extremes of body size, muscle mass, or nutritional status, or are non- or non-. According to the National Kidney Foundation, irrespective of diagnosis, the stage of the disease is based on the level of kidney function: Stage Description GFR(mL/min/1.73 m(2)) 1 Kidney damage with normal or decreased GFR 90 2 Kidney damage with mild decrease in GFR 60-89 3 Moderate decrease in GFR 30-59 4 Severe decrease in GFR 15-29 5 Kidney failure <15 (or dialysis) 56 AA 06/18 57 SEE RESULT BELOW Name: KOLE SUÁREZ : [address]: Marline Kim MD Acct: [id number] Unit: [id number] AGE: 74 Location: [facility] Re06/07/15 SEX: M Status: REG REF SPEC: [id number] VICK: 06/07/[address] [facility] [address]: Marline Kim MD REQ: [id number] RECD: 06/07/15 STATUS: NATALIIA GRIFFITH DR: Monroe Weiss MD _ SOURCE: URINE SPDESC: ORDERED: Urine Culture QUERIES: Urine Source: Clean Catch Procedure Result Verified Site Urine Culture Final 06/09/15- 0901 ML No Growth Day 2 (<1,000 CFU/mL) * ML - MAIN LAB ([facility]) . END OF REPORT * ML=Testing performed at Main Lab DEPARTMENT OF PATHOLOGY, [address] [place] [address] Rico Fields M.D. Director [facility] # [id number] 58 Therapeutic target for the treatment of diabetes Mellitus patients is <7% HBA1C, and in selective patients <6.0%.Please refer to [place] [employer] Diabetic care guidelines for further information. 59 Desirable <150 Borderline high 150-199 High 200-499 Very High >500 60 Desirable <200 Borderline high 200-239 High >239 61 Low <40 Desirable: 40-60 High: >60 62 Desirable: <100 mg/dL Near Optimal: 100-129 mg/dL Borderline High: 130-159 mg/dL High: 160-189 mg/dL Very High: >189 mg/dL 63 Because ethnic data is not always readily available, this report includes an eGFR for both -Americans and non- Americans. The National Kidney Disease Education Program (NKDEP) does not endorse the use of the MDRD equation for patients that are not between the ages of 18 and 70, are , have extremes of body size, muscle mass, or nutritional status, or are non- or non-. According to the National Kidney Foundation, irrespective of diagnosis, the stage of the disease is based on the level of kidney function: Stage Description GFR(mL/min/1.73 m(2)) 1 Kidney damage with normal or decreased GFR 90 2 Kidney damage with mild decrease in GFR 60-89 3 Moderate decrease in GFR 30-59 4 Severe decrease in GFR 15-29 5 Kidney failure <15 (or dialysis) 64 Because ethnic data is not always readily available, this report includes an eGFR for both -Americans and non- Americans. The National Kidney Disease Education Program (NKDEP) does not endorse the use of the MDRD equation for patients that are not between the ages of 18 and 70, are , have extremes of body size, muscle mass, or nutritional status, or are non- or non-. According to the National Kidney Foundation, irrespective of diagnosis, the stage of the disease is based on the level of kidney function: Stage Description GFR(mL/min/1.73 m(2)) 1 Kidney damage with normal or decreased GFR 90 2 Kidney damage with mild decrease in GFR 60-89 3 Moderate decrease in GFR 30-59 4 Severe decrease in GFR 15-29 5 Kidney failure <15 (or dialysis) 65 Desirable <150 Borderline high 150-199 High 200-499 Very High >500 66 Desirable <200 Borderline high 200-239 High >239 67 Low <40 Desirable: 40-60 High: >60 68 Desirable <100 Near Optimal 100-129 Borderline high 130-159 High 160-189 Very High >189 69 Therapeutic target for the treatment of diabetes Mellitus patients is <7% HBA1C, and in selective patients <6.0%.Please refer to [place] [employer] Diabetic care guidelines for further information. 70 Microalbuminuria in a random sample is defined as: Microalbumin/Creatinine ratio of 30-299 ug/mg. 71 Therapeutic target for the treatment of diabetes Mellitus patients is <7% HBA1C, and in selective patients <6.0%.Please refer to [place] [employer] Diabetic care guidelines for further information. 72 Therapeutic target for the treatment of diabetes Mellitus patients is <7% HBA1C, and in selective patients <6.0%.Please refer to [place] [employer] Diabetic care guidelines for further information. 73 Because ethnic data is not always readily available, this report includes an eGFR for both -Americans and non- Americans. The National Kidney Disease Education Program (NKDEP) does not endorse the use of the MDRD equation for patients that are not between the ages of 18 and 70, are , have extremes of body size, muscle mass, or nutritional status, or are non- or non-. According to the National Kidney Foundation, irrespective of diagnosis, the stage of the disease is based on the level of kidney function: Stage Description GFR(mL/min/1.73 m(2)) 1 Kidney damage with normal or decreased GFR 90 2 Kidney damage with mild decrease in GFR 60-89 3 Moderate decrease in GFR 30-59 4 Severe decrease in GFR 15-29 5 Kidney failure <15 (or dialysis) 74 HDL Interpretation: Undesirable: High Risk: Less than 40 MG/DL Desirable: Low Risk: Greater than 60 MG/DL 75 LDL Interpretation: Low Risk Optimal Level: LDL Less than 100 MG/DL Near or Above Optimal: LDL 100-129 MG/DL Borderline High Risk: LDL 130-159 MG/DL High Risk: LDL 160-189 MG/DL Very High Risk: LDL Greater than 189 MG/DL 76 A metabolite of Naproxen, O-desmethylnaproxen, has been shown to interfere with the Jendrassik-Lizbet method for measuring total bilirubin. Samples from patients who have taken Naproxen have shown spurious elevation in total bilirubin levels. 77 Please note updated reference range, effective 03/06/10 78 CHOLESTEROL INTERPRETATION: Desirable: Less than 200 MG/DL Borderline-High Risk: 200-239 MG/DL High-Risk: 240 MG/DL and over 79 HDL INTERPRETATION: Undesirable: High Risk: Less than 40 MG/DL Desirable: Low Risk: Greater than 60 MG/DL 80 LDL INTERPRETATION: Low Risk Optimal Level: LDL Less than 100 MG/DL Near or Above Optimal: LDL 100-129 MG/DL Borderline High Risk: LDL 130-159 MG/DL High Risk: LDL 160-189 MG/DL Very High Risk: LDL Greater than 189 MG/DL 81 Anion gap measurement may be of limited value in the presence of any alkalosis, especially in a combined acid base disorder. . 82 Because ethnic data is not always readily available, this report includes an eGFR for both -Americans and non- Americans. The National Kidney Disease Education Program (NKDEP) does not endorse the use of the MDRD equation for patients that are not between the ages of 18 and 70, are , have extremes of body size, muscle mass, or nutritional status, or are non- or non-. According to the National Kidney Foundation, irrespective of diagnosis, the stage of the disease is based on the level of kidney function: Stage Description GFR(mL/min/1.73 m(2)) 1 Kidney damage with normal or decreased GFR 90 2 Kidney damage with mild decrease in GFR 60-89 3 Moderate decrease in GFR 30-59 4 Severe decrease in GFR 15-29 5 Kidney failure <15 (or dialysis) 83 Anion gap measurement may be of limited value in the presence of any alkalosis, especially in a combined acid base disorder. . 84 Because ethnic data is not always readily available, this report includes an eGFR for both -Americans and non- Americans. The National Kidney Disease Education Program (NKDEP) does not endorse the use of the MDRD equation for patients that are not between the ages of 18 and 70, are , have extremes of body size, muscle mass, or nutritional status, or are non- or non-. According to the National Kidney Foundation, irrespective of diagnosis, the stage of the disease is based on the level of kidney function: Stage Description GFR(mL/min/1.73 m(2)) 1 Kidney damage with normal or decreased GFR 90 2 Kidney damage with mild decrease in GFR 60-89 3 Moderate decrease in GFR 30-59 4 Severe decrease in GFR 15-29 5 Kidney failure <15 (or dialysis) 85 NO MRSA ISOLATED 86 Anion gap measurement may be of limited value in the presence of any alkalosis, especially in a combined acid base disorder. . 87 Because ethnic data is not always readily available, this report includes an eGFR for both -Americans and non- Americans. The National Kidney Disease Education Program (NKDEP) does not endorse the use of the MDRD equation for patients that are not between the ages of 18 and 70, are , have extremes of body size, muscle mass, or nutritional status, or are non- or non-. According to the National Kidney Foundation, irrespective of diagnosis, the stage of the disease is based on the level of kidney function: Stage Description GFR(mL/min/1.73 m(2)) 1 Kidney damage with normal or decreased GFR 90 2 Kidney damage with mild decrease in GFR 60-89 3 Moderate decrease in GFR 30-59 4 Severe decrease in GFR 15-29 5 Kidney failure <15 (or dialysis) 88 Recommended INR for Patients on Oral Anticoagulants Prophylaxis 2.0 - 3.0 Treatment of thrombosis 2.0 - 3.0 Prevention of embolism 2.0 - 3.0 Prevention of embolism from prosthetic heart valves 2.5 - 3.5 89 DIAGNOSIS,TREATMENT,AND THERAPY MUST BE BASED ON THE INR VALUE ALONE. 90 Anion gap measurement may be of limited value in the presence of any alkalosis, especially in a combined acid base disorder. . 91 Because ethnic data is not always readily available, this report includes an eGFR for both -Americans and non- Americans. The National Kidney Disease Education Program (NKDEP) does not endorse the use of the MDRD equation for patients that are not between the ages of 18 and 70, are , have extremes of body size, muscle mass, or nutritional status, or are non- or non-. According to the National Kidney Foundation, irrespective of diagnosis, the stage of the disease is based on the level of kidney function: Stage Description GFR(mL/min/1.73 m(2)) 1 Kidney damage with normal or decreased GFR 90 2 Kidney damage with mild decrease in GFR 60-89 3 Moderate decrease in GFR 30-59 4 Severe decrease in GFR 15-29 5 Kidney failure <15 (or dialysis) 92 Recommended INR for Patients on Oral Anticoagulants Prophylaxis 2.0 - 3.0 Treatment of thrombosis 2.0 - 3.0 Prevention of embolism 2.0 - 3.0 Prevention of embolism from prosthetic heart valves 2.5 - 3.5 93 DIAGNOSIS,TREATMENT,AND THERAPY MUST BE BASED ON THE INR VALUE ALONE. 94 Anion gap measurement may be of limited value in the presence of any alkalosis, especially in a combined acid base disorder. . 95 A metabolite of Naproxen, O-desmethylnaproxen, has been shown to interfere with the Jendrassik-Lizbet method for measuring total bilirubin. Samples from patients who have taken Naproxen have shown spurious elevation in total bilirubin levels. 96 Because ethnic data is not always readily available, this report includes an eGFR for both -Americans and non- Americans. The National Kidney Disease Education Program (NKDEP) does not endorse the use of the MDRD equation for patients that are not between the ages of 18 and 70, are , have extremes of body size, muscle mass, or nutritional status, or are non- or non-. According to the National Kidney Foundation, irrespective of diagnosis, the stage of the disease is based on the level of kidney function: Stage Description GFR(mL/min/1.73 m(2)) 1 Kidney damage with normal or decreased GFR 90 2 Kidney damage with mild decrease in GFR 60-89 3 Moderate decrease in GFR 30-59 4 Severe decrease in GFR 15-29 5 Kidney failure <15 (or dialysis) 97 CHOLESTEROL INTERPRETATION: Desirable: Less than 200 MG/DL Borderline-High Risk: 200-239 MG/DL High-Risk: 240 MG/DL and over 98 HDL INTERPRETATION: Undesirable: High Risk: Less than 40 MG/DL Desirable: Low Risk: Greater than 60 MG/DL 99 LDL INTERPRETATION: Low Risk Optimal Level: LDL Less than 100 MG/DL Near or Above Optimal: LDL 100-129 MG/DL Borderline High Risk: LDL 130-159 MG/DL High Risk: LDL 160-189 MG/DL Very High Risk: LDL Greater than 189 MG/DL 100 FASTING 101 PLEASE NOTE NEW REFERENCE RANGES. 102 * SERUM LEVELS OF PSA MEASURED USING THE CLIFF Imagekind ACCESS HYBRITECH IMMUNOASSAY SHOULD NOT BE INTERPRETED ABSOLUTE EVIDENCE OF THE PRESENCE OR ABSENCE OF DISEASE. THE PSA VALUE SHOULD BE USED IN CONJUNCTION WITH OTHER PERTINENT CLINICAL DIAGNOSTIC PROCEDURES. A PSA value in the range of 0.1 to 0.6 ng/ml is indeterminate if being used as an indicator of recurrent or residual disease. . 103 CHOLESTEROL INTERPRETATION: Desirable: Less than 200 MG/DL Borderline-High Risk: 200-239 MG/DL High-Risk: 240 MG/DL and over 104 HDL INTERPRETATION: Undesirable: High Risk: Less than 40 MG/DL Desirable: Low Risk: Greater than 60 MG/DL 105 LDL INTERPRETATION: Low Risk Optimal Level: LDL Less than 100 MG/DL Near or Above Optimal: LDL 100-129 MG/DL Borderline High Risk: LDL 130-159 MG/DL High Risk: LDL 160-189 MG/DL Very High Risk: LDL Greater than 189 MG/DL 106 Anion gap measurement may be of limited value in the presence of any alkalosis, especially in a combined acid base disorder. . 107 Note change in reference range as of 04/05/08. The change was based on recommendations from the [place] [employer]. 108 Please note change in reference range effective 08 . 109 A metabolite of Naproxen, O-desmethylnaproxen, has been shown to interfere with the Jendrassik-[place] method for measuring total bilirubin. Samples from patients who have taken Naproxen have shown spurious elevation in total bilirubin levels. 110 Because ethnic data is not always readily available, this report includes an eGFR for both -Americans and non- Americans. The National Kidney Disease Education Program (NKDEP) does not endorse the use of the MDRD equation for patients that are not between the ages of 18 and 70, are , have extremes of body size, muscle mass, or nutritional status, or are non- or non-. According to the National Kidney Foundation, irrespective of diagnosis, the stage of the disease is based on the level of kidney function: Stage Description GFR(mL/min/1.73 m(2)) 1 Kidney damage with normal or decreased GFR 90 2 Kidney damage with mild decrease in GFR 60-89 3 Moderate decrease in GFR 30-59 4 Severe decrease in GFR 15-29 5 Kidney failure <15 (or dialysis) 111 ----- RUN DATE: 02/06/09 [facility] NMI LIVE PAGE 1 RUN TIME: 1442 Specimen Inquiry RUN USER: INTERFACE -- Name: KOLE SUÁREZ Status: REG REF Re02/04/09 Age/Sex: 68/M Unit#: [id number] Location: END : 42 -- Specimen: [id number] [facility] Spec Date: 02/04/[address]: Juan Pablo zabala MD Spec Type: SURGICAL P Received: 02/05/09-1214 Copies to: Monroe salter MD SPECIMEN BIOPSY COLON POLYP AT 40 CM. HISTORY POST-OP DIAGNOSIS: Small polyp removed CLINICAL INFORMATION: Screening colonoscopy GROSS DESCRIPTION The specimen is received in formalin labelled Kole TejedaRohan Arturo, Biopsy Colon Polyp at 40 cm., and consists of one fragment of packer-yellow tissue measuring 0.5 x 0.2 x 0.2 cm. Submitted entirely, one cassette. DIAGNOSIS Colon, polyp at 40 cm., biopsy: A. Tubular adenoma. B. No high grade dysplasia or malignancy. Signed Electronically by: ROSA MEDINA 02/06/09 1442 -- -- DEPARTMENT OF PATHOLOGY, [address] [place] [address] [facility] Permit #[id number] Rico Fields M.D. Director Rosa Medina M.D. Service Cashier Dir teja -- 112 Anion gap measurement may be of limited value in the presence of any alkalosis, especially in a combined acid base disorder. . 113 Note change in reference range as of 04/05/08. The change was based on recommendations from the [place] [employer]. 114 Please note change in reference range effective 08 . 115 CHOLESTEROL INTERPRETATION: Desirable: Less than 200 MG/DL Borderline-High Risk: 200-239 MG/DL High-Risk: 240 MG/DL and over 116 HDL INTERPRETATION: Undesirable: High Risk: Less than 40 MG/DL Desirable: Low Risk: Greater than 60 MG/DL 117 LDL INTERPRETATION: Low Risk Optimal Level: LDL Less than 100 MG/DL Near or Above Optimal: LDL 100-129 MG/DL Borderline High Risk: LDL 130-159 MG/DL High Risk: LDL 160-189 MG/DL Very High Risk: LDL Greater than 189 MG/DL 118 UNABLE TO CALCULATE IND.BILI D.BILI IS <0.1 119 PLEASE NOTE NEW REFERENCE RANGES. 120 * SERUM LEVELS OF PSA MEASURED USING THE [employer]im[employer] ACCESS HYBRITECH IMMUNOASSAY SHOULD NOT BE INTERPRETED ABSOLUTE EVIDENCE OF THE PRESENCE OR ABSENCE OF DISEASE. THE PSA VALUE SHOULD BE USED IN CONJUNCTION WITH OTHER PERTINENT CLINICAL DIAGNOSTIC PROCEDURES. A PSA value in the range of 0.1 to 0.6 ng/ml is indeterminate if being used as an indicator of recurrent or residual disease. . Procedures Date Code Description Status 05/03/2018 72387 EKG Tracing & Interpretation Completed 04/29/2018 91751 Pace Maker Eval W/Iterative Adjment Dual Lead Completed 10/22/2017 33629 Pace Maker Eval W/Iterative Adjment Dual Lead Completed 10/22/2017 76197 Pace Maker Eval W/Iterative Adjment Dual Lead Completed 04/23/2017 04196 Pace Maker Eval W/Iterative Adjment Dual Lead Completed 01/06/2017 91471 ECHO Transthorasic Realtime 2D W Doppler & Color Flow Completed Hosp 12/16/2016 14602 Pace Maker Eval W/Iterative Adjment Dual Lead Completed 12/11/2016 [id number] Diabetic Retinal Eye Exam Completed 11/11/2016 37196 Pace Maker Eval W/Iterative Adjment Dual Lead Completed 10/14/2016 27841 Pace Maker Eval W/Iterative Adjment Dual Lead Completed 09/23/2016 26129 EKG Tracing & Interpretation Completed 09/08/2016 90112 EKG, Interpretation Only Completed 09/08/2016 90810 Endo-Trachial Tube Completed 09/07/2016 33426 ECHO Transthoracic, Real-Time 2D With Doppler And Completed Color Flow 09/07/2016 41800 Pace Maker Eval W/Iterative Adjment Dual Lead Completed 08/17/2016 98338 Diffusing Capacity Completed 08/17/2016 64751 Spirometry Incl Graphic Record Completed 06/16/2016 13925 Cath PLMT&NJX L Ventriculog Img S&I Completed 06/16/2016 27157 Intravascular Ultrasound (Coron) Completed 05/27/2016 63796 ECHO Transthorasic Realtime 2D W Doppler & Color Flow Completed Hosp 04/01/2016 51147 EKG Tracing & Interpretation Completed 03/27/2016 31676 Inject/Drain Joint/Bursa Major W/O US Completed 06/20/2015 32927 EKG, Interpretation Only Completed 06/18/2015 16454 TKR Total Knee Replacement Completed 06/18/2015 00693 TKR Total Knee Replacement Completed 05/06/2015 98609 EKG Tracing & Interpretation Completed 05/01/2015 08430 Treadmill Interp/Report Only Completed 05/01/2015 72467 Stress Test Supervsn W/Out I/R Completed 02/07/2015 Inject/Drain Joint/Bursa Major W/O US Completed 01/31/2015 Inject/Drain Joint/Bursa Major W/O US Completed 01/24/2015 Inject/Drain Joint/Bursa Major W/O US Completed 01/03/2015 01689 ECHO Transthorasic Realtime 2D W Doppler & Color Flow Completed Hosp 12/04/2014 14605 EKG Tracing & Interpretation Completed 10/30/201406842 Inject/Drain Joint/Bursa Major W/O US Completed 03/27/2014 91345 Xray Knee 3 Views Completed 03/16/2014 45954 EKG Tracing & Interpretation Completed 06/20/2013 82753 EKG Tracing & Interpretation Completed 12/16/2012 38871 EKG Tracing & Interpretation Completed 10/25/2012 86863 Xray Knee 3 Views Completed 10/25/2012 30084 Xray Knee 3 Views Completed 10/25/2012 90487 Rad Exam; Knee, Ap&L Completed 07/26/2012 32402 EKG Tracing & Interpretation Completed 06/27/2010 86893 Arthroscopy,Knee,Meniscectomy Medial Or Lateral Completed 04/29/2010 50087 Xray Knee 3 Views Completed 12/18/2009 84630 Impl Or Replac Device For Intrathecal Or Epidural Drug Completed Infusion 02/04/2009 [id number] Colonoscopy Completed Encounters Type Date Location Provider Dx Diagnosis Office Visit 05/03/2018 [facility] Jess Jones, Z95.2 Presence of 11:15a Of Marge Brock prosthetic heart valve I25.810 Atherosclerosis of CABG w/o angina pectoris I44.2 Atrioventricular block, complete Z95.0 Presence of cardiac pacemaker I45.10 Unspecified right bundle-branch block I25.5 Ischemic cardiomyopathy E78.5 Hyperlipidemia, unspecified I48.0 Paroxysmal atrial fibrillation I49.3 Ventricular premature depolarization Office Visit 10/18/2017 12:00p [facility] Monroe Glover K55.031 Focal ( segmental) Eric - Delmy Swift,FACP acute ischemia of [address] large intestine K80.80 Other cholelithiasis without obstruction I10 Essential (primary) hypertension Office Visit 10/11/2017 [facility] Jhon K92.2 Gastrointestinal 10:05a [place] esquivel M.D. hemorrhage, Hospitalists unspecified E78.5 Hyperlipidemia, unspecified E03.9 Hypothyroidism, unspecified Z86.711 Personal history of pulmonary embolism Office Visit 10/10/2017 [facility] Jhon K92.2 Gastrointestinal 9:58a Assch[place] esquivel M.D. hemorrhage, Hospitalists unspecified E78.5 Hyperlipidemia, unspecified E03.9 Hypothyroidism, unspecified Z86.711 Personal history of pulmonary embolism Office Visit 10/09/2017 [facility] Aparna K92.2 Gastrointestinal 9:57a Assocchico D.O. hemorrhage, Hospitalists unspecified E78.5 Hyperlipidemia, unspecified E03.9 Hypothyroidism, unspecified Z86.711 Personal history of pulmonary embolism Office Visit 10/01/2017 10:00a Marge Glover M72.0 Palmar fascial Eric Swift M.D.,FACP fibromatosis [address] [Dupuytren] I71.4 Abdominal aortic aneurysm, without rupture M25.561 Pain in right knee Office Visit 06/16/2017 11:20a Marge Glover E11.9 Type 2 diabetes Eric Swift M.D.,FACP mellitus without [address] complications I71.4 Abdominal aortic aneurysm, without rupture Z95.2 Presence of prosthetic heart valve L97.501 Non-prs chr ulcer oth prt unsp foot limited to brkdwn skin M19.011 Primary osteoarthritis, right shoulder Z23 Encounter for immunization Office Visit 04/20/2017 11:15a [facility] Jess Jones, Z95.0 Presence of Of Marge Brock cardiac pacemaker I47.2 Ventricular tachycardia Office Visit 02/22/2017 11:30a Marge Glover I25.10 Athscl heart Eric Swift M.D.,FACP disease of Rd [place] coronary artery w/o ang pctrs I10 Essential (primary) hypertension M19.011 Primary osteoarthritis, right shoulder E11.9 Type 2 diabetes mellitus without complications Office Visit 01/27/2017 11:20a [facility] Joe Weiss, Z95.2 Presence of Of Marge AT [facility] Delmy, FAC, prosthetic heart FSCAI valve I25.10 Athscl heart disease of [place] coronary artery w/o ang pctrs I10 Essential (primary) hypertension Z95.0 Presence of cardiac pacemaker Office Visit 11/20/2016 9:20a [facility] Internal Monroe Glover Z00.01 Encounter for Medicine - Delmy Swift,FACP general adult [address] medical exam w abnormal findings I26.99 Other pulmonary embolism without acute cor pulmonale I10 Essential (primary) hypertension M25.512 Pain in left shoulder E11.9 Type 2 diabetes mellitus without complications 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 cardiac pacemaker Office Visit 11/04/2016 2:20p [facility] Internal Monroe Glover I26.99 Other pulmonary Medicine - [address], embolism without Rd Delmy,FACP acute cor pulmonale M25.562 Pain in left knee M25.561 Pain in right knee Office Visit 09/23/2016 11:20a [facility] Joe Weiss, I25.10 Athscl heart Of [employer] AT [facility] Delmy, [facility], disease [facility] [place] coronary artery w/o ang pctrs I10 Essential (primary) hypertension Z95.2 Presence of prosthetic heart valve Z95.0 Presence of cardiac pacemaker Office Visit 09/14/2016 11:30a [facility] Internal Monroe Glover I26.99 Other pulmonary Medicine - Delmy Swift,FACP embolism without [address] acute cor pulmonale I25.10 Athscl heart disease of [place] coronary artery w/o ang pctrs I10 Essential (primary) hypertension Z95.2 Presence of prosthetic heart valve Office Visit 09/08/2016 [facility] Jose Leos I26.02 Saddle embolus 10:37a chico Farley II, M.D. of pulmonary Hospitalists artery with acute cor pulmonale Z95.1 Presence of aortocoronary bypass graft Z95.0 Presence of cardiac pacemaker E03.9 Hypothyroidism, unspecified Office 09/07/2016 [facility] Alejandro J18.1 Lobar Visit 10:36a Assoc,JHONY Angel pneumonia, Hospitalists unspecified organism Z95.1 Presence of aortocoronary bypass graft Z95.0 Presence of cardiac pacemaker E03.9 Hypothyroidism, unspecified Office Visit 09/07/2016 11:20a [facility] Joe Weiss, I25.10 Athscl heart Of [facility] AT [facility], disease of FSCAI [place] coronary artery w/o ang pctrs I35.0 Nonrheumatic aortic (valve) stenosis Z95.2 Presence of prosthetic heart valve Z95.0 Presence of cardiac pacemaker R00.0 Tachycardia, unspecified Office Visit 06/24/2016 2:45p [facility] Joe Weiss, Z48.812 Encntr for Of [facility] AT [facility], [facility], surgical aftcr FSCAI following surgery on the circ sys I25.10 Athscl heart disease of [place] coronary artery w/o ang pctrs I35.0 Nonrheumatic aortic (valve) stenosis Office Visit 06/10/2016 3:20p [facility] Joe Weiss, I35.0 Nonrheumatic Of [facility] AT [facility], [facility], aortic (valve) FSCAI stenosis I10 Essential (primary) hypertension I25.10 Athscl heart disease of [place] coronary artery w/o ang pctrs Office Visit 05/15/2016 [facility] Andrew Hathaway, M19.011 Primary 2:30p Services Of osteoarthritis, C.M.A. right shoulder Office Visit 04/29/2016 [facility] Internal [place] M54.14 Radiculopathy, 8:50a Medicine - [place], thoracic region Rd M.D.,FACP I10 Essential (primary) hypertension Z96.651 Presence of right artificial knee joint N52.9 Male erectile dysfunction, unspecified I71.4 Abdominal aortic aneurysm, without rupture Z23 Encounter for immunization Office Visit 04/29/2016 11:15a Orthopedic Services Marline Kim, M25.561 Pain in right Of C.M.A. M.D. knee Z96.651 Presence of right artificial knee joint S43.421D Sprain of right rotator cuff capsule, subsequent encounter M54.6 Pain in thoracic spine Office Visit 04/06/2016 9:15a Orthopedic Marline Kim, M75.41 Impingement Services Of [place] syndrome of right C.M.A. shoulder S43.421D Sprain of right rotator cuff capsule, subsequent encounter Office Visit 04/01/2016 11:20a [facility] Joe Weiss, I10 Essential (primary) Of [employer] AT [facility] [place], FACC, hypertension FSCAI I35.0 Nonrheumatic aortic (valve) stenosis I25.9 Chronic ischemic heart disease, unspecified E78.5 Hyperlipidemia, unspecified I25.10 Athscl heart disease of [place] coronary artery w/o ang pctrs Office Visit 03/27/2016 11:30a Orthopedic Marline Kim, Z96.651 Presence of right Services Of [place] artificial knee C.M.A. joint M16.11 Unilateral primary osteoarthritis, right hip M75.41 Impingement syndrome of right shoulder S43.421A Sprain of right rotator cuff capsule, initial encounter Office Visit 07/03/2015 2:30p [facility] Internal [place] E11.9 Type 2 diabetes Eric Swift M.D.,FACP mellitus without [address] complications Z23 Encounter for immunization Z47.1 Aftercare following joint replacement surgery I71.4 Abdominal aortic aneurysm, without rupture Office Visit 06/20/2015 [facility] Z96.651 Presence of 1:22p Assoc,chico Noland, REED [employer]KER right artificial Hospitalists knee joint I25.10 Athscl heart disease of [place] coronary artery w/o ang pctrs E03.9 Hypothyroidism, unspecified I10 Essential (primary) hypertension Office Visit 06/19/2015 1:22p [facility] Pia S. Z96.651 Presence of Assoc,chico Rendon, N.P. right artificial Hospitalists knee joint I25.10 Athscl heart disease of [place] coronary artery w/o ang pctrs E03.9 Hypothyroidism, unspecified I10 Essential (primary) hypertension Office Visit 06/18/2015 1:20p [facility] Pia S. Z96.651 Presence of Assoc,chico Rendon, N.P. right artificial Hospitalists knee joint I25.10 Athscl heart disease of [place] coronary artery w/o ang pctrs E03.9 Hypothyroidism, unspecified I10 Essential (primary) hypertension Office Visit 05/10/2015 1:40p [facility] Internal [place] M67.472 Ganglion , left Eric Swift M.D.,FACP ankle and foot [address] E03.9 Hypothyroidism, unspecified Office Visit 05/06/2015 1:40p [facility] Joe Weiss, I35.0 Nonrheumatic Of [facility] AT [facility] Delmy, WANDA, aortic (valve) FSCAI stenosis I25.9 Chronic ischemic heart disease, unspecified I10 Essential (primary) hypertension Z01.810 Encounter for preprocedural cardiovascular examination Office Visit 03/28/2015 3:00p [facility] Internal [place] V70.0 Examination Eric Swift M.D.,FAC General Medical [address] Routine AT Health Care Facility 401.9 Hypertension Unspec 250.00 Diabetes Mellitus W/O Compl Type II Or Unspec Controlled 441.4 Aneurysm Abdominal W/O Rupture 244.8 Hypothyroidism Other Spec v03.82 Streptococcus Pneumoniae Vaccination Spec Other Office Visit 03/21/2015 11:00a Orthopedic Marline 715.16 Osteoarthrosis Services Of [place] Kim Localized Prim Lower C.M.A. Leg 719.46 Pain Joint Lower Leg 719.06 Effusion Joint Lower Leg Office Visit 01/25/2015 3:00p [facility] Nurse Visit 401.9 Hypertension Unspec Of [facility] AT [facility] IC Office Visit 01/03/2015 1:00p [facility] Joe Weiss, 424.1 Aortic Valve Of [facility] AT [facility] WANDA Brock, Disorder FSCAI 401.9 Hypertension Unspec 414.9 Ischemic Heart Disease Chronic Unspec 272.4 Hyperlipidemia Other Unspec Office Visit 12/11/2014 1:15p Orthopedic Nithin Cuevas 715.16 Osteoarthrosis Services Of [place] Localized Prim Lower C.M.A. Leg Office Visit 12/04/2014 3:00p [place] Joe Weiss, 424.1 Aortic Valve Cardiology Of [place], FACC, Disorder [facility] AT [facility] FSCAI 401.9 Hypertension Unspec 414.9 Ischemic Heart Disease Chronic Unspec 272.4 Hyperlipidemia Other Unspec Office Visit 10/25/2014 2:45p Jonnathan Cuevas, 715.16 Osteoarthrosis Services Of [place] Localized Prim Lower C.M.A. Leg Office Visit 03/27/2014 1:15p Orthopedic Nithin Cuevas, 715.16 Osteoarthrosis Services Of [place] Localized Prim Lower C.M.A. Leg Office Visit 03/16/2014 2:45p Chelita Weiss, 414.9 Ischemic Heart Cardiology Of [place], FAC, Disease Chronic [employer] AT [facility] FSCAI Unspec 424.1 Aortic Valve Disorder 401.9 Hypertension Unspec 272.4 Hyperlipidemia Other Unspec Office Visit 11/09/2013 3:40p [facility] Internal [place] V70.0 Examination Eric Swift M.D.,[facility] Routine AT Health Care Facility 414.9 Ischemic Heart Disease Chronic Unspec 250.00 Diabetes Mellitus W/O Compl Type II Or Unspec Controlled 441.4 Aneurysm Abdominal W/O Rupture 244.8 Hypothyroidism Other Spec Office Visit 06/20/2013 2:00p [facility] Joe Weiss, 424.1 Aortic Valve Of Marge Brock, [facility], Disorder FSCAI 414.9 Ischemic Heart Disease Chronic Unspec 401.9 Hypertension Unspec 272.4 Hyperlipidemia Other Unspec Office Visit 12/16/2012 3:45p [facility] Joe Weiss, 414.9 Ischemic Heart [facility], Disease Chronic [facility] Unspec 424.1 Aortic Valve Disorder Office Visit 11/28/2012 [facility] Elaina Glover 715.16 Osteoarthrosis 10:10a Eric Swift M.D.,[facility] Localized Prim Lower [place] Leg 250.00 Diabetes Mellitus W/O Compl Type II Or Unspec Controlled 550.90 Hernia Inguinal W/O Obstruct Or Gangrene Unilateral Unspec Office Visit 10/25/2012 11:30a Orthopedic Nithin Cuevas 715.36 Osteoarthrosis Services Of [place] Localzd Not Spec C.M.A. Prime Or 2Ndy Lower Leg Office Visit 07/29/2012 10:00a [facility] Internal [place] V70.0 Examination General Eric Swift, Medical Routine AT [facility] 414.01 Coronary Atherosclerosis Upper [place] 327.27 Central Sleep Apnea In Conditions Classified Elsewhere 250.00 Diabetes Mellitus W/O Compl Type II Or Unspec Controlled 441.4 Aneurysm Abdominal W/O Rupture V04.89 Need For Prophylactic Vaccination & Inoculation Other Virus V04.81 Need For Prophylactic Vaccination & Inoculation/Influenza Office Visit 07/26/2012 10:45a [facility] Joe Weiss, 414.9 Ischemic Heart Of Marge Brock, [facility], Disease Chronic FSCAI Unspec 401.9 Hypertension Unspec 272.4 Hyperlipidemia Other Unspec Office Visit 02/05/2012 12:00p [facility] Internal [place] 693.0 Dermatitis Due To Medicine Delym Swift,[facility] Drugs & Medicines [place] 414.01 Coronary Atherosclerosis [place] Office Visit 12/02/2010 2:00p DO Not Use Marge Glover V70.0 Examination AT Nasrin Swift M.D.,[facility] General Medical Routine AT Health Care Facility V77.1 Screening Diabetes Mellitus 244.9 Hypothyroidism Other Unspec 401.1 Hypertension Benign 424.1 Aortic Valve Disorder Office Visit 04/29/2010 4:00p Orthopedic Nithin Cuevas, 716.96 Arthropathy Unspec Services Of [place] Lower Leg C.M.A. 836.0 Dislocation Knee Tear Of Medial Cartilage Or Meniscus Curren Office Visit 12/18/2009 9:00a DO Not Use [facility] Roberto Carlos, 078.3 Cat Scratch AT Nasrni Keating M.D. Disease E906.5 Bite By Unspec Animal Office Visit 07/01/2009 10:20a DO Not Use Marge Glover 244.9 Hypothyroidism Other AT Nasrin Swift M.D.,[facility] Unspec 401.1 Hypertension Benign 424.1 Aortic Valve Disorder 272.2 Hyperlipidemia Mixed 550.90 Hernia Inguinal W/O Obstruct Or Gangrene Unilateral Unspec Office Visit 06/14/2008 2:00p DO Not Use Marge [place] V70.0 Examination AT Nasrin Swift M.D.,[facility] General Medical Routine AT Health Care Facility v70.0 Examination General Medical Routine AT Health Care Facility 401.1 Hypertension Benign 244.9 Hypothyroidism Other Unspec 790.21 Impaired Fasting Glucose 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 at [facility] Internal Medicine [facility]10/27/2018 7:00 am - Pacemaker Schedule at [facility]07/27/2018 - [place] Swift M.D.,FACPE11.9 Type 2 diabetes mellitus without complicationsComments:You are meeting goal for blood sugar control. Continue following a low sugar diet. Discussed weightloss and exercise. A yearly nutrition visit is available to all diabetics. You are on a moderate-potency statin to prevent new or recurrent heart disease, which is common in diabetics. Follow up with Dr. Iverson as discussed.I71.4 Abdominal aortic aneurysm, without ruptureNew Xrays:US Aorta Complete, Ordered: Comments:We will recheck your aneurysm. Complete ultrasound of aorta as discussed.K80.80 Other cholelithiasis without obstructionComments:Gallstones seen without associated symptoms are generally left alone. Call me if you have episodes of nausea or pain in right upper abdomen in the future. Goals 07/27/2018 - Monroe Swift M.D.,FACPE11.9 Type 2 diabetes mellitus without complicationsGoal Hemoglobin A1c is less than 7.0% in ages 18-74 Goal Hemoglobin A1c is between 7.0% and 8.0% in age over 75 Goal Blood pressure is less than 130/85. Cholesterol should be lowered by a high or moderate-dose statin.
--- OUTSIDE RECORDS SUMMARY | 2018-08-10 13:54 | XMS REPORT | Continuity of Care Document ---
:1940 External Reference #:[id number] Author Name Becky Mackey Care Team Providers Name Role Phone Cullen Jordan MD Primary Care Physician Unavailable Payers Type Date Identification Numbers Payment Provider Subscriber Effective: 2008 Policy Number: [id number] Medicare Kole Suárez PayID: [id number] [address] [place] [address] Policy Number: [id number] [employer] Kole Suárez Group Number: [id number] [address] PayID: [id number] [place] [address] Advance Directives Description No Information Available Problems Date Description Provider Status Onset: 10/18/2017 Cholelithiasis without Monroe Swift Active obstruction Delmy,FACP Onset: 06/14/2008 Hypothyroidism Jose Carlos Coates M.D.,FACP Onset: 07/01/2009 Mixed hyperlipidemia Jose Carlos Coates M.D.FACP Onset: 12/31/2010 Abdominal aortic aneurysm without Monroe Swift Active rupture Delmy,FACP Note: 4 cm Onset: 02/06/2012 Coronary arteriosclerosis Jose Carlos Coates M.D.,FACP Onset: 07/29/2012 Type 2 [...] Onset: 05/06/2015 Chronic ischemic heart disease, Joe Weiss M.D., JAVIER, Inactive unspecified FSCAI Inactive: 12/27/2016 [...] 03/12 Active Tablets 50mg 10tab take 1 [place] s tablet by eleno Jordan as M.D. [...] by mouth ts every day Adalberto Swift M.D.,[facility] Multivitamin Active 1 po daily Metformin HCL 10/11 Hx Tablets 500mg 1 by mouth daily - 10/18 Augmentin 07/09 Hx Tablets 875-125mg 14tab by mouth s twice a day Mildred Vance.DRohan,[facility] 10/01 Amlodipine 02/01 Hx Tablets 5mg 90tab Take 1 Monroe Bes s Tablet By Adalberto Swift, - Mouth Every M.D.,[facility] Amlodipine 12/04 Hx Tablets 2.5mg 30tab 1 by mouth Monroe Bes s every day Mildred Vance M.D.,FACP 02/01 Furosemide 11/09 Hx Tablets 40mg 30tab 1 by mouth Monroe s every day Mildred Vance M.D.,[facility] 11/20 Furosemide 10/29 Hx Tablets 20mg 30tab take 1 s tablet every Adalberto Swift, - morning M.D.,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.D.,[facility] 11/20 not taking at this time) Warfarin 09/14 Hx Tablets 3mg 120ta 2 tabs daily bs or as Adalberto Swift, - directed Delmy,[facility] 12/13 Lisinopril 09/14 Hx Tablets 10mg 30tab 1 by mouth I10 s every day Adalberto Swift, - Delmy,[facility] 10/05 Cheratussin ac 09/14 Hx Syrup 100-10mg/ 236ml 10 5ML milliliters Adalberto Swift, - by mouth Delmy,[facility] 11/04 four times a day as needed Tramadol HCL 04/29 Hx Tablets 50mg 60tab four times a Z96.651 s day as Adalberto Swift, - needed M.Adalberto,[facility] 06/09 Oxycodone HCL 10/14 Hx Tablets 5mg 45tab 1-2 tab by s mouth twice [place], - a day as FIELD ADJUSTER 03/31 needed for pain Oxycodone HCL 07/04 Hx Tablets 5mg 60tab 1 -2 tabs by Latonya /2015 s mouth every [place], - 6 hours as FIELD ADJUSTER 07/18 needed pain Cephalexin 06/26 Hx Tablets 500mg 60tab one by mouth Z47.1 s four times a [place], - day for two FIELD ADJUSTER Oxycodone HCL 06/07 Hx Tablets 5mg 90tab 1-2 every 4 M17.11 s hours as Julio, - needed for M.D. 09/21 pain. Warfarin 06/07 Hx Tablets 2mg 60tab 1 tablet by M17.11 Latonya Sodium s mouth daily, Shayna, - or dose per FIELD ADJUSTER 07/03 /mind[facility] nurse service. do not start [...] - a day as M.D. 01/24 needed [place] 10/26 Hx Tablets 5-325mg 40tab 1-2 tabs [...] Auto-Inject ML s directed Adalberto Swift, - Delmy,[facility] 03/26 Synthroid 10/26 Hx Tablets 125mcg 30tab Take 1 Monroe s Tablet By Adalberto Swift, - Mouth One M.DRohan,FACP 01/11 Time Daily Simvastatin 12/16 Hx Tablets 40mg 90tab 1 by mouth s every night Stefecam, - at bedtime M.D., 12/07 [facility] Celebrex 11/28 Hx Capsules 200mg 30cap 1 po bid prn 715.16 Mildred Frankel M.D.,[facility] 11/09 Voltaren 11/28 Hx Gel 1% 100un Apply 4 715.16 its Grams To Mildred Vance M.D.,[facility] 03/26 Area Times A Day as Needed Plavix 02/04 Hx Tablets 75mg 90tab 1 po qd 693.0 Monroe Mildred rFankel M.D.,[facility] 09/02 Triamcinolone 02/04 Hx Cream 0.5% 30g qd prn 693.0 Monroe Acetonide Mildred Vance M.D.,[facility] 07/29 Sarna 02/04 Hx Lotion 0.5-0.5% 60g as needed 693.0 Monroe Mildred Vance M.D.,[facility] 07/29 Medrol Dosepak 02/04 Hx Tablets 4mg 1Pak as directed 693.0 Monroe Mildred Vance M.D.,[facility] 07/29 Lisinopril 02/04 Hx Tablets 40mg 90tab 1 tab by I10 Jeo s mouth every Stefek, - day (on M.D., 09/14 hold) [facility] Simvastatin 02/04 Hx Tablets 40mg 90tab 1 po qhs 414.01 s Mildred Vance M.D.,[facility] 12/16 Furosemide 02/04 Hx Tablets 20mg 45tab 1/2 tab by 414.01 Joe s mouth every Stefek, - day M.DRohan, 10/24 [facility] Metoprolol 02/04 Hx Tablets ER 100mg 180ta 1 by mouth Joe Succinate 24HR bs twice a day Mildred Weiss M.D., 09/06 [facility] Isosorbide 02/04 Hx Tablets ER 60mg 135ta 1 1/2 tabs I25.10 Joe Mononitrate 24HR bs by mouth Isela - every day M.DRohan, 09/06 [facility] Aspirin Ec 12/[address] 81mg 90tab po qd Monroe Mildred Frankel M.D.,[facility] 06/20 Metoprolol 12/23 Hx Tablets ER 25mg 30tab 2 po qd Monroe Succinate 24HR s Mildred Vance M.D.,[facility] 02/04 Glucosamine 12/02 Hx Tablets po bid Monroe Chondroitin Adalberto Swift Advanced Mildred Brock,[facility] 02/04 Aleve 12/02 Hx Tablets 220mg bid prn Monroe Mildred Vance M.D.,[facility] 02/04 Lisinopril 12/02 Hx Tablets 20mg 60tab 1 po qd 401.1 Monroe Mildred Frankel M.D.,[facility] 02/04 Prinzide 12/23 Hx Tablets 20-12.5mg 90tab Take One 401.1 s Tablet By Adalberto Swift - Mouth Every M.D.,[facility] 12/02 Augmentin 12/18 Hx Tablets 875-125mg 20tab 1 tablet bid 078.3 Stevano s for 10 days , Mildred Keating M.D. 07/24 Prinizide Hx 12.5/20 90uni 1 po qAM Monroe / mg ts Mildred Vance M.D.,[facility] 07/24 Aspirin Hx Tablets 325mg 60tab 1/2 tabs q Stefek, / s day MD Joe - 09/14 Glucosamine Hx 1 po qd Unknown Chondroitin /0000 - 03/26 Synthroid Hx Tablets 137mcg 30tab Take One Monroe s Tablet By Adalberto Swift, - Mouth Once M.D.,[facility] 10/26 Daily /2013 Colace Hx Capsules [...] CPT Code Status Date Vaccine Lot # [id number] Given 07/27/2018 Influenza Virus Vaccine, Quadrivalent, Split, [id number] Preservative Free 69029 Given 06/30/2018 Zoster (Shingles) Vaccine (HZV), Recombinant, Subunit, Adjuvanted 10838 Given 02/11/2018 Zoster (Shingles) Vaccine (HZV), Recombinant, Subunit, Adjuvanted 72691 Given 06/16/2017 Influenza Virus Vaccine, Quadrivalent, Split, [id number] Preservative Free 26215 Given 04/29/2016 Influenza Virus Vaccine, Quadrivalent, Split, [id number] Preservative Free 77463 Given 07/03/2015 Influenza Virus Vaccine, Quadrivalent, Split, [id number] Preservative Free 22051 Given 03/28/2015 Pneumococcal Conjugate Vaccine 13 Valent For [id number] Intramuscular Use Q2037 Given 07/29/2012 Fluvirin Im [id number] And Older [id number] 19188 Given 07/29/2012 Zoster (Zostavax) [id number] 59371 Given 12/18/2009 Tetanus And Diptheria (Td) For Adult Use [id number] Preservative Free 69591 Given 07/01/2009 Pneumonia Vaccine [id number] Vital Signs Date Vital Result Comment 07/27/2018 [...] Result H/L Range Note Laboratory test 07/27/2018 [facility] Hemoglobin A1c 6.7 5-7 finding Laboratory test 05/23/2018 [facility] TSH (Thyroid 4.96 N 0.34 -5.[address] Stim Horm) mcIU/[place] [address] [phone] Laboratory test 02/10/2018 [facility] Lipase 13 U/L N 11.0- 82.[address] [place], [place] [id number] [phone] Comp Metabolic 02/10/2018 [facility] Sodium 139 mmol/L N 135- [address] [place] [address] [phone] Potassium 4.5 mmol/L N 3.5-5.0 Chloride 106 [...] Egfr 79.8 >60 1 Urine Microalbumin 11/25/2017 [facility] Ur Microalbumin < 15.[address] (mg/L) mg/[place] [address] [phone] Urine Creatinine 148.27 mg/dL Urine Microalbumin/Creatinine TNP ug/mg <31 3 Thyroid 11/24/2017 [facility] Thyroid Stim 5.5 mIU/L Abnormal 0.3-4.[address] [place] [address] [phone] Free T4 1.1 ng/dL 0.9 - 1.7 5 Thyroperoxidase Antibody 6.8 IU/mL <9.0 6 Comp Metabolic Panel 11/24/2017 [facility] Sodium 137 mmol/L Low 139-[address] [place] [address] [phone] Potassium 4.0 mmol/L N 3.5-5.0 Chloride 103 [...] Egfr 85.7 >60 8 Lipid Profile 11/24/2017 [facility] Triglycerides 90 mg/dL 9 (Trig/Chol/HDL) [address] [place], [place] [id number] [phone] Cholesterol 93 mg/dL 10 HDL Cholesterol 42.2 mg/dL 11 LDL Cholesterol 33 mg/dL 12 Laboratory 11/24/2017 [facility] Hemoglobin A1c 6.9 % High 4.0 -5.[address] (Glyco HGB) [place], [place] [id number] [phone] Laboratory 10/10/2017 [facility] Surgical SEE RESULT [address] Interface Order BELOW [place], [place] [id number] [phone] Laboratory 10/09/2017 [facility] B-Type 162 pg/mL High [address] [place] [address] Peptide BNP [phone] Stool Occult 10/09/2017 [facility] Stool Occult SEE RESULT [address] Blood, Diag BELOW [place], [place] [id number] [phone] Type & Screen 10/09/2017 [facility] Patient [place] [address] [phone] Antibody Screen NEGATIVE Laboratory test 10/09/2017 [facility] Partial 27.7 N 26.0- 36.[address] [place] [address] PTT [phone] Inr/Protime 10/09/2017 [facility] Inr 1.04 High 0.77-1.[address] [place] [address] [phone] CBC Auto Diff 10/09/2017 [facility] White Blood 15.3 High 3.5- 10.[address] Count 10^3/[place] [address] [phone] Red Blood Count 4.32 10^6/uL N 4.0-5.4 [...] Cells % 0 Comp Metabolic Panel 10/09/2017 [facility] Sodium 132 mmol/L Low 133-145 [place] [address] [phone] Potassium 3.2 mmol/L Low 3.5-5.0 Chloride 100 [...] Egfr 31.2 >60 17 Urinalysis Profile 10/09/2017 [facility] Urine Color Yellow [address] [place] [address] [phone] Urine Appearance Cloudy Urine Specific [place] 1.013 N 1.010-1.030 Urine pH 5.0 N 5-9 Urine Urobilinogen Negative Negative Urine Ketones Negative Negative Urine Protein Negative Negative Urine Leukocytes Negative Negative Urine Blood Negative Negative Urine Nitrite Negative Negative Urine Bilirubin Negative Negative Urine Glucose Negative Negative Laboratory test 06/16/2017 [facility] Hemoglobin A1c 6.8 5-7 finding Laboratory test 01/22/2017 [facility] TSH (Thyroid Stim 1.93 N 0.34-5.60 18 finding [facility] Horm) mcIU/[place] [address] [phone] Free T4 (Free Thyroxine) 0.88 ng/dL N 0.61-1.12 19 Magnesium 2.1 mg/dL N 1.9-2.7 20 Basic Metabolic Panel 12/05/2016 [facility] Sodium 137 mmol/L N 133-[address] [place] [address] [phone] Potassium 4.1 mmol/L N 3.5-5.0 Chloride 104 mmol/L N 101-111 Co2 Carbon Dioxide 28 mmol/L N 22-32 Anion Gap 5 mmol/L N 2-11 Glucose 112 mg/dL High 70-100 Blood Urea Nitrogen 13 mg/dL N 6-24 Creatinine 0.86 mg/dL N 0.67-1.17 BUN/Creatinine Ratio 15.1 N 8-20 Calcium 9.5 mg/dL N 8.6-10.3 Egfr Non- 86.9 N >60 Egfr 111.8 N >60 21 Laboratory test 12/05/2016 [facility] Rheumatoid Factor <15 IU/ mL N <15 22 finding [facility] [place] [address] [phone] Uric Acid 5.6 mg/dL N 4.4-7.6 Erythrocyte Sed Rate 20 mm/Hr N 0-40 Hemoglobin A1c (Glyco HGB) 6.4 % High Less than 6.0 23 Protime W/ Inr 11/20/2016 [facility] Prothrombin Time 31.0 Inr 2.5 Protime W/ Inr 11/09/2016 [facility] Prothrombin Time 33.3 Inr 2.7 Laboratory test 10/28/2016 [facility] TSH (Thyroid 0.42 mcIU/mL N 0.34-5.60 [address] Stim [place]orm) [place] [address] [phone] CBC Auto Diff 10/28/2016 [facility] White Blood 7.6 10^3/uL N 3.5-10.[address] [place] [address] [phone] Red Blood Count 4.93 10^6/uL N 4.0-5.4 [...] Cells % 0 N Lipid Profile 10/28/2016 [facility] Triglycerides 88 mg/dL N 25 (Trig/Chol/HDL) [address] [place] [address] [phone] Cholesterol 115 mg/dL N 26 HDL Cholesterol 42.8 mg/dL N 27 LDL Cholesterol 55 mg/dL N 28 Comp Metabolic Panel 10/28/2016 [facility] Sodium 138 mmol/L N 133-[address] [place] [address] [phone] Potassium 4.4 mmol/L N 3.5-5.0 Chloride 105 [...] N >60 29 Protime W/ Inr 10/26/2016 [facility] Prothrombin Time 23.3 Inr 1.9 Protime W/ Inr 10/19/2016 [facility] Prothrombin Time 16.5 Inr 1.4 Protime W/ Inr 10/12/2016 Other Rendering Inr 1.5 Protime W/ Inr 10/02/2016 Other Rendering Inr 1.5 Protime W/ Inr 09/22/2016 Other Rendering Inr 2.4 Protime W/ Inr 09/15/2016 Other Rendering Inr 2.5 Urinalysis Profile 09/07/2016 [facility] Urine Color Gaby N [address] [place] [address] [phone] Urine Appearance Cloudy N Urine Specific [place] 1.020 N 1.010-1.030 Urine pH 5.0 N 5-9 Urine Urobilinogen Negative N Negative Urine Ketones Negative N Negative Urine Protein Negative N Negative Urine Leukocytes Negative N Negative Urine Blood Negative N Negative Urine Nitrite Negative N Negative Urine Bilirubin Negative N Negative Urine Glucose Negative N Negative Laboratory test 09/07/2016 [facility] Procalcitonin 0.3 ng/mL N <0.6 [address] [place] [address] [phone] Rapid Influenza 09/07/2016 [facility] Influenza A NEGATIVE N Negative 31 A & B Molecular [address] [place] [address] [phone] Influenza B Molecular NEGATIVE N Negative Laboratory test 09/07/2016 [facility] Rapid Influenza SEE RESULT [address] [place] [address] [phone] Comp Metabolic 09/07/2016 [facility] Sodium 134 mmol/L N 133- [address] 5 [place] [address] [phone] Potassium 4.7 mmol/L N 3.5-5.0 Chloride 102 [...] 67.2 N >60 33 Laboratory test 09/07/2016 [facility] C Reactive 246.88 mg/L High < 5.[address] [place] [address] [phone] Troponin-I (TnI) 0.18 ng/mL High <0.04 35 Lactic Acid 1.8 mmol/L N 0.5-2.0 36 B-Type Natriuretic Peptide BNP 299 pg/mL High 37 CBC Auto 09/07/2016 [facility] White Blood 18.0 10^3/uL High 3.5-10.[address] [place] [address] [phone] Red Blood Count 4.39 10^6/uL N 4.0-5.4 [...] Cells % 0 N Laboratory test 09/07/2016 [facility] Partial 31.7 seconds N 26.0-36.[address] [place] [address] PTT [phone] Blood Culture SEE RESULT BELOW 38 CBC Auto 09/07/2016 [facility] White Blood 20.5 10^3/uL High 3.5-10.[address] [place] [address] [phone] Red Blood Count 4.46 10^6/uL N 4.0-5.4 [...] % 0 N Comp Metabolic Panel 09/07/2016 [facility] Sodium 135 mmol/L N 133-[address] [place] [address] [phone] Chloride 101 mmol/L N 101-111 Co2 Carbon [...] U/L N 13-39 41 Laboratory test 09/07/2016 [facility] B-Type 228 pg/mL High [address] [place] [address] Peptide BNP [phone] D Dimer Quantitative > 1050 ng/mL High Less Than 230 43 Basic Metabolic Panel 06/12/2016 [facility] Sodium 138 mmol/L N 133-[address] [place] [address] [phone] Potassium 4.4 mmol/L N 3.5-5.0 Chloride 105 mmol/L N 101-111 Co2 Carbon Dioxide 29 mmol/L N 22-32 Anion Gap 4 mmol/L N 2-11 Glucose 94 mg/dL N 70-100 Blood Urea Nitrogen 10 mg/dL N 6-24 Creatinine 0.96 mg/dL N 0.67-1.17 BUN/Creatinine Ratio 10.4 N 8-20 Calcium 9.5 mg/dL N 8.6-10.3 Egfr Non- 76.8 N >60 Egfr 98.7 N >60 44 Inr/Protime 06/12/2016 [facility] Inr 0.96 N 0.89-1.[address] [place] [address] [phone] Cath Panel 06/12/2016 [facility] Partial 29.7 seconds N 26.0- 36.[address] [place] [address] PTT [phone] CBC Auto Diff 06/12/2016 [facility] White Blood 8.1 10^3/uL N 3.5-10.[address] [place] [address] [phone] Red Blood Count 4.94 10^6/uL N 4.0-5.4 [...] Cells % 0.1 N Laboratory test 05/25/2016 [facility] TSH (Thyroid 3.78 N 0.34 -5.[address] Stim Horm) mcIU/[place] [address] [phone] Urine 05/25/2016 [facility] Urine 67.75 mg/dL N Microalbumin [address] [place] [address] [phone] Ur Microalbumin (mg/L) < 15.0 mg/L N Urine Microalbumin/Creatinine TNP ug/mg N <31 45 Laboratory test 05/25/2016 [facility] Testosterone 285.71 N 240-[address] Total ng/[place] [address] [phone] Hemoglobin A1c (Glyco HGB) 6.3 % High Less than 6.0 46 FSH And LH 05/25/2016 [facility] FSH (Follicle Stim 12.1 mIU/mL N 1-[address] Hormone) [place] [address] [phone] LH (Lutenizing Hormone) 5.0 ?IU/mL N 2-12 Basic Metabolic Panel 05/25/2016 [facility] Sodium 138 mmol/L N 133-[address] [place] [address] [phone] Potassium 4.6 mmol/L N 3.5-5.0 Chloride 105 mmol/L N 101-111 Co2 Carbon Dioxide 29 mmol/L N 22-32 Anion Gap 4 mmol/L N 2-11 Glucose 112 mg/dL High 70-100 Blood Urea Nitrogen 13 mg/dL N 6-24 Creatinine 0.92 mg/dL N 0.67-1.17 BUN/Creatinine Ratio 14.1 N 8-20 Calcium 9.5 mg/dL N 8.6-10.3 Egfr Non- 80.6 N >60 Egfr 103.7 N >60 47 Lipid Profile 03/31/2016 [facility] Triglycerides 79 mg/dL N 48 (Trig/Chol/HDL) [address] [place] [address] [phone] Cholesterol 125 mg/dL N 49 HDL Cholesterol 51.6 mg/dL N 50 LDL Cholesterol 58 mg/dL N 51 Laboratory test finding 03/31/2016 [facility] Alt (SGPT) 13 U/L N 7-52 52 [address] [place] [address] [phone] Ast (Sgot) 18 U/L N 13-39 53 Laboratory test 07/03/2015 [facility] Hemoglobin A1c 5.8 5-7 finding CBC No Diff 06/07/2015 [facility] White Blood Count 7.6 N 4.8- 10.[address] 10^3/[place] [address] [phone] Red Blood Count 4.56 10^6/uL N 4.0-5.4 Hemoglobin 14.1 g/dL N 14.0-18.0 Hematocrit 42 % N 42-52 Mean Corpuscular Volume 92 fL N 80-94 Mean Corpuscular Hemoglobin 31 pg N 27-31 Mean Corpuscular HGB Conc 34 g/dL N 31-36 Red Cell Distribution Width 15 % N 10.5-15 Platelet Count 188 10^3/uL N 150-450 Mean Platelet Volume 8 um3 N 7.4-10.4 Urinalysis Profile 06/07/2015 [facility] Urine Color Yellow N [address] [place] [address] [phone] Urine Appearance Clear N Urine Specific [place] 1.015 N 1.010-1.030 Urine pH 5.0 N 5-9 Urine Urobilinogen Negative N Negative Urine Ketones Negative N Negative Urine Protein Negative N Negative Urine Leukocytes Negative N Negative Urine Blood Negative N Negative Urine Nitrite Negative N Negative Urine Bilirubin Negative N Negative Urine Glucose Negative N Negative Comp Metabolic Panel 06/07/2015 [facility] Sodium 137 mmol/L N 133-145 [address] [place] [address] [phone] Potassium 4.3 mmol/L N 3.5-5.0 Chloride 103 [...] Egfr 102.7 N >60 55 Inr/Protime 06/07/2015 [facility] Inr 0.98 N 0.78-1.[address] [place] [address] [phone] Laboratory test 06/07/2015 [facility] Partial 32.9 seconds N 26.0-36.3 [address] [place] [address] PTT [phone] Type & Screen 06/07/2015 [facility] Patient O Positive N [address] [place] [address] [phone] Antibody Screen NEGATIVE N Laboratory test 06/07/2015 [facility] Urine Culture And SEE RESULT [address] [place] [address] [phone] Laboratory test 05/03/2015 [facility] TSH (Thyroid Stim 3.20 ?IU /mL N 0.34- finding [address] Horm) 5.60 [place], [place] [address] [phone] Free T4 (Free Thyroxine) 0.90 ng/mL N 0.61-1.12 Urine Microalbumin 05/03/2015 [facility] Ur Microalbumin 12.0 mg /L N Random [address] (mg/L) [place] [address] [phone] Urine Creatinine 137.34 mg/dL N Urine Microalbumin/Creatinine [...] Low 0.34-5.60 finding Horm) Laboratory test 01/01/2014 [facility] TSH (Thyroid 0.41 IU/mL N 0.34-5.[address] Stimulating [place]orm) [place] [address] [phone] Free T4 0.93 ng/mL N 0.61-1.12 Comp [...] 0.11 IU/mL Low 0.34-5.60 Urine Microalbumin 11/25/2012 [facility] Ur Microalbumin 9.0 mg/ L [address] (Mg/L) [place] [address] [phone] Urine Creatinine 93.4 mg/dL Urine Microalbumin/Creatinine 9.6 ug/mg Less Than 31 Laboratory test 11/25/2012 [facility] Hemoglobin A1c 7.1 % High Less than [address] 6.0 [place] [address] [phone] Laboratory test 07/19/2012 [facility] Creatine Kinase 80 U/L 0-[address] [place] [address] [phone] TSH (Thyroid Stimulating Horm) 0.88 MIU/ML 0.34-5.60 Hemoglobin A1c 7.6 % High Less than 6.0 72 CMP Panel 07/19/2012 [facility] Sodium 140 mmol/L 133-[address] [place] [address] [phone] Potassium 4.4 mmol/L 3.5-5.0 Chloride 109 mmol/L [...] Egfr 95.3 >60 73 Lipid Panel 07/19/2012 [facility] Triglycerides 122 mg/dL 40- 200 [address] [place] [address] [phone] Cholesterol 140 mg/dL Less than 200 HDL Cholesterol 34 mg/dL Low 40-60 74 Cholesterol/HDL Ratio 4.1 Average 1-4.44 LDL Cholesterol 81.6 mg/dL Less Than 100 75 Liver Function 08/26/2011 [facility] Total Protein 6.1 GM/DL Low 6.2-8.1 Panel [address] [place] [address] [phone] Albumin 4.0 GM/DL 3.2-5.2 Globulin 2.1 GM/DL 2-4 Albumin/Globulin Ratio 1.9 1-3 Bilirubin Total 0.7 mg/dL 0.4-1.5 76 Bilirubin Direct 0.1 mg/dL 0.1-0.5 Indirect Bilirubin 0.6 mg/dL 0.3-1.0 77 Alkaline Phosphatase 85 U/L 39-117 Alt (SGPT) 19 U/L 17-63 Ast (Sgot) 22 U/L 12-42 Lipid Profile 08/26/2011 [facility] Triglyceride 281 mg/dL High 40-200 (Trig/Chol/HDL) [address] [place] [address] [phone] Cholesterol 137 mg/dL Less Than 200 78 High Density Lipoprotein 36 mg/dL Low 40-60 79 Cholesterol/HDL Ratio 3.81 AVERAGE 1-4.97 Low Density Lipoprotein 45 mg/dL Less Than 100 80 Basic Metabolic Panel 08/26/2011 [facility] Sodium 140 mmol/L 135-145 [address] [place] [address] [phone] Potassium 4.2 mmol/L 3.5-5.0 Chloride 106 mmol/L 101-111 Co2 (Carbon Dioxide) 27.0 mmol/L 22-32 Anion Gap 7.0 mmol/L 2-11 81 Glucose 123 mg/dL High 70-100 BUN 13 mg/dL 6-24 Creatinine 1.1 mg/dL 0.50-1.40 One Over Creatinine 0.90 BUN/Creatinine Ratio 11.8 8-20 Calcium 9.4 mg/dL 8.1-9.9 eGFR Non- 66.6 > 60 eGFR 85.6 > 60 82 Basic Metabolic Panel 03/13/2011 [facility] Sodium 137 mmol/L 135-[address] [place] [address] [phone] Potassium 4.5 mmol/L 3.5-5.0 Chloride 105 mmol/L 101-111 Co2 (Carbon Dioxide) 28.0 mmol/L 22-32 Anion Gap 4.0 mmol/L 2-11 83 Glucose 164 mg/dL High 70-100 BUN 9 mg/dL 6-24 Creatinine 0.80 mg/dL 0.50-1.40 One Over Creatinine 1.20 BUN/Creatinine Ratio 11.3 8-20 Calcium 9.2 mg/dL 8.1-9.9 eGFR Non- 96.1 > 60 eGFR 123.6 > 60 84 MRSA/Vre Screen 01/22/2011 [facility] MRSA/Vre NFICU [address] [place] [address] [phone] CBC No Diff 01/16/2011 [facility] White Blood 6.9 CUMM 4.8- 10. [address] Count 8 [place] [address] [phone] Red Cell Count 4.69 CUMM 4.6-6.2 Hemoglobin 14.1 g/dL 14.0-18.0 Hematocrit 42 % 42-52 Mean Corpuscular Volume 89 um3 80-94 Mean Corpuscular Hemoglob 30 pg 27-31 Mean Corpuscular HGB Cone 34 g/dL 32-36 Redcell Distribution WDTH 13 % 10.5-15 Platelet Count 227 CUMM 150-450 Mean Platelet Volume 7.8 um3 7.4-10.4 Basic Metabolic Panel 01/16/2011 [facility] Sodium 139 mmol/L 135-[address] [place] [address] [phone] Potassium 3.9 mmol/L 3.5-5.0 Chloride 108 mmol/L 101-111 Co2 (Carbon Dioxide) 26.0 mmol/L 22-32 Anion Gap 5.0 mmol/L 2-11 86 Glucose 123 mg/dL High 70-100 BUN 9 mg/dL 6-24 Creatinine 0.90 mg/dL 0.50-1.40 One Over Creatinine 1.10 BUN/Creatinine Ratio 10.0 8-20 Calcium 9.3 mg/dL 8.1-9.9 eGFR Non- 83.9 > 60 eGFR 107.9 > 60 87 Protime 01/16/2011 [facility] Inr 0.96 0.82-1.17 88 [address] [place] [address] [phone] Protime 11.3 SEC 10.2-14.8 89 Laboratory test 01/16/2011 [facility] PTT (Aptt) 29.6 25.15- 38.53 finding [address] [place] [address] [phone] CBC No Diff 12/30/2010 [facility] White Blood 7.2 CUMM 4.8- 10.[address] [place] [address] [phone] Red Cell Count 4.78 CUMM 4.6-6.2 Hemoglobin 14.5 g/dL 14.0-18.0 Hematocrit 43 % 42-52 Mean Corpuscular Volume 90 um3 80-94 Mean Corpuscular Hemoglob 30 pg 27-31 Mean Corpuscular HGB Cone 34 g/dL 32-36 Redcell Distribution WDTH 14 % 10.5-15 Platelet Count 216 CUMM 150-450 Mean Platelet Volume 8.4 um3 7.4-10.4 Basic Metabolic Panel 12/30/2010 [facility] Sodium 141 mmol/L 135-145 [address] [place] [address] [phone] Potassium 4.2 mmol/L 3.5-5.0 Chloride 107 mmol/L 101-111 Co2 (Carbon Dioxide) 29.0 mmol/L 22-32 Anion Gap 5.0 mmol/L 2-11 90 Glucose 116 mg/dL High 70-100 BUN 13 mg/dL 6-24 Creatinine 1.00 mg/dL 0.50-1.40 One Over Creatinine 1.00 BUN/Creatinine Ratio 13.0 8-20 Calcium 9.3 mg/dL 8.1-9.9 eGFR Non- 74.3 > 60 eGFR 95.6 > 60 91 Laboratory test 12/30/2010 [facility] PTT (Aptt) 30.0 25.15- 38.53 finding [address] [place] [address] [phone] Protime 12/30/2010 [facility] Inr 1.00 0.82-1.17 92 [address] [place] [address] [phone] Protime 11.8 SEC 10.2-14.8 93 Lipid Panel - 11/17/2010 [facility] CPK (Creatine 80 U/L 0- [address] Kin[place]) [place] [address] [phone] CMP Panel 11/17/2010 [facility] Sodium 139 mmol/L 135-145 [place] [address] [phone] Potassium 4.0 mmol/L 3.5-5.0 Chloride 104 mmol/L [...] 108.2 > 60 96 Lipid Panel 11/17/2010 [facility] Triglyceride 257 mg/dL High 40-200 [address] [place] [address] [phone] Cholesterol 216 mg/dL High Less Than 200 97 High Density Lipoprotein 36 mg/dL Low 40-60 98 Cholesterol/HDL Ratio 6.00 AVERAGE High 1-4.97 Low Density Lipoprotein 129 mg/dL High Less Than 100 99 Laboratory test 11/17/2010 [facility] TSH 0.37 MIU/ML 0.34- 5.60 finding [address] [place] [address] [phone] Thyroxine Free 0.90 ng/dL 0.61-1.24 Laboratory test 06/26/2009 [facility] CPK (Creatine 90 U/L 0- [address] [facility] [place]) [place] [address] [phone] Thyroxine Free 0.83 NG/ML 0.61-1.24 101 TSH 2.42 MIU/ML 0.34-5.60 PSA Screening 0.23 NG/ML 0-4 102 Lipid Profile 06/26/2009 [facility] Triglyceride 212 mg/dL High 40-200 (Trig/Chol/HDL) [address] [place] [address] [phone] Cholesterol 250 mg/dL High Less Than 200 103 High Density Lipoprotein 39 mg/dL Low 40-60 104 Cholesterol/HDL Ratio 6.41 AVERAGE High 1-4.97 Low Density Lipoprotein 169 mg/dL High Less Than 100 105 Comp Metabolic Panel 06/26/2009 [facility] Sodium 138 mmol/L 135-145 [address] [place] [address] [phone] Potassium 4.3 mmol/L 3.5-5.0 Chloride 104 mmol/L [...] eGFR 96.1 > 60 110 Surgical 02/04/2009 [facility] Surgical [address] Pathology <SEE NOTE> [place], [place] [id number] [phone] Basic 06/08/2008 [facility] Sodium 140 mmol/L 135- Metabolic [address] 145 [place] [address] [phone] Potassium 4.4 mmol/L 3.5-5.0 Chloride 106 mmol/L 101-111 Co2 (Carbon Dioxide) 30.0 mmol/L 22-32 Anion Gap 4.0 mmol/L 2-11 112 Glucose 121 mg/dL High 70-100 113 BUN 18 mg/dL 6-24 Creatinine 0.91 mg/dL 0.50-1.40 One Over Creatinine 1.00 BUN/Creatinine Ratio 19.8 8-20 Calcium 9.7 mg/dL 8.1-9.9 114 Lipid Profile 06/08/2008 [facility] Triglyceride 191 mg/dL 40 -200 (Trig/Chol/HDL) [address] [place] [address] [phone] Cholesterol 210 mg/dL High Less Than 200 115 High Density Lipoprotein 38 mg/dL Low 40-60 116 Cholesterol/HDL Ratio 5.53 AVERAGE High 1-4.97 Low Density Lipoprotein 134 mg/dL High Less Than 100 117 Liver Function 06/08/2008 [facility] Total Protein 7.2 GM/DL 6.2-8.[address] [place] [address] [phone] Albumin 4.1 GM/DL 3.2-5.2 Globulin 3.1 GM/DL 2-4 Albumin/Globulin Ratio 1.3 1-3 Bilirubin Total 0.7 mg/dL 0.4-1.5 Bilirubin Direct < 0.1 mg/dL Low 0.1-0.5 Indirect Bilirubin (SEE NOTE) mg/dL 0.1-0.75 118 Alkaline Phosphatase 68 U/L 39-117 Alt (SGPT) 32 U/L 17-63 Ast (Sgot) 23 U/L 12-42 Laboratory test 06/08/2008 [facility] CPK (Creatine 85 U/L 0- [address] Kin[place]) [place] [address] [phone] Thyroxine Free 1.00 NG/ML 0.61-1.24 119 TSH [...] 5 Kidney failure <15 (or dialysis) 2 [id number] Unable to calculate due to low microalbumin 4 Test Performed by: [place] [address] 5 Test Performed by: [place] [address] 6 Test Performed by: [place] [address] 7 FASTING 10 HOUR 8 Because ethnic [...] in selective patients <6.0%. Please refer to [place] [employer] diabetic care guidelines for further information. 14 SEE RESULT BELOW Name: KOLE SUÁREZ : [address]: Jhon Ravi MD Acct: [id number] Unit: [id number] AGE: 76 Location: [place] [address] Re10/09/17 Dis: 10/11/17 SEX: M Status: DIS IN SPEC: [id number] VICK: 10/10/17-1039 [facility] DR: Jairon Quan MD REQ: [id number] RECD: 10/10/17134 STATUS: ELIJAH GRIFFITH DR: Monroe [...] CONTINUED ON NEXT PAGE DEPARTMENT OF PATHOLOGY, [address] [place] [address] Rico Fields M.D. Director [facility] # [id number] RUN DATE: 10/13/17 [facility] LAB LIVE PAGE 2 Patient: SUÁREZKOLE [id number] (Continued) GROSS DESCRIPTION (Continued) GROSS DESCRIPTION 1. [...] 1121 END OF REPORT DEPARTMENT OF PATHOLOGY, [address] [place] [address] Rico Fields M.D. Director [facility] # [id number] 15 >100 to <200 pg/mL: likely compensated congestive heart failure (CHF) 200 to 400 pg/mL: likely moderate CHF >400 pg/mL: likely moderate to severe CHF 16 SEE RESULT BELOW Name: KOLE SUÁREZ Nikhil : [address]: Windy Figueroa MD Acct: [id number] Unit: [id number] AGE: 76 Location: ED Re10/09/17 SEX: M Status: REG ER SPEC: [id number] VICK: 10/09/17 [facility] DR: Windy Figueroa MD REQ: [id number] RECD: 10/09/17 STATUS: COMP NATALIIAHR DR: Monroe Swift MD _ SOURCE: STOOL SPDESC: ORDERED: Occult Bl, Diag Procedure Result Reported Site Stool Occult Blood (1) Final 10/09/17- 951 ML Stool Occult Blood Positive * ML - MAIN LAB ([facility]) . END OF REPORT * ML=Testing performed at Main Lab DEPARTMENT OF PATHOLOGY, [address] [place] [address] Rico Fields M.D. Director [facility] # [id number] 17 Because ethnic data is not always [...] dialysis) 18 Copy Result to: GENIA SWIFT ([id number]) 19 Copy Result to: GENIA SWIFT ([id number]) 20 Copy Result to: GENIA SWIFT ([id number]) 21 Because ethnic data is not always [...] <15 (or dialysis) 22 Test Performed by: [address] [address] 23 Therapeutic target for the treatment of diabetes Mellitus patients is <7% HBA1C, and in selective patients <6.0%.Please refer to [place] [employer] Diabetic care guidelines for further [...] (or dialysis) 30 Interpretive information available on [facility] Lab Test Catalog at [email or web address] 31 Pricing Actuary: [id number] JERRYNOTricia CORTÉS 32 SEE RESULT BELOW Name: SUÁREZADITYA VARGASDARRIN Tejeda : [address]: Britt Servin MD Acct: [id number] Unit: [id number] AGE: 75 Location: ED Re09/07/16 SEX: M Status: REG ER SPEC: [id number] VICK: 09/07/16 [facility] DR: Britt Servin MD REQ: [id number] RECD: 09/07/16 STATUS: NATALIIA GRIFFITH DR: Monroe Swift MD _ SOURCE: NASAL SPDESC: ORDERED: Flu A B Request Procedure Result Reported Site Rapid Influenza A B Request Final 09/07/161853 ML Specimen received for Influenza A/B Molecular testing * ML - MAIN LAB ([facility]) . END OF REPORT * ML=Testing performed at Main Lab DEPARTMENT OF PATHOLOGY, [address] [place] [id number] Rico Fields M.D. Director [facility] # [id number] 33 Because ethnic data is not always [...] inflammation: >10.00 35 Result TnIDx:0.18 Called to FYN1975 at: 19:13:12 by:[email or web address] Read back by: [id number] 99th percentile=0.04 ng/mL Troponin results at [facility] and [facility] are not interchangeable. 36 [facility] Severe Sepsis and Septic Shock Management Bundle Measure requires all lactic acids initially measuring >2.0 mmol/L be repeated. 37 >100 to <200 pg/mL: likely compensated congestive heart failure (CHF) 200 to 400 pg/mL: likely moderate CHF >400 pg/mL: likely moderate to severe CHF 38 SEE RESULT BELOW Name: KOLE SUÁREZ : [address]: Everardo Cutler MD Acct: [id number] Unit: [id number] AGE: 75 Location: ICU [id number] Re09/07/16 Dis: 09/08/16 SEX: M Status: DIS IN SPEC: [id number] VICK: 09/07/16 [facility] DR: Britt Servin MD REQ: [id number] RECD: 09/07/16 STATUS: NATALIIA GRIFFITH DR: Monroe Swift MD _ SOURCE: BLOOD,VENO SPDESC: ORDERED: Blood Cult Procedure Result Reported Site Aerobic Culture Bottle Final 09/12/16- 1906 ML No Growth Day 5 Anaerobic Culture Bottle Final 09/12/16- 1906 ML No Growth Day 5 * ML - MAIN LAB ([facility]) . END OF REPORT * ML=Testing performed at Main Lab DEPARTMENT OF PATHOLOGY, [address] [place] [address] Rico Fields M.D. Director [facility] # [id number] 39 Because ethnic data is not always [...] and in selective patients <6.0%.Please refer to [place] [employer] Diabetic care guidelines for further [...] [address]: Marline Kim MD Acct: [id number] Unit: [id number] AGE: 74 Location: [facility] Re06/07/15 SEX: M Status: REG REF SPEC: [id number] VICK: 06/07/15 [facility] DR: Marline Kim MD REQ: [id number] RECD: 06/07/15 STATUS: NATALIIA GRIFFITH DR: Monroe Weiss MD _ SOURCE: URINE SPDESC: ORDERED: Urine Culture QUERIES: Urine Source: Clean Catch Procedure Result Verified Site Urine Culture Final 06/09/15- 0901 ML No Growth Day 2 (<1,000 CFU/mL) * ML - MAIN LAB ([facility]) . END OF REPORT * ML=Testing performed at Main Lab DEPARTMENT OF PATHOLOGY, [address] [place] [address] Rico Fields M.D. Director [facility] # [id number] 58 Therapeutic target for the treatment of diabetes Mellitus patients is <7% HBA1C, and in selective patients <6.0%.Please refer to [place] [employer] Diabetic care guidelines for further [...] and in selective patients <6.0%.Please refer to [place] [employer] Diabetic care guidelines for further information. 70 Microalbuminuria in a random sample is defined as: Microalbumin/Creatinine ratio of 30-299 ug/mg. 71 Therapeutic target for the treatment of diabetes Mellitus patients is <7% HBA1C, and in selective patients <6.0%.Please refer to [place] [employer] Diabetic care guidelines for further information. 72 Therapeutic target for the treatment of diabetes Mellitus patients is <7% HBA1C, and in selective patients <6.0%.Please refer to [place] [employer] Diabetic care guidelines for further [...] LEVELS OF PSA MEASURED USING THE [employer] ACCESS HYBRITECH IMMUNOASSAY SHOULD NOT BE INTERPRETED [...] change was based on recommendations from the [place] [employer]. 108 Please note change in reference range effective 08 . 109 A metabolite of Naproxen, O-desmethylnaproxen, has been shown to interfere with the [place] method for measuring total bilirubin. Samples from [...] (or dialysis) 111 ----- RUN DATE: 02/06/09 [facility] NMI LIVE PAGE 1 RUN TIME: 1442 Specimen Inquiry RUN USER: INTERFACE -- Name: KOLE SUÁREZ Status: REG REF Re02/04/09 Age/Sex: 68/M Unit#: [id number] Location: END : 42 -- Specimen: [id number] [facility] Spec Date: 02/04/[address]: Juan Pablo [...] 02/06/09 1442 -- -- DEPARTMENT OF PATHOLOGY, [address] [place] [address] [facility] Permit #[id number] Rico Fields M.D. Director Rosa Medina M.D. Senior Contracts Manager Dir teja -- 112 Anion gap measurement may be of limited value in the presence of any alkalosis, especially in a combined acid base disorder. . 113 Note change in reference range as of 04/05/08. The change was based on recommendations from the [place] [employer]. 114 Please note change in [...] SERUM LEVELS OF PSA MEASURED USING THE [employer] ACCESS HYBRITECH IMMUNOASSAY SHOULD NOT BE INTERPRETED ABSOLUTE EVIDENCE OF THE PRESENCE OR ABSENCE OF DISEASE. THE PSA VALUE SHOULD BE USED IN CONJUNCTION WITH OTHER PERTINENT CLINICAL DIAGNOSTIC PROCEDURES. A PSA value in the range of 0.1 to 0.6 ng/ml is indeterminate if being used as an indicator of recurrent or residual disease. . Procedures Date Code Description Status 05/03/2018 94461 EKG Tracing & Interpretation Completed 04/29/2018 40374 Pace Maker Eval W/Iterative Adjment Dual Lead Completed 10/22/2017 23206 Pace Maker Eval W/Iterative Adjment Dual Lead Completed 10/22/2017 04193 Pace Maker Eval W/Iterative Adjment Dual Lead Completed 04/23/2017 74200 Pace Maker Eval W/Iterative Adjment Dual Lead Completed 01/06/2017 35549 ECHO Transthorasic Realtime 2D W Doppler & Color Flow Completed Hosp 12/16/2016 89410 Pace Maker Eval W/Iterative Adjment Dual Lead Completed 12/11/2016 [id number] Diabetic Retinal Eye Exam Completed 11/11/2016 87651 Pace Maker Eval W/Iterative Adjment Dual Lead Completed 10/14/2016 03053 Pace Maker Eval W/Iterative Adjment Dual Lead Completed 09/23/2016 28929 EKG Tracing & Interpretation Completed 09/08/2016 19744 EKG, Interpretation Only Completed 09/08/2016 72154 Endo-Trachial Tube Completed 09/07/2016 45250 ECHO Transthoracic, Real-Time 2D With Doppler And Completed Color Flow 09/07/2016 90292 Pace Maker Eval W/Iterative Adjment Dual Lead Completed 08/17/2016 09817 Diffusing Capacity Completed 08/17/2016 87257 Spirometry Incl Graphic Record Completed 06/16/2016 38992 Cath PLMT&NJX L Ventriculog Img S&I Completed 06/16/2016 52870 Intravascular Ultrasound (Coron) Completed 05/27/2016 47325 ECHO Transthorasic Realtime 2D W Doppler & Color Flow Completed Hosp 04/01/2016 74240 EKG Tracing & Interpretation Completed 03/27/2016 80433 Inject/Drain Joint/Bursa Major W/O US Completed 06/20/2015 43262 EKG, Interpretation Only Completed 06/18/2015 01168 TKR Total Knee Replacement Completed 06/18/2015 76554 TKR Total Knee Replacement Completed 05/06/2015 20741 EKG Tracing & Interpretation Completed 05/01/2015 82434 Treadmill Interp/Report Only Completed 05/01/2015 13605 Stress Test Supervsn W/Out I/R Completed 02/07/2015 Inject/Drain Joint/Bursa Major W/O US Completed 01/31/2015 Inject/Drain Joint/Bursa Major W/O US Completed 01/24/2015 Inject/Drain Joint/Bursa Major W/O US Completed 01/03/2015 98809 ECHO Transthorasic Realtime 2D W Doppler & Color Flow Completed Hosp 12/04/2014 59036 EKG Tracing & Interpretation Completed 10/30/201495672 Inject/Drain Joint/Bursa Major W/O US Completed 03/27/2014 36670 Xray Knee 3 Views Completed 03/16/2014 62802 EKG Tracing & Interpretation Completed 06/20/2013 49487 EKG Tracing & Interpretation Completed 12/16/2012 46034 EKG Tracing & Interpretation Completed 10/25/2012 15640 Xray Knee 3 Views Completed 10/25/2012 87330 Xray Knee 3 Views Completed 10/25/2012 57364 Rad Exam; Knee, Ap&L Completed 07/26/2012 38181 EKG Tracing & Interpretation Completed 06/27/2010 83648 Arthroscopy,Knee,Meniscectomy Medial Or Lateral Completed 04/29/2010 46060 Xray Knee 3 Views Completed 12/18/2009 26596 Impl Or Replac Device For Intrathecal Or Epidural Drug Completed Infusion 02/04/2009 64048960 Colonoscopy Completed Encounters Type Date Location Provider Dx Diagnosis Office Visit 05/03/2018 [facility] Jess Jones, Z95.2 Presence of 11:15a [...] I10 Essential (primary) hypertension Office Visit 10/11/2017 [facility] Jhon K92.2 Gastrointestinal 10:05a Asschico esquivel M.D. hemorrhage, Hospitalists unspecified E78.5 Hyperlipidemia, unspecified E03.9 Hypothyroidism, unspecified Z86.711 Personal history of pulmonary embolism Office Visit 10/10/2017 [facility] Jhon K92.2 Gastrointestinal 9:58a Asschico esquivel M.D. hemorrhage, Hospitalists unspecified E78.5 Hyperlipidemia, unspecified E03.9 Hypothyroidism, unspecified Z86.711 Personal history of pulmonary embolism Office Visit 10/09/2017 [facility] Aparna K92.2 Gastrointestinal 9:57a Assocchico D.O. hemorrhage, [...] Encounter for immunization Office Visit 04/20/2017 11:15a [facility] Jess Jones, Z95.0 Presence of Of Marge Brock cardiac pacemaker I47.2 Ventricular tachycardia Office Visit 02/22/2017 11:30a Marge Glover I25.10 Athscl heart Eric Swift M.D.,FACP disease of Rd [place] coronary artery w/o ang pctrs I10 Essential (primary) hypertension M19.011 Primary osteoarthritis, right shoulder E11.9 Type 2 diabetes mellitus without complications Office Visit 01/27/2017 11:20a [facility] Joe Weiss, Z95.2 Presence of Of Marge AT [facility] Delmy, FAC, prosthetic heart FSCAI valve I25.10 Athscl heart disease of [place] coronary artery w/o ang pctrs I10 Essential (primary) hypertension Z95.0 Presence of cardiac pacemaker Office Visit 11/20/2016 9:20a [facility] Internal Monroe Glover Z00.01 Encounter for Medicine - Delmy Swift,FACP general adult [address] medical exam w abnormal findings I26.99 Other pulmonary embolism without acute cor pulmonale I10 Essential (primary) hypertension M25.512 Pain in left shoulder E11.9 Type 2 diabetes mellitus without complications 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 cardiac pacemaker Office Visit 11/04/2016 2:20p [facility] Internal Monroe Glover I26.99 Other pulmonary Medicine - [place], embolism without Rd Delmy,FACP acute cor pulmonale M25.562 Pain in left knee M25.561 Pain in right knee Office Visit 09/23/2016 11:20a [facility] Joe Weiss, I25.10 Athscl heart Of Sack Maker AT [facility] Delmy, [facility], disease of [facility] [place] coronary artery w/o ang pctrs I10 Essential (primary) hypertension Z95.2 Presence of prosthetic heart valve Z95.0 Presence of cardiac pacemaker Office Visit 09/14/2016 11:30a [facility] Internal Monroe Glovre I26.99 Other pulmonary Medicine - Delmy Swift,FACP embolism without [address] acute cor pulmonale I25.10 Athscl heart disease of [place] coronary artery w/o ang pctrs I10 Essential (primary) hypertension Z95.2 Presence of prosthetic heart valve Office Visit 09/08/2016 [facility] Jose Leos I26.02 Saddle embolus 10:37a chico Farley II, M.D. of pulmonary Hospitalists artery with acute cor pulmonale Z95.1 Presence of aortocoronary bypass graft Z95.0 Presence of cardiac pacemaker E03.9 Hypothyroidism, unspecified Office 09/07/2016 [facility] Alejandro J18.1 Lobar Visit 10:36a Assoc,JHONY Angel pneumonia, Hospitalists unspecified organism Z95.1 Presence of aortocoronary bypass graft Z95.0 Presence of cardiac pacemaker E03.9 Hypothyroidism, unspecified Office Visit 09/07/2016 11:20a [facility] Joe Weiss, I25.10 Athscl heart Of [facility] AT [facility], [facility], disease of FSCAI [place] coronary artery w/o ang pctrs I35.0 Nonrheumatic aortic (valve) stenosis Z95.2 Presence of prosthetic heart valve Z95.0 Presence of cardiac pacemaker R00.0 Tachycardia, unspecified Office Visit 06/24/2016 2:45p [facility] Joe Weiss, Z48.812 Encntr for Of [facility] AT [facility], [facility], surgical aftcr FSCAI following surgery on the circ sys I25.10 Athscl heart disease of [place] coronary artery w/o ang pctrs I35.0 Nonrheumatic aortic (valve) stenosis Office Visit 06/10/2016 3:20p [facility] Joe Weiss, I35.0 Nonrheumatic Of [facility] AT [facility], [facility], aortic (valve) FSCAI stenosis I10 Essential (primary) hypertension I25.10 Athscl heart disease of [place] coronary artery w/o ang pctrs Office Visit 05/15/2016 Orthopedic Andrew Hathaway, M19.011 Primary 2:30p Services Of osteoarthritis, C.M.A. right shoulder Office Visit 04/29/2016 [facility] Internal Monroe Glover M54.14 Radiculopathy, 8:50a Medicine - [place], thoracic region Rd M.D.,FACP I10 Essential (primary) [...] capsule, subsequent encounter Office Visit 04/01/2016 11:20a [facility] Joe Weiss, I10 Essential (primary) Of Sack Maker AT [facility] Delmy, FACC, hypertension FSCAI I35.0 Nonrheumatic aortic (valve) stenosis I25.9 Chronic ischemic heart disease, unspecified E78.5 Hyperlipidemia, unspecified I25.10 Athscl heart disease of [place] coronary artery w/o ang pctrs Office Visit 03/27/2016 11:30a Orthopedic Marline Kim, Z96.651 Presence of right Services Of Delmy artificial knee C.M.A. joint M16.11 Unilateral primary osteoarthritis, right hip M75.41 Impingement syndrome of right shoulder S43.421A Sprain of right rotator cuff capsule, initial encounter Office Visit 07/03/2015 2:30p [facility] Internal Monroe Glover E11.9 Type 2 diabetes Eric Swift M.D.,FACP mellitus without [address] complications Z23 Encounter for immunization Z47.1 Aftercare following joint replacement surgery I71.4 Abdominal aortic aneurysm, without rupture Office Visit 06/20/2015 [facility] Z96.651 Presence of 1:22p Assoc,chico Noland, FIELD ADJUSTER right artificial Hospitalists knee joint I25.10 Athscl heart disease of [place] coronary artery w/o ang pctrs E03.9 Hypothyroidism, unspecified I10 Essential (primary) hypertension Office Visit 06/19/2015 1:22p [facility] Pia S. Z96.651 Presence of Assoc,chico Rendon, N.P. right artificial Hospitalists knee joint I25.10 Athscl heart disease of [place] coronary artery w/o ang pctrs E03.9 Hypothyroidism, unspecified I10 Essential (primary) hypertension Office Visit 06/18/2015 1:20p [facility] Pia S. Z96.651 Presence of Assoc,chico Rendon, N.P. right artificial Hospitalists knee joint I25.10 Athscl heart disease of [place] coronary artery w/o ang pctrs E03.9 Hypothyroidism, unspecified I10 Essential (primary) hypertension Office Visit 05/10/2015 1:40p [facility] [place] M67.472 Ganglion , left Eric Swift M.D.,FACP ankle and foot [address] E03.9 Hypothyroidism, unspecified Office Visit 05/06/2015 1:40p [facility] Joe Weiss, I35.0 Nonrheumatic Of [facility] AT [facility] [place], WANDA, aortic (valve) FSCAI stenosis I25.9 Chronic ischemic heart disease, unspecified I10 Essential (primary) hypertension Z01.810 Encounter for preprocedural cardiovascular examination Office Visit 03/28/2015 3:00p [facility] [place] V70.0 Examination Eric Swift [...] Joint Lower Leg Office Visit 01/25/2015 3:00p [facility] Nurse Visit 401.9 Hypertension Unspec Of [facility] AT [facility] IC Office Visit 01/03/2015 1:00p [facility] Joe Weiss, 424.1 Aortic Valve Of [facility] AT [facility] WANDA Brock, Disorder FSCAI 401.9 Hypertension Unspec 414.9 Ischemic Heart Disease Chronic Unspec 272.4 Hyperlipidemia Other Unspec Office Visit 12/11/2014 1:15p Orthopedic Nithin Cuevas 715.16 Osteoarthrosis Services Of [place] Localized Prim Lower C.M.A. Leg Office Visit 12/04/2014 3:00p [facility] Joe Weiss, 424.1 Aortic Valve [facility] [place], FACC, Disorder [facility] AT [facility] FSCAI 401.9 Hypertension Unspec 414.9 Ischemic Heart Disease Chronic Unspec 272.4 Hyperlipidemia Other Unspec Office Visit 10/25/2014 2:45p Jonnathan Cuevas, 715.16 Osteoarthrosis [facility] [place] Localized Prim Lower C.M.A. Leg Office Visit 03/27/2014 1:15p Orthopedic Nithin Cuevas, 715.16 Osteoarthrosis [facility] [place] Localized Prim Lower C.M.A. Leg Office Visit 03/16/2014 2:45p Chelita Weiss, 414.9 Ischemic Heart [facility] [place], FAC, Disease Chronic Sack Maker AT [facility] FSCAI Unspec 424.1 Aortic Valve Disorder 401.9 Hypertension Unspec 272.4 Hyperlipidemia Other Unspec Office Visit 11/09/2013 3:40p [facility] [place] V70.0 Examination Eric Swift M.D.,[facility] Routine AT Health Care Facility 414.9 Ischemic Heart Disease Chronic Unspec 250.00 Diabetes Mellitus W/O Compl Type II Or Unspec Controlled 441.4 Aneurysm Abdominal W/O Rupture 244.8 Hypothyroidism Other Spec Office Visit 06/20/2013 2:00p [facility] Joe Weiss, 424.1 Aortic Valve Of Marge Brock, [facility], Disorder FSCAI 414.9 Ischemic Heart Disease Chronic Unspec 401.9 Hypertension Unspec 272.4 Hyperlipidemia Other Unspec Office Visit 12/16/2012 3:45p [facility] Joe Weiss, 414.9 Ischemic Heart [facility], Disease Chronic [facility] Unspec 424.1 Aortic Valve Disorder Office Visit 11/28/2012 [facility] Elaina [place] 715.16 Osteoarthrosis 10:10a Eric Swift M.D.,[facility] Localized Prim Lower Tillar Leg 250.00 Diabetes Mellitus W/O Compl Type II Or Unspec Controlled 550.90 Hernia Inguinal W/O Obstruct Or Gangrene Unilateral Unspec Office Visit 10/25/2012 11:30a Orthopedic Nithin Cuevas 715.36 Osteoarthrosis Services [facility] [place] Localzd Not Spec C.M.A. 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0 Dermatitis Due To Medicine [place] Swift,[facility] Drugs [facility] Medicines [place] 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 836.0 Dislocation Knee Tear Of Medial Cartilage Or Meniscus Curren Office Visit 12/18/2009 9:00a DO Not Use [facility] Roberto Carlos, 078.3 Cat Scratch AT Nasrin Keating M.D. Disease E906.5 Bite By Unspec Animal Office Visit 07/01/2009 10:20a DO Not Use Marge [place] 244.9 Hypothyroidism Other AT Nasrin Swift M.D.,[facility] Unspec 401.1 Hypertension Benign 424.1 Aortic Valve Disorder 272.2 Hyperlipidemia Mixed 550.90 Hernia Inguinal W/O Obstruct Or Gangrene Unilateral Unspec Office Visit 06/14/2008 2:00p DO Not Use [place]ge [place] V70.0 Examination AT Nasrin Swift M.D.,[facility] General Medical Routine AT Health Care Facility v70.0 Examination General Medical Routine AT Health Care Facility 401.1 Hypertension Benign 244.9 Hypothyroidism Other Unspec 790.21 Impaired Fasting Glucose 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 at [facility] Internal [facility]10/27/2018 7:00 am - Pacemaker Schedule at [facility]07/27/2018 - [place] Swift M.D.,FACPE11.9 Type 2 [...]
[2018-08-10] MEDS ORDERED: Tetan/Diph/Pertus SYR(Tdap)* 0.5 ML SYR(BOOSTRIX) use SYR IM ONE (13:56)
--- NOTE | 2018-08-11 07:45 | UC ---
Course/Dx - Diagnoses Provider Diagnoses: Patient left without being seen Discharge - Sign-Out/Discharge Documenting (check all that apply): Post-Discharge Follow Up All imaging exams completed and their final reports reviewed: No Studies - Discharge Plan Condition: Stable Disposition: LEFT WITHOUT BEING SEEN Referrals: Omari Gonzalez MD [Primary Care Provider] - - Billing Disposition and Condition Condition: STABLE Disposition: Left Without Being Seen
== END 2018-08-10 14:16 | disposition left against medical advice (07) ==
LOC: UCEAST 13:46
DX: Z53.21 Procedure and treatment not carried out due to patient leaving prior to being seen by health care provider (principal)